=== PATIENT | female | born 1955 | race Caucasian/White ===

== ENCOUNTER 2020-12-21 06:35 | Outpatient (REF) | payer MEDICARE, SELFPAY ==
[2020-12-21 12:02] LABS: Alanine Aminotransferase 35 U/L (0-31); Anion Gap 17 (12-20); Aspartate Amino Transferase 31 U/L (5-31); Blood Urea Nitrogen 14 mg/dL (9-16); Calcium 8.7 mg/dL (8.4-10.2); Carbon Dioxide 25 mmol/L (22-29); Chloride 107 mmol/L (96-108); Cholesterol 137 mg/dL; Estimated Glomerular Filt Rate > 60; Glucose Fasting 111 mg/dL (60-99); HDL Cholesterol 62 mg/dL; LDL Cholesterol Calculated 60 mg/dl; Potassium 4.6 mmol/L (3.3-5.1); Sodium 144 mmol/L (135-145); Triglycerides 79 mg/dL
[2020-12-21 12:03] LABS: Vitamin D 25-OH Total 31.8 ng/mL (>30)
== END 2020-12-21 06:36 | disposition home or self-care (01) ==
LOC: HO.HMGCLDS 06:35
PROVIDERS: PCP Internal Medicine; Visit Provider Internal Medicine
DX: E78.5 Hyperlipidemia, unspecified (principal); I10 Essential (primary) hypertension; Z78.0 Asymptomatic menopausal state
CPT/HCPCS: 36415; 80048; 80061; 82306; 84450; 84460

== ENCOUNTER 2021-04-27 07:38 | Outpatient (REF) | payer MEDICARE, SELFPAY ==
[2021-04-27 11:44] LABS: Alanine Aminotransferase 34 U/L (0-31); Anion Gap 12 (12-20); Aspartate Amino Transferase 29 U/L (5-31); Blood Urea Nitrogen 13 mg/dL (9-16); Calcium 9.1 mg/dL (8.4-10.2); Carbon Dioxide 25 mmol/L (22-29); Chloride 108 mmol/L (96-108); Cholesterol 143 mg/dL; Estimated Glomerular Filt Rate > 60; Glucose Fasting 113 mg/dL (60-99); HDL Cholesterol 57 mg/dL; LDL Cholesterol Calculated 68 mg/dl; Potassium 4.4 mmol/L (3.3-5.1); Sodium 141 mmol/L (135-145); Triglycerides 93 mg/dL
[2021-04-27 11:54] LABS: Vitamin D 25-OH Total 35.4 ng/mL (>30)
== END 2021-04-27 07:39 | disposition home or self-care (01) ==
LOC: HO.HMGCLDS 07:38
PROVIDERS: PCP Internal Medicine; Visit Provider Internal Medicine
DX: E78.5 Hyperlipidemia, unspecified (principal); I10 Essential (primary) hypertension; Z78.0 Asymptomatic menopausal state
CPT/HCPCS: 36415; 80048; 80061; 82306; 84450; 84460

== ENCOUNTER 2021-04-30 08:48 | Outpatient (REF) | payer MEDICARE, SELFPAY ==
[2021-05-01 08:33] LABS: BV Int Neg Control Negative (Negative); BV Int Pos Control Positive (Positive)
== END 2021-04-30 08:49 | disposition home or self-care (01) ==
LOC: HO.LAB 08:48
PROVIDERS: PCP Internal Medicine; Visit Provider Advanced Practice Midwife
DX: Z01.411 Encounter for gynecological examination (general) (routine) with abnormal findings (principal); N95.1 Menopausal and female climacteric states; N89.8 Other specified noninflammatory disorders of vagina
CPT/HCPCS: 87480; 87510; 87660

== ENCOUNTER 2021-06-25 07:56 | Outpatient (REF) | payer MEDICARE, SELFPAY ==
--- NOTE | ~2021-06-25 | MM_ITS ---
EXAMINATION: MM SCREENING DIGITAL BREAST TOMOSYNTHESIS, BILATERAL CLINICAL INFORMATION: Screening. Asymptomatic. The lifetime risk of breast cancer based on the Tyrer-Cuzick Model is 9%. COMPARISON: Mammography: 06/19/2020, 02/19/2019, 02/16/2018 TECHNIQUE: Digital breast tomosynthesis is performed in both the craniocaudal and mediolateral oblique views along with computer-aided detection (CAD). Synthesized 2D images are generated from the tomosynthesis. Additional right CC and additional left MLO views are provided. FINDINGS: There are scattered areas of fibroglandular density (ACR BI-RADS breast composition Category b). There are no significant masses, abnormal calcifications, or other abnormalities. Parenchymal pattern is similar to prior exams. No developing density. The axilla are unremarkable. MM/MM tomosynthesis screening BI IMPRESSION: No mammographic evidence of malignancy. ASSESSMENT: BI-RADS 1: Negative RECOMMENDATION: Routine annual mammography screening. This patient's information was entered into a reminder system with a target due date for their next mammogram.
== END 2021-06-25 07:57 | disposition home or self-care (01) ==
LOC: HO.MAMMO 07:56
PROVIDERS: Visit Provider Internal Medicine
DX: Z12.31 Encounter for screening mammogram for malignant neoplasm of breast (principal)
CPT/HCPCS: 77063; 77067

== ENCOUNTER 2021-10-06 12:00 | Outpatient (REF) | payer MEDICARE, SELFPAY ==
[2021-10-06 12:22] LABS: Binax Internal Control QC Valid; Binax Now Covid-19 Ag Negative (Negative)
== END 2021-10-06 12:01 | disposition home or self-care (01) ==
LOC: HO.HMGCLDS 12:00
PROVIDERS: PCP Internal Medicine; Visit Provider Internal Medicine
DX: J06.9 Acute upper respiratory infection, unspecified (principal)
CPT/HCPCS: 36415

== ENCOUNTER 2021-11-10 07:41 | Outpatient (REF) | payer MEDICARE, SELFPAY ==
[2021-11-10 08:51] LABS: Estimated Average Glucose 117 mg/dL; Hemoglobin A1c % 5.7 %
[2021-11-10 09:05] LABS: Alanine Aminotransferase 21 U/L (0-31); Anion Gap 15 (12-20); Aspartate Amino Transferase 19 U/L (5-31); Blood Urea Nitrogen 15 mg/dL (9-16); Calcium 9.8 mg/dL (8.4-10.2); Carbon Dioxide 25 mmol/L (22-29); Chloride 105 mmol/L (96-108); Cholesterol 155 mg/dL; Estimated Glomerular Filt Rate > 60; Glucose Fasting 112 mg/dL (60-99); HDL Cholesterol 64 mg/dL; LDL Cholesterol Calculated 76 mg/dl; Potassium 4.6 mmol/L (3.3-5.1); Sodium 140 mmol/L (135-145); Triglycerides 78 mg/dL
[2021-11-10 09:05] LABS: Creatinine Urine 85.29 mg/dL; Microalbum/Creatinine Ratio Ur 28.1 ug/mg cr
[2021-11-10 09:26] LABS: Vitamin D 25-OH Total 29.1 ng/mL (>30)
== END 2021-11-10 07:42 | disposition home or self-care (01) ==
LOC: HO.LAB 07:41
PROVIDERS: Absent Provider Internal Medicine Endocrinology, Diabetes & Metabolism; PCP Internal Medicine; Visit Provider Internal Medicine
DX: E11.9 Type 2 diabetes mellitus without complications (principal); E78.5 Hyperlipidemia, unspecified; I10 Essential (primary) hypertension; M85.852 Other specified disorders of bone density and structure, left thigh; Z78.0 Asymptomatic menopausal state
CPT/HCPCS: 36415; 80048; 80061; 82043; 82306; 83036; 84450; 84460

== ENCOUNTER 2021-11-21 11:26 | Outpatient (REF) | payer MEDICARE, SELFPAY ==
--- NOTE | ~2021-11-21 | XR_ITS ---
EXAMINATION: XR RIBS, RIGHT CLINICAL INFORMATION: Chest wall pain COMPARISON: Previous chest x-ray and chest CTA June 2014 TECHNIQUE: 3 views of the right ribs and one view of the chest were obtained. FINDINGS: The cardiac and mediastinal contours are stable. The lungs are clear. There is no pleural effusion. There is a curvilinear lucency seen at the right medial lung apex. This is appreciated in the PA view of the chest. This is not appreciated on the rib views. It is uncertain whether this could represent a small pneumothorax. This is not appreciated on previous exams. There are degenerative changes of the spine. There are postsurgical changes to the cervical spine and surgical clips in the right lower neck. No rib fracture is seen. XR/XR ribs RT min 3V w CXR1V IMPRESSION: No rib fracture seen. Small medial lucency at the right lung apex seen on the PA view of the chest only and not redemonstrated on rib views. It is difficult to exclude a small right apical pneumothorax. Follow-up end expiration chest x-ray should be considered if clinically indicated. Findings will be communicated by the [place] work flow waste machine operator.
== END 2021-11-21 11:27 | disposition home or self-care (01) ==
LOC: HO.HMGCLDS 11:26
PROVIDERS: Visit Provider Internal Medicine
DX: R07.81 Pleurodynia (principal)
CPT/HCPCS: 71101

== ENCOUNTER 2021-11-21 14:40 | Outpatient (REF) | payer MEDICARE, SELFPAY ==
--- NOTE | ~2021-11-21 | XR_ITS ---
EXAMINATION: XR CHEST CLINICAL INFORMATION: Pleura dynamic. Question right apical pneumothorax on the right rib x-ray. COMPARISON: Right RIBS 11/21/2021. TECHNIQUE: 2 views of the chest were obtained. FINDINGS: The lungs are well-expanded and clear of acute pneumonic process. Heart size and pulmonary vascularity is normal. No gross bony abnormality seen. There is mild spondylosis dorsal spine. No lytic process. There are surgical staple in the midline anterior neck from previous intervention. XR/XR chest 2V IMPRESSION: No acute cardiopulmonary process. No visible pneumothorax.
== END 2021-11-21 14:41 | disposition home or self-care (01) ==
LOC: HO.HMGCX 14:40
PROVIDERS: Visit Provider Internal Medicine
DX: R07.81 Pleurodynia (principal)
CPT/HCPCS: 71046

== ENCOUNTER 2021-12-14 08:04 | Outpatient (REF) | payer MEDICARE, SELFPAY ==
--- NOTE | ~2021-12-14 | US_ITS ---
EXAMINATION: US ABDOMEN COMPLETE CLINICAL INFORMATION: Right upper quadrant pain. COMPARISON: Previous abdominal ultrasound January [address] of the abdomen and pelvis January 2017 TECHNIQUE: Real-time imaging of the abdominal viscera. FINDINGS: PANCREAS: Normal. ABDOMINAL AORTA: The proximal, mid, and distal segments are normal in caliber. INFERIOR VENA CAVA: Visualized portions are normal. LIVER: The liver is normal in size. The liver contour is normal. Liver echotexture is increased. No focal hepatic lesion. There is no intrahepatic biliary duct dilatation seen. GALLBLADDER: Normal. The gallbladder is physiologically distended without evidence of stones, sludge, polyps, wall thickening or pericholecystic fluid. COMMON BILE DUCT: Normal in caliber measuring 0.3 cm in diameter. RIGHT KIDNEY: There is a 1 cm cyst in the midpole. There is a 3 mm echogenic density in the upper pole questionable for a stone. No hydronephrosis. No renal calculi or focal parenchymal lesions. The kidney measures 13 cm in maximum dimension. LEFT KIDNEY: Normal. No hydronephrosis. No renal calculi or focal parenchymal lesions. The kidney measures 12 cm in maximum dimension. SPLEEN: The spleen is enlarged. The spleen measures 14.7 cm in maximum dimension. This is similar to previous exams. FREE FLUID: None. US/US abdomen complete IMPRESSION: Echogenic liver probably representing fatty infiltration. Slightly enlarged spleen. Small right renal cyst and question small right renal stone.
== END 2021-12-14 08:05 | disposition home or self-care (01) ==
LOC: HO.HMGCX 08:04
PROVIDERS: Visit Provider Internal Medicine
DX: R10.11 Right upper quadrant pain (principal)
CPT/HCPCS: 76700

== ENCOUNTER 2021-12-25 13:58 | Outpatient (REF) | payer MEDICARE, SELFPAY ==
--- NOTE | ~2021-12-25 | MM_ITS ---
EXAMINATION: BONE DENSITOMETRY CLINICAL INDICATION: Other specified disorders of bone density and structure. COMPARISON: Baseline BD dated 09/04/2018. TECHNIQUE: Using a [employer] DXA System (software version: 13.1) manufactured by [employer], dual-energy x-ray absorptiometry was performed of the lumbar spine and left hip. The images are of good technical quality. Summary results are attached. FINDINGS: AP SPINE L1-L4: Current: BMD 1.244 g/cm2, Z-score 1.0, T-score 0.5, normal, 3.3% increase from baseline (<5% change is not significant). Baseline: BMD 1.204 g/cm2. LEFT FEMUR, NECK: Current: BMD 0.774 g/cm2, Z-score -1.2, T-score -1.9, osteopenia. Baseline: BMD 0.822 g/cm2. LEFT FEMUR, TOTAL: Current: BMD 0.892 g/cm2, Z-score -0.5, T-score -0.9, normal, 4.2% decrease from baseline (<5% change is not significant). Baseline: BMD 0.931 g/cm2. IDENTIFIED RISK FACTORS: Menopause, hysterectomy, glucocorticoids (chronic), history of fracture (adult). HISTORY OF FRACTURE: Other. MEDICATIONS: Vitamin D. MM/XR DEXA axial skeleton IMPRESSION: 1. DIAGNOSIS: Osteopenia based on the lowest T-score value of -1.9 in the femoral neck applying World Health Organization criteria. 2. 10-YEAR FRACTURE RISK PREDICTION, FRAX: Major osteoporotic fracture (clinical spine, forearm, hip or shoulder) 14.5%. Hip fracture 2.3%. 3. Treatment Recommendations: NOF guidelines recommend consideration for treatment in postmenopausal women and men age 50 and older presenting with the following: -A hip or vertebral (clinical or morphometric) fracture. -T-score less than or equal to -2.5 at the femoral neck or spine after appropriate evaluation to exclude secondary causes. -Low bone mass at the hip or spine and a 10-year fracture probability by FRAX of greater than or equal to 3% for hip fracture or greater than or equal to 20% for major osteoporotic fracture based on the [place] adapted WHO algorithm. 4. Other Recommendations: All treatment decisions require clinical judgment and consideration of individual patient factors, including patient preferences, comorbidities, previous drug use, risk factors not captured in the FRAX model (e.g. frailty, falls, vitamin D deficiency, increased bone turnover, interval significant decline in bone density) and possible under or overestimation of fracture risk by FRAX. Additional medical evaluation for secondary cause of low bone mineral density may be appropriate. FUTURE SCAN RECOMMENDATION: People with diagnosed cases of osteoporosis or at high risk for fracture should have regular bone mineral density tests. For patients eligible for Medicare, routine testing is allowed once every 2 years. The testing frequency can be increased to one year for patients who have rapidly progressing disease, those who are receiving or discontinuing medical therapy to restore bone mass, or have additional risk factors.
== END 2021-12-25 13:59 | disposition home or self-care (01) ==
LOC: HO.MAMMO 13:58
PROVIDERS: PCP Internal Medicine; Visit Provider Internal Medicine
DX: Z13.820 Encounter for screening for osteoporosis (principal); M85.852 Other specified disorders of bone density and structure, left thigh; Z78.0 Asymptomatic menopausal state
CPT/HCPCS: 77080

== ENCOUNTER 2022-02-05 11:53 | Outpatient (REF) | payer MEDICARE, SELFPAY ==
[2022-02-05 13:52] LABS: Folate 12.4 ng/mL (> or = 4.0); Vitamin B12 469 pg/mL (200-900)
[2022-02-07 16:21] LABS: Homocysteine 10.7 umol/L (<10.4)
== END 2022-02-05 11:54 | disposition home or self-care (01) ==
LOC: HO.LAB 11:53
PROVIDERS: PCP Internal Medicine; Visit Provider Internal Medicine Endocrinology, Diabetes & Metabolism
DX: D75.89 Other specified diseases of blood and blood-forming organs (principal)
CPT/HCPCS: 36415; 82607; 82746; 83090

== ENCOUNTER 2022-03-04 07:23 | Outpatient (REF) | payer MEDICARE, SELFPAY ==
[2022-03-04 11:28] LABS: Estimated Average Glucose 117 mg/dL; Hemoglobin A1c % 5.7 %
[2022-03-04 11:52] LABS: Alanine Aminotransferase 26 U/L (0-31); Anion Gap 16 (12-20); Aspartate Amino Transferase 23 U/L (5-31); Blood Urea Nitrogen 13 mg/dL (9-16); Calcium 9.1 mg/dL (8.4-10.2); Carbon Dioxide 25 mmol/L (22-29); Chloride 106 mmol/L (96-108); Cholesterol 144 mg/dL; Estimated Glomerular Filt Rate > 60; Glucose Fasting 113 mg/dL (60-99); HDL Cholesterol 60 mg/dL; LDL Cholesterol Calculated 69 mg/dl; Potassium 4.5 mmol/L (3.3-5.1); Sodium 142 mmol/L (135-145); Triglycerides 75 mg/dL
[2022-03-04 12:01] LABS: Vitamin D 25-OH Total 33.1 ng/mL (>30)
== END 2022-03-04 07:24 | disposition home or self-care (01) ==
LOC: HO.HMGCLDS 07:23
PROVIDERS: PCP Internal Medicine; Visit Provider Internal Medicine
DX: E11.9 Type 2 diabetes mellitus without complications (principal); I10 Essential (primary) hypertension; E78.5 Hyperlipidemia, unspecified; E04.2 Nontoxic multinodular goiter; K75.81 Nonalcoholic steatohepatitis (NASH); M85.852 Other specified disorders of bone density and structure, left thigh
CPT/HCPCS: 36415; 80048; 80061; 82306; 83036; 84450; 84460

== ENCOUNTER → 2022-04-30 13:47 | Outpatient (REF) | payer MEDICARE, SELFPAY ==
--- NOTE | 2022-04-30 13:47 | CA_ITS ---
Transthoracic Echocardiogram Patient (Last, First, Middle): Alecia Eldridge S Gender: Female Date of : 1955 Age: 66 Procedure Date: 04/30/2022 Procedure Type: Transthoracic Echocardiogram Location: OP Height: 162.56 cm Weight: 117.94 kg BSA: 2.19 m2 Heart Rate: 72 bpm BP: 137 / 68 mmHg Beer Merchant: SB Referring MD: Osorio Aguirre MD Stem Cleaning Machine Feeder: Thanh Rahman MD Symptoms: I10 - Essential (primary) hypertension Study Quality: Adequate ECG Rhythm: Sinus Conclusions: - 1. Normal LV systolic function with grade 1 diastolic dysfunction 2. Mildly increased gradient across aortic valve which may suggest early aortic stenosis 3. Moderate mitral calcification 4. Normal RV systolic pressure 5. No pericardial effusion Findings Left Ventricle Normal left ventricular size, thickness, and systolic function. The visually estimated ejection fraction is between 60-65%. Spectral Doppler is indicative of an impaired relaxation filling pattern. E/E prime ratio is <8, consistent with normal filling pressures. Evidence suggests grade I (mild) diastolic dysfunction. Peak GLS is -18.8%, within normal limits Right Ventricle Normal right ventricular cavity size and systolic function. Atria Both atria are normal in size. There is no evidence of interatrial shunt. Aortic Valve There is mild calcification of the aortic valve. The peak aortic gradient is 14 mmHg.The mean gradient is 9 mmHg. Mitral Valve There is mild anterior mitral leaflet thickening. There is moderate mitral annular calcification. There is trace mitral valve regurgitation. There is no mitral valve stenosis. Pulmonic Valve The pulmonic valve was not well visualized. Tricuspid Valve Normal tricuspid valve structure. There is trace tricuspid valve regurgitation. The right ventricular systolic pressure is normal. Normal right atrial pressure. There is no evidence of pulmonary hypertension. Great Vessels All visible segments of the aorta are normal in size. The pulmonary artery was not well visualized. Venous The inferior vena cava is normal in size and collapses greater than 50% with inspiration. Pericardium/Pleural There is no evidence of pericardial effusion. Prior Study Comparison slightly increased gradient across aortic valve Measurements 2D Linear Measurements IVSd: 1.16 0.6-0.9/0.6-1.0 cm LVIDd: 4.95 3.9-5.3/4.2-5.9 cm LVIDd Index: 2.26 2.4-3.2/2.2-3.1 cm/m2 LVIDs: 3.41 2.0-3.6 cm LVPWd: 0.99 0.7-1.1 cm LA Diam: 4.20 2.7-3.8/3.0-4.0 cm LAIDs Index: 1.92 1.5-2.3 cm/m2 LV Mass: 245.30 67-162/88-224 g LV Mass Index: 112.01 43-95/49-115 g/m2 LVOT Diam: 1.80 3.0+(-)1.3 cm 2D Systolic Function EF 4C: 65.20 >55% Mitral Valve MV Pk E: 0.89 MV PK A: 0.86 MV Decel Time: 167.00 E/A: 1.00 E'Lateral: 7.94 E'Medial: 7.51 E/E' Med: 11.90 E/E' Lat: 11.30 PHT: 49.00 MVA PHT: 4.49 Decel [place]: 5.37 Aortic Valve AoV Pk Ranjit: 1.89 AoV Mn Ranjit: 1.40 AoV VTI: 0.40 AoV Pk Grad: 14.00 Aov Mn Grad: 9.00 YONY Cont.VTI: 2.08 LVOT LVOT Pk Ranjit: 1.43 LVOT Mn Ranjit: 1.02 LVOT VTI: 0.32 LVOT Pk Grad: 8.00 LVOT Mn Grad: 5.00 LVOT Diam: 1.80 LVOT Area: 2.54 Diastolic Function MV Pk E: 0.89 MV Pk A: 0.86 E/A: 1.00 E'Medial: 7.51 E/E' Med: 11.90 E' Laterial: 7.94 E/E' Lat: 11.30 Right Ventricle TAPSE (mm): 24.80 TVS' Ranjit: 15.30 Tricuspid Valve TR Pk Ranjit: 2.37 TR Pk Grad: 22.00 RA Press: 3.00 RVSP: 25.00 Great Vessels Aorta Sinus of Valsalva: 3.00 2.0-3.5 cm Ao Asc: 3.50 2.1-3.4 cm Ao Arch: 3.10 Pulmonary Veins Pulm Vein S/D 1.50 Pulmonary Valve PV Pk Ranjit: 1.02 Peak PV Grad: 4.00 Updated in Other Vendor System with Status of Final Thanh Rahman MD electronically signed on 05/01/2022 12:06:56 PM with status of Final
== END ==
LOC: HO.CARD 13:47
PROVIDERS: PCP Internal Medicine; Visit Provider Internal Medicine
DX: R01.1 Cardiac murmur, unspecified (principal); I10 Essential (primary) hypertension
CPT/HCPCS: 93306; 93356

== ENCOUNTER → 2022-05-29 07:41 | Outpatient (BNVA) | payer MEDICARE, SELFPAY | PROVIDERS: PCP Internal Medicine; Visit Provider Nurse Practitioner Family | DX: G47.9 Sleep disorder, unspecified (principal); R06.83 Snoring; R53.82 Chronic fatigue, unspecified; R06.01 Orthopnea; E66.9 Obesity, unspecified; Z68.41 Body mass index [BMI] 40.0-44.9, adult | CPT/HCPCS: 99202 ==

== ENCOUNTER 2022-06-28 07:44 | Outpatient (REF) | payer MEDICARE, SELFPAY ==
--- NOTE | ~2022-06-28 | MM_ITS ---
EXAMINATION: MM SCREENING DIGITAL BREAST TOMOSYNTHESIS, BILATERAL CLINICAL INFORMATION: Screening. Asymptomatic. The lifetime risk of breast cancer based on the Tyrer-Cuzick Model is 7%. COMPARISON: Mammography: 06/25/2021, 06/19/2020, 02/19/2019 TECHNIQUE: Digital breast tomosynthesis is performed in both the craniocaudal and mediolateral oblique views along with computer-aided detection (CAD). Synthesized 2D images are generated from the tomosynthesis. FINDINGS: There are scattered areas of fibroglandular density (ACR BI-RADS breast composition Category b). There are no significant masses, abnormal calcifications, or other abnormalities. Breast tissue composition borders on predominantly fatty. Background stromal markings are normal. No significant changes. MM/MM tomosynthesis screening BI IMPRESSION: No mammographic evidence of malignancy. ASSESSMENT: BI-RADS 1: Negative RECOMMENDATION: Routine annual mammography screening. This patient's information was entered into a reminder system with a target due date for their next mammogram.
== END 2022-06-28 07:45 | disposition home or self-care (01) ==
LOC: HO.MAMMO 07:44
PROVIDERS: PCP Internal Medicine; Visit Provider Internal Medicine
DX: Z12.31 Encounter for screening mammogram for malignant neoplasm of breast (principal)
CPT/HCPCS: 77063; 77067

== ENCOUNTER → 2022-07-04 21:56 | Outpatient (REF) | payer MEDICARE, SELFPAY | LOC: HO.SL 21:56 | PROVIDERS: Visit Provider Nurse Practitioner Family | DX: G47.33 Obstructive sleep apnea (adult) (pediatric) (principal); R06.02 Shortness of breath | CPT/HCPCS: 95810 ==

== ENCOUNTER → 2022-08-01 13:33 | Outpatient (BNVA) | payer MEDICARE, SELFPAY | PROVIDERS: PCP Internal Medicine; Referring Provider Internal Medicine; Visit Provider Internal Medicine Cardiovascular Disease | DX: R07.89 Other chest pain (principal); I35.0 Nonrheumatic aortic (valve) stenosis; I44.7 Left bundle-branch block, unspecified | CPT/HCPCS: 93005; 99202 ==

== ENCOUNTER → 2022-09-02 08:19 | Outpatient (REF) | payer MEDICARE, SELFPAY ==
--- NOTE | ~2022-09-02 | NM_ITS ---
Myocardial perfusion study Indication: Chest pain with left bundle branch block Technique: The patient was brought in for a Lexiscan perfusion study on 09/02/2022. Patient performed low-level exercise and was injected 0.4 mg of Lexiscan intravenously. Within a minute of injection, 45 mCi of sestamibi was given intravenously. Images were obtained using the SPECT gamma camera interlaced with the gating device. Images were obtained in supine position. Resting perfusion study was performed on 09/03/2022. Patient was administered 45 mCi of sestamibi intravenously at rest. Images were then obtained in supine position. Images obtained with and without CT attenuation. Total DLP 158 mGy-cm. Images were processed with the software and compared side to side in short axis, horizontal long axis and vertical long axis views. Findings: Both stress and rest perfusion study was suboptimal due to intense uptake interfering with myocardial uptake in the inferior wall The stress perfusion study showed non attenuated images show overall normal uptake of radiotracer in all segments of LV myocardium with some of the apical wall. Attenuation corrected images show mildly reduced uptake in the apex as well as mildly reduced uptake in the basal lateral wall of the LV myocardium.. The gated study shows normal LV systolic function with calculated LVEF of 55%. LV cavity is normal in size. The gated study shows normal systolic wall thickening and contraction of segments. Resting study shows non attenuated images show mildly reduced uptake in the distal lateral and apex of the LV myocardium. Attenuation corrected images show mildly reduced uptake in the distal septal wall of the LV myocardium.. Gating at rest reveals normal systolic wall motion with ejection fraction at 49%. The findings are consistent with likely normal myocardial perfusion. NM/NM agnes perf SPECT rest & str Impression: 1. Myocardial perfusion imaging study shows likely normal myocardial perfusion 2. Gated LVEF is 55% 3. Transient ischemic dilatation not present EKG is Nondiagnostic for ischemia
--- NOTE | 2022-09-02 08:21 | CA_ITS ---
Acquisition Time: 2022-09-02 08:39:34 Total Exercise Time: 00:02:00 Test Indications: Chest Pain unspecified, LBBB uns Medications: See H Protocol: LEXISCAN Max HR: 100 BPM 64% of Pred: 154 BPM Max BP: 130/070 mmHG Max Work Load: 1.0 METS Pharmacological stress test with Lexiscan injection, while sitting, without anginal symptoms, without arrythmia, with normotensive response to injection, with nondiagnostic EKG for ischemia. Nuclear images pending. Test reviewed with Dr Rahman. Referred By: Thanh Rahman Overread By: RUSSEL SMITH
== END ==
LOC: HO.CARD 08:19
PROVIDERS: Visit Provider Internal Medicine Cardiovascular Disease
DX: R07.89 Other chest pain (principal); I44.7 Left bundle-branch block, unspecified
CPT/HCPCS: 78452; 93017; A9500; J0280; J2785

== ENCOUNTER 2022-12-02 15:09 | Outpatient (REF) | payer MEDICARE, SELFPAY ==
[2022-12-02 17:22] LABS: TSH reflex Free T4 2.37 uIU/mL (0.32-4.0)
== END 2022-12-02 15:10 | disposition home or self-care (01) ==
LOC: HO.HMGCLDS 15:09
PROVIDERS: PCP Internal Medicine; Visit Provider Internal Medicine Endocrinology, Diabetes & Metabolism
DX: E03.9 Hypothyroidism, unspecified (principal)
CPT/HCPCS: 36415; 84443

== ENCOUNTER 2022-12-03 07:28 | Outpatient (REF) | payer MEDICARE, SELFPAY ==
[2022-12-03 11:39] LABS: MANUAL DIFF FLAG NO
[2022-12-03 11:48] LABS: Basophils Absolute Auto 0.1 X10*3/uL (0.0-0.2); Basophils Percent Auto 0.7 % (0-2); Eosinophils Absolute Auto 0.3 X10*3/uL (0.0-0.4); Eosinophils Percent Auto 3.7 % (0-4); Hematocrit 40.3 % (37.0-47.0); Hemoglobin 13.3 g/dl (12.0-16.0); Imm Gran Abs Auto 0.03 X10*3/uL (0.00-0.03); Imm Gran Pct Auto 0.4 % (0.0-0.4); Lymphocytes Absolute Auto 1.3 X10*3/uL (1.2-4.9); Lymphocytes Percent Auto 19.3 % (20-40); Mean Corpuscular Hemoglobin 32.5 pg (27.0-33.0); Mean Corpuscular Volume 98.5 fL (80.0-98.0); Mean Platelet Volume 12.1 fL (9.4-12.3); Monocytes Absolute Auto 0.4 X10*3/uL (0.1-1.2); Monocytes Percent Auto 6.3 % (2-11); Neutrophils Absolute Auto 4.8 x10*3/uL (2.0-8.3); Neutrophils Percent Auto 69.6 % (45-73); Platelet Count 181 X10*3/uL (160-400); Red Blood Count 4.09 X10*6/uL (4.20-5.50); Red Cell Distribution Width 13.4 % (11.0-16.0); White Blood Count 6.8 X10*3/uL (4.8-10.8)
[2022-12-03 12:33] LABS: Alanine Aminotransferase 34 U/L (0-31); Anion Gap 13 (12-20); Aspartate Amino Transferase 30 U/L (5-31); Blood Urea Nitrogen 15 mg/dL (9-16); Calcium 8.5 mg/dL (8.4-10.2); Carbon Dioxide 26 mmol/L (22-29); Chloride 108 mmol/L (96-108); Cholesterol 152 mg/dL; Estimated Glomerular Filt Rate > 60; Glucose Fasting 123 mg/dL (60-99); HDL Cholesterol 57 mg/dL; LDL Cholesterol Calculated 78 mg/dl; Potassium 4.4 mmol/L (3.3-5.1); Sodium 143 mmol/L (135-145); Triglycerides 89 mg/dL
[2022-12-03 13:01] LABS: Folate 11.9 ng/mL (> or = 4.0); Free T4 (Free Thyroxine) 0.87 ng/dL (0.71-1.85); Thyroid Stimulating Hormone 3.51 uIU/mL (0.32-4.0); Vitamin B12 564 pg/mL (200-900); Vitamin D 25-OH Total 28.3 ng/mL (>30)
== END 2022-12-03 07:29 | disposition home or self-care (01) ==
LOC: HO.HMGCLDS 07:28
PROVIDERS: PCP Internal Medicine; Visit Provider Internal Medicine
DX: E03.9 Hypothyroidism, unspecified (principal); M85.852 Other specified disorders of bone density and structure, left thigh; I10 Essential (primary) hypertension; E78.5 Hyperlipidemia, unspecified; E11.9 Type 2 diabetes mellitus without complications
CPT/HCPCS: 36415; 80048; 80061; 82306; 82607; 82746; 84439; 84443; 84450; 84460; 85025

== ENCOUNTER 2022-12-09 09:19 | Outpatient (AMB) | payer MEDICARE, SELFPAY ==
--- NOTE | 2022-12-09 09:45 | MHC.PC.OV ---
Vital Signs 12/09/22 09:53 Height 5 ft 4 in Weight 275 lb BMI 47.2 BP 135/80 Blood Pressure Location Rt radial Position Sitting Pulse 65 Pulse Source Pulse Oximeter Pulse Oximetry (%) 97 Oxygen Delivery Method Room Air Intake Visit Reasons: Annual Physical Intake Note: Pt is here today for her PE Allergies metformin Adverse Reaction (Verified 10/23/23 16:27) Diarrhea seasonal Allergy (Unknown, Uncoded 10/23/23 16:27) sneezing, watery itchy eyes Medication List - Last Reconciled 12/09/22 by Akanksha Escamilla MD aspirin (Adult Low Dose Aspirin) 81 mg PO DAILY atorvastatin 10 mg PO DAILY blood sugar diagnostic (Nonlinear Dynamics Ultra Blue Test Strip) Check blood sugar twice a day before meals as directed cholecalciferol (vitamin D3) 50 mcg PO DAILY cinnamon bark (Cinnamon) 1,000 mg PO DAILY fexofenadine (Kellen Allergy) 180 mg PO DAILY gabapentin 800 mg PO TID levothyroxine 88 mcg PO QAM lisinopril 10 mg PO DAILY 90 days mecobalamin (vitamin B12) (B12 Active) 1,000 mcg PO DAILY salsalate 750 mg PO BID PRN turmeric 1,000 mg PO DAILY Tobacco use date assessed: 12/09/22 Fall risk assessment: No Falls in past year Last assessed Fall Risk: 12/09/22 [facility] Annual Physical HPI Details [age]-year-old lady here today for her physical exam. She has had a bone density done 2021 which showed only presence of osteopenia in left femoral neck. Has an appointment for her screening mammogram later this year. She sees [place] at [facility] for her routine Pap and pelvic exam, scheduled later this year for follow-up and repeat Pap smear. She had a negative colonoscopy screening done by Dr. Ross in 2016, repeat due in 2026. She is up-to-date with all her vaccinations, gets yearly flu shot. She sees Dr. Carolyn Stiles for follow-up on her hypothyroidism, and benign adrenal adenoma. Has diabetes mellitus, controlled with diet, and has hyperlipidemia, stable controlled on atorvastatin. She also has hypertension currently taking lisinopril 10 mg daily. Takes gabapentin for cervical radiculopathy due to degenerative disc disease in cervical area. [facility] Medical History (Updated 10/23/23 @ 17:19 by Akanksha Escamilla MD) Diabetes mellitus with microalbuminuria, without long-term current use of insulin Chronic fatigue Obesity Sleeps in sitting position due to orthopnea Excessive daytime sleepiness Primary hypothyroidism Osteoarthritis Insomnia Osteopenia of left femoral neck Adrenal mass, right Mixed stress and urge urinary incontinence Multinodular goiter (nontoxic) Chronic venous insufficiency of lower extremity Migraine Osteoarthritis, multiple sites Morbid obesity due to excess calories Melanoma Left malleolar fracture RLS (restless legs syndrome) Thyroid nodule Cervical radiculopathy due to degenerative joint disease of spine LEWIS (nonalcoholic steatohepatitis) Type 2 diabetes mellitus without complication, with no history of insulin use Essential hypertension Dyslipidemia Surgical History (Updated 10/23/23 @ 17:19 by Akanksha Escamilla MD) History of prolapse of bladder Hx of fusion of cervical spine H/O cervical discectomy H/O melanoma excision History of bilateral tubal ligation History of tonsillectomy and adenoidectomy History of bilateral knee replacement Family History Father Colon cancer Skin cancer Prostate cancer Rectal cancer Mother Diabetes mellitus CAD (coronary artery disease) Social History Household Members: Spouse Housing: House Are you a primary customer care coordinator to a significant other at home: No Do you presently have visiting nurse or other home services: No Alcohol intake: never Patient Tobacco Use Status: Never used Tobacco e-Cigarette/Vaping Use: Never Used Second Hand Smoke Exposure: No Substance Use Type: Marijuana service: No Current occupational status: retired Sexual orientation: Straight/Heterosexual Gender identity: Female Cognitive needs: No Hearing needs: No Vision needs: Yes Questionnaire PHQ-9 Over the last 2 weeks, how often have you been bothered by any of the following problems? 1. Little interest or pleasure in doing things: several days 2. Feeling down, depressed, or hopeless: not at all 3. Trouble falling or staying asleep, or sleeping too much: nearly every day 4. Feeling tired or having little energy: several days 5. Poor appetite or overeating: several days 6. Feeling bad about yourself - or that you are a failure or have let yourself or your family down: not at all 7. Trouble concentrating on things, such as reading the newspaper or watching television: not at all 8. Moving or speaking so slowly that other people could have noticed. Or the opposite - being so fidgety or restless that you have been moving around a lot more than usual: not at all 9. Thoughts that you would be better off or of hurting yourself in some way: not at all Total score: 6 Depression Screening Interpretation: Negative 01855 - PHQ-9 Billing: Yes Source: Developed by Drs. Antwon Jones, Edie Zhang, Dandre Sharif and colleagues, with an educational bret from [employer]. Thrive Questionnaire Date Thrive assessed: 12/09/22 I am a: Patient What is your living situation today?: I have a steady place to live Within the past 12 months, did the food you bought not last and you didn't have the money to get more?: Never true Within the past 12 months, did you worry whether your food would run out before you got money to buy more?: Never true Do you have trouble paying for medicines?: No Do you have trouble getting transportation to medical appointments?: No Do you have trouble paying your heating and electricity bill?: No Do you have trouble taking care of your child, family member or friend?: No Do you have trouble with day-to-day activities such as bathing, preparing meals, shopping, managing finances, etc.?: No Are you currently unemployed and looking for a job?: No Are you interested in more education?: No AUDIT C Alcohol Use Questionnaire (AUDIT-C) 1. How often do you have a drink containing alcohol?: Never Total Score: 0 TOM-7 AMB Questionnaire TOM-7 Date TOM - 7 assessed: 12/09/22 Feeling nervous, anxious, or on edge: 0 = Not at all Not being able to stop or control worryin = Several days Worrying too much about different things: 1 = Several days Trouble relaxin = Several days Being so restless that it is hard to sit still: 0 = Not at all Becoming easily annoyed or irritable: 0 = Not at all Feeling afraid as if something awful might happen: 0 = Not at all Total TOM-7 score (0-4 normal; 5-9 mild; 10-14 moderate; 15-21 severe): 3 Source: Developed by Drs. Antwon Jones, Edie Zhang, Dandre Sharif and colleagues, with an educational bret from [employer]. TOM-7 Assessment Billing TOM-7 Assessment Tool: TOM-7 Assessment 64426 Review of Systems Const Denies fever(s), Denies headache(s) and Denies weakness Eyes Details: Used to see Dr. Rodriguez, last eye exam was in 2020 Denies change in vision ENT Denies dizziness and Denies headache(s) Card Denies chest pain, Denies chest pain with activity, Denies syncope, Denies rapid heart rate, Denies pedal edema, Denies lightheadedness, Denies palpitations, Denies dyspnea and Denies dyspnea on exertion Resp Denies cough, Denies dyspnea and Denies dyspnea on exertion GI Denies hematochezia and Denies change in stool character Reports no additional complaints Musc Denies abnormal gait, Denies muscle cramps, Denies muscle weakness, Denies numbness, Denies radiating pain into limb and Denies tingling Skin/Breast Denies breast pain, Denies breast mass, Denies lesions and Denies rash Neuro Denies Abnormal speech present, Denies abnormal gait, Denies dizziness, Denies syncope, Denies headache(s), Denies numbness, Denies tingling and Denies weakness Psych Reports no additional complaints Endo Denies palpitations Hardy/Lymph Reports no additional complaints Aller/Immun Reports no additional complaints Physical exam (Primary Care) Vital Signs: Last Vital Signs Pulse 65 12/09/22 09:53 BP 135/80 12/09/22 09:53 Pulse Ox 97 12/09/22 09:53 Oxygen Delivery Method Room Air 12/09/22 09:53 BMI result Body Mass Index 47.2 BMI Assessment/Plan discussion: High BMI High, discussed plan: lifestyle, weight reduction, dietary and physical activity Tobacco/Smoking Status: Tobacco use Status Tobacco use date assessed 12/09/22 12/09/22 09:48 Patient Tobacco Use Status Never used Tobacco 12/09/22 09:48 e-Cigarette/Vaping Use Never Used 12/09/22 09:48 PHQ-9: PHQ-9 Score PHQ-9: Total score 8 12/10/22 01:16 Depression Screening Interpretation: Negative Thrive Assessment: Date of Thrive Assessment Date Thrive assessed 12/09/22 12/09/22 09:53 Const General: cooperative, comfortable and no acute distress Nutritional Appearance: obese morbidly obese Orientation/consciousness: patient oriented x3 Limitations: ambulation with cane HENMT Mouth: Normal oral and palatal mucosa present and moist mucous membranes Eyes General: appearance normal, both eyes and all related structures Neck Neck: Yes full ROM, Yes no lymphadenopathy and Yes supple Chest Breast/axilla palpation: normal palpation of the breasts Resp Effort & Inspection: normal respiratory effort, able to speak in complete sentences and symmetric chest movement Auscultation: clear to auscultation bilaterally Cardio Other: S1-S2 present regular and rhythm GI Palpation (GI): Soft to palpation, nontender, no guarding and no masses Auscultation: normal bowel sounds Other: Sees [facility] for her routine Pap and pelvic exam, has an appointment later this year General: Yes no CVA tenderness Back/Spine/Pelvis Back: no CVA tenderness and No back tenderness Skin General skin exam: no rashes or lesions noted Neuro General: patient oriented x3, moves all extremities, Normal light touch and pain sensation, no focal motor deficits, CN's II-XI intact bilaterally and normal sensation to monofilament Speech: No Abnormal speech present Extrem General: Yes full ROM and Yes no joint enlargement Psych Appearance: grossly normal and well kempt Mental Status: mental status grossly normal Speech and movement: Normal speech and movement present Affect: normal affect Attitude: cooperative Thought process: Normal thought process present Thought content: Normal thought content present Assessment and Plan Assessment & Plan (1) Annual visit for general adult medical examination with abnormal findings: Code(s): Z00.01 - Encounter for general adult medical examination with abnormal findings Plan: Recent fasting labs reviewed with patient. Continue dental visit every 6 months and yearly eye exams, for diabetes retinopathy screening. Take adequate calcium in diet and vitamin-D 3 at 2000 IU per cap once a day, in addition to weight-bearing exercises to help maintain good muscle tone and weight control. Instructed to do self-breast exam, and with yearly mammogram,, and up-to-date with her bone density scan. She is also up-to-date with her screening colonoscopy, has had all her vaccinations already (2) Osteopenia of left femoral neck: Code(s): M85.852 - Other specified disorders of bone density and structure, left thigh Plan: Continue with taking vitamin-D 3 supplements and adequate calcium from dietary sources, try to do regular weight-bearing exercise can do resistance bands when sitting. Up-to-date with bone density scan (3) Type 2 diabetes mellitus without complication, with no history of insulin use: Comment: Followed by Dr. Carolyn Stiles Code(s): E11.9 - Type 2 diabetes mellitus without complications Plan: Currently diet controlled (4) Essential hypertension: Code(s): I10 - Essential (primary) hypertension Plan: Continue with lisinopril 10 mg daily (5) Dyslipidemia: Code(s): E78.5 - Hyperlipidemia, unspecified Plan: Continue atorvastatin 10 mg daily (6) ISABELLA (obstructive sleep apnea): Comment: A moderate degree of sleep apnea with increased severity in REM sleep. The total AHI was 14/hr, REM AHI was 33/hr and oxygen prasanna was 72% Code(s): G47.33 - Obstructive sleep apnea (adult) (pediatric) (7) Primary hypothyroidism: Comment: ff'd by Dr Carolyn Stiles Code(s): E03.9 - Hypothyroidism, unspecified Plan: On levothyroxine followed by Dr. Carolyn Stiles (8) Adrenal mass, right: Comment: Diagnosed 12/11/2018, negative hormonal screening for hyper aldosteronism [place]'s or pheochromocytoma, evaluated at [facility] endocrine clinic Code(s): E27.8 - Other specified disorders of adrenal gland Plan: Asymptomatic, followed by endocrine clinic at [facility] (9) Thyroid nodule: Comment: Followed at [facility] by Dr. Carolyn Stiles Code(s): E04.1 - Nontoxic single thyroid nodule Plan: Followed by endocrine clinic (10) Cervical radiculopathy due to degenerative joint disease of spine: Code(s): M47.22 - Other spondylosis with radiculopathy, cervical region Plan: Currently on gabapentin Orders: Orders Hemoglobin A1c 04/29/23 E66.9 - Obesity, unspecified, M85.852 - Other specified disorders of bone density and structure, left thigh, E11.9 - Type 2 diabetes mellitus without complications, I10 - Essential (primary) hypertension, E78.5 - Hyperlipidemia, unspecified Lipid Panel 04/29/23 E66.9 - Obesity, unspecified, M85.852 - Other specified disorders of bone density and structure, left thigh, E11.9 - Type 2 diabetes mellitus without complications, I10 - Essential (primary) hypertension, E78.5 - Hyperlipidemia, unspecified Vitamin D 25-OH Total 04/29/23 E66.9 - Obesity, unspecified, M85.852 - Other specified disorders of bone density and structure, left thigh, E11.9 - Type 2 diabetes mellitus without complications, I10 - Essential (primary) hypertension, E78.5 - Hyperlipidemia, unspecified Alanine Aminotransferase 04/29/23 E66.9 - Obesity, unspecified, M85.852 - Other specified disorders of bone density and structure, left thigh, E11.9 - Type 2 diabetes mellitus without complications, I10 - Essential (primary) hypertension, E78.5 - Hyperlipidemia, unspecified Aspartate Amino Transferase 04/29/23 E66.9 - Obesity, unspecified, M85.852 - Other specified disorders of bone density and structure, left thigh, E11.9 - Type 2 diabetes mellitus without complications, I10 - Essential (primary) hypertension, E78.5 - Hyperlipidemia, unspecified Basic Metabolic Panel Fasting 04/29/23 E66.9 - Obesity, unspecified, M85.852 - Other specified disorders of bone density and structure, left thigh, E11.9 - Type 2 diabetes mellitus without complications, I10 - Essential (primary) hypertension, E78.5 - Hyperlipidemia, unspecified Vitamin B12 and Folate 04/29/23 E66.9 - Obesity, unspecified, M85.852 - Other specified disorders of bone density and structure, left thigh, E11.9 - Type 2 diabetes mellitus without complications, I10 - Essential (primary) hypertension, E78.5 - Hyperlipidemia, unspecified Microalbumin, Random (w Creat) 04/29/23 E11.9 - Type 2 diabetes mellitus without complications Medications: Refilled atorvastatin 10 mg PO DAILY 90 caps 3RF gabapentin 800 mg PO TID 270 caps 3RF levothyroxine 88 mcg PO QAM 90 caps 3RF lisinopril 10 mg PO DAILY 90 caps 3RF 90 days salsalate 750 mg PO BID PRN 180 caps 3RF for pain Coding Level of Care Code Est Pt Prev Care >65y(05802) Diagnoses Annual visit for general adult medical examination with abnormal findings Z00.01 Osteopenia of left femoral neck M85.852 Type 2 diabetes mellitus without complication, with no history of insulin use E11.9 Essential hypertension I10 Dyslipidemia E78.5 ISABELLA (obstructive sleep apnea) G47.33 Primary hypothyroidism E03.9 Adrenal mass, right E27.8 Thyroid nodule E04.1 Cervical radiculopathy due to degenerative joint disease of spine M47.22 Additional Codes TOM-7 Assessment Billing - TOM-7 Assessment Tool: TOM-7 Assessment [id number] ([id number])
[2022-12-09 09:53] VITALS: BP 135/80; PULSE 65; O2SAT 97; BMI 47.2
== END 2022-12-09 10:51 | disposition home or self-care (01) ==
LOC: HO.HMGC 09:19
PROVIDERS: PCP Internal Medicine; Visit Provider Internal Medicine
DX: Z00.00 Encounter for general adult medical examination without abnormal findings (principal); E11.69 Type 2 diabetes mellitus with other specified complication; E27.8 Other specified disorders of adrenal gland; M85.852 Other specified disorders of bone density and structure, left thigh; I10 Essential (primary) hypertension; E78.5 Hyperlipidemia, unspecified; G47.33 Obstructive sleep apnea (adult) (pediatric); E03.9 Hypothyroidism, unspecified; E04.1 Nontoxic single thyroid nodule; M47.22 Other spondylosis with radiculopathy, cervical region
CPT/HCPCS: 99397

== ENCOUNTER 2023-05-08 06:02 | Outpatient (REF) | payer MEDICARE, SELFPAY ==
[2023-05-08 12:36] LABS: Thyroid Stimulating Hormone 4.24 uIU/mL (0.32-4.0)
[2023-05-08 12:53] LABS: Creatinine Urine 102.75 mg/dL
== END 2023-05-08 06:03 | disposition home or self-care (01) ==
LOC: HO.HMGCLDS 06:02
PROVIDERS: Absent Provider Internal Medicine Endocrinology, Diabetes & Metabolism; PCP Internal Medicine; Visit Provider Internal Medicine
DX: E11.9 Type 2 diabetes mellitus without complications (principal); E03.9 Hypothyroidism, unspecified
CPT/HCPCS: 36415; 82043; 84443

== ENCOUNTER 2023-05-13 06:07 | Outpatient (REF) | payer MEDICARE, SELFPAY ==
[2023-05-13 11:31] LABS: Estimated Average Glucose 123 mg/dL; Hemoglobin A1c % 5.9 %
[2023-05-13 12:08] LABS: Alanine Aminotransferase 28 U/L (0-31); Anion Gap 12 (12-20); Aspartate Amino Transferase 26 U/L (5-31); Blood Urea Nitrogen 14 mg/dL (9-16); Calcium 9.2 mg/dL (8.4-10.2); Carbon Dioxide 26 mmol/L (22-29); Chloride 108 mmol/L (96-108); Cholesterol 144 mg/dL; Estimated Glomerular Filt Rate > 60; Glucose Fasting 123 mg/dL (60-99); HDL Cholesterol 62 mg/dL; LDL Cholesterol Calculated 62 mg/dl; Potassium 4.4 mmol/L (3.3-5.1); Sodium 142 mmol/L (135-145); Triglycerides 104 mg/dL
[2023-05-13 12:10] LABS: Vitamin D 25-OH Total 40.3 ng/mL (>30)
[2023-05-13 12:27] LABS: Folate 9.6 ng/mL (> or = 4.0); Vitamin B12 592 pg/mL (200-900)
== END 2023-05-13 06:08 | disposition home or self-care (01) ==
LOC: HO.HMGCLDS 06:07
PROVIDERS: PCP Internal Medicine; Visit Provider Internal Medicine
DX: E11.9 Type 2 diabetes mellitus without complications (principal); E66.9 Obesity, unspecified; E78.5 Hyperlipidemia, unspecified; M85.852 Other specified disorders of bone density and structure, left thigh; D75.89 Other specified diseases of blood and blood-forming organs; E66.01 Morbid (severe) obesity due to excess calories; N95.9 Unspecified menopausal and perimenopausal disorder; I10 Essential (primary) hypertension
CPT/HCPCS: 36415; 80048; 80061; 82306; 82607; 82746; 83036; 84450; 84460

== ENCOUNTER 2023-05-15 10:04 | Outpatient (AMB) | payer MEDICARE, SELFPAY ==
--- NOTE | 2023-05-15 10:11 | A.OFFPC_ITS ---
Vital Signs 05/15/23 10:12 Weight 278 lb BP 112/78 Blood Pressure Location Rt brachial Position Sitting Pulse 70 Pulse Source Pulse Oximeter Pulse Oximetry (%) 97 Oxygen Delivery Method Room Air Intake Visit Reasons: 5 month follow up HTN, DM Intake Note: Patient here for follow up on hypertension and DM. Allergies metformin Adverse Reaction (Verified 10/23/23 16:27) Diarrhea seasonal Allergy (Unknown, Uncoded 10/23/23 16:27) sneezing, watery itchy eyes Medication List - Last Reconciled 05/15/23 by Akanksha Escamilla MD aspirin (Adult Low Dose Aspirin) 81 mg PO DAILY atorvastatin 10 mg PO DAILY blood sugar diagnostic ([email or web address] Ultra Blue Test Strip) Check blood sugar twice a day before meals as directed cholecalciferol (vitamin D3) 50 mcg PO DAILY cinnamon bark (Cinnamon) 1,000 mg PO DAILY fexofenadine (Kellen Allergy) 180 mg PO DAILY gabapentin 800 mg PO TID levothyroxine 88 mcg PO QAM lisinopril 10 mg PO DAILY 90 days mecobalamin (vitamin B12) (B12 Active) 1,000 mcg PO DAILY salsalate 750 mg PO BID turmeric 1,000 mg PO DAILY Tobacco use date assessed: 12/09/22 HPI 5 month follow up HTN, DM HPI Details 57-year-old lady here today for follow-u p on her diabetes mellitus, hypertension , and dyslipidemia. She has been taking her medications as directed, compliant with diet and tries to exercise as much as possible However she is currently taking care of her who has ALS. . Recent fasting labs done showed lipids, diabetes control and renal function electrolytes within normal limits. Her TSH however is mildly elevated, and patient has been feeling more fatigued lately, unsure whether it is from her thyroid or from the stress of taking care of her .. Patient states that she will just discuss this with her deputy chief executive at [facility] Dr. Stiles when she sees her for her next follow-up visit [facility] Medical History (Updated 10/23/23 @ 17:19 by Akanksha Escamilla MD) Diabetes mellitus with microalbuminuria, without long-term current use of insulin Chronic fatigue Obesity Sleeps in sitting position due to orthopnea Excessive daytime sleepiness Primary hypothyroidism Osteoarthritis Insomnia Osteopenia of left femoral neck Adrenal mass, right Mixed stress and urge urinary incontinence Multinodular goiter (nontoxic) Chronic venous insufficiency of lower extremity Migraine Osteoarthritis, multiple sites Morbid obesity due to excess calories Melanoma Left malleolar fracture RLS (restless legs syndrome) Thyroid nodule Cervical radiculopathy due to degenerative joint disease of spine LEWIS (nonalcoholic steatohepatitis) Type 2 diabetes mellitus without complication, with no history of insulin use Essential hypertension Dyslipidemia Surgical History (Updated 10/23/23 @ 17:19 by Akanksha Escamilla MD) History of prolapse of bladder Hx of fusion of cervical spine H/O cervical discectomy H/O melanoma excision History of bilateral tubal ligation History of tonsillectomy and adenoidectomy History of bilateral knee replacement Family History Father Colon cancer Skin cancer Prostate cancer Rectal cancer Mother Diabetes mellitus CAD (coronary artery disease) Social History Household Members: Spouse Housing: House Are you a primary career professional to a significant other at home: No Do you presently have visiting nurse or other home services: No Alcohol intake: never Patient Tobacco Use Status: Never used Tobacco e-Cigarette/Vaping Use: Never Used Second Hand Smoke Exposure: No Substance Use Type: Marijuana service: No Current occupational status: retired Sexual orientation: Straight/Heterosexual Gender identity: Female Cognitive needs: No Hearing needs: No Vision needs: Yes Questionnaire Thrive Questionnaire Date Thrive assessed: 12/09/22 AUDIT C Alcohol Use Questionnaire (AUDIT-C) 1. How often do you have a drink containing alcohol?: Never 3. How often do you have six or more drinks on one occasion?: Never Total Score: 0 TOM-7 AMB Questionnaire TOM-7 Date TOM - 7 assessed: 12/09/22 Feeling nervous, anxious, or on edge: 0 = Not at all Not being able to stop or control worryin = Several days Worrying too much about different things: 0 = Not at all Trouble relaxin = Not at all Being so restless that it is hard to sit still: 0 = Not at all Becoming easily annoyed or irritable: 1 = Several days Feeling afraid as if something awful might happen: 2 = More than half the days Total TOM-7 score (0-4 normal; 5-9 mild; 10-14 moderate; 15-21 severe): 4 Source: Developed by Drs. Antwon Jones, Edie Zhang, Dandre Sharif and colleagues, with an educational bret from [employer]. TOM-7 Assessment Billing TOM-7 Assessment Tool: TOM-7 Assessment 07444 Review of Systems Const Denies body aches, Denies fever(s), Denies headache(s) and Denies weakness Eyes Details: She sees Dr. Gallego and is up-to-date with her diabetes retinopathy screening Denies change in vision ENT Denies dizziness, Denies headache(s), Denies nasal congestion, Denies nasal discharge and Denies sore throat Card Denies chest pain, Denies lightheadedness, Denies palpitations and Denies dyspnea Resp Denies chest congestion, Denies cough, Denies dyspnea and Denies wheezing GI Denies abdominal pain, Denies change in bowel habits and Denies heartburn Denies hematuria, Denies urinary frequency, Denies dysuria and Denies urinary urgency Musc Denies arthralgias, Denies joint swelling and Reports stiffness Skin/Breast Denies breast pain, Denies breast mass and Denies rash Neuro Denies dizziness, Denies headache(s) and Denies weakness Psych Reports no additional complaints Endo Denies polydipsia, Denies polyuria and Denies palpitations Hardy/Lymph Denies easy bruising Aller/Immun Denies seasonal rhinorrhea and Denies wheezing Physical exam (Primary Care) Vital Signs: Last Vital Signs Pulse 70 05/15/23 10:12 BP 112/78 05/15/23 10:12 Pulse Ox 97 05/15/23 10:12 Oxygen Delivery Method Room Air 05/15/23 10:12 BMI Assessment/Plan discussion: High BMI High, discussed plan: lifestyle, weight reduction, dietary and physical activity Tobacco/Smoking Status: Tobacco use Status Tobacco use date assessed 12/09/22 05/15/23 10:12 Patient Tobacco Use Status Never used Tobacco 05/15/23 10:12 e-Cigarette/Vaping Use Never Used 05/15/23 10:12 Thrive Assessment: Date of Thrive Assessment Date Thrive assessed 12/09/22 05/15/23 10:12 Const General: cooperative, comfortable and no acute distress Nutritional Appearance: obese morbidly obese Orientation/consciousness: patient oriented x3 Limitations: ambulation with cane HENMT Mouth: Normal oral and palatal mucosa present and moist mucous membranes Eyes General: appearance normal, both eyes and all related structures Neck Neck: Yes full ROM, Yes no lymphadenopathy and Yes supple Resp Effort & Inspection: normal respiratory effort, able to speak in complete sentences and symmetric chest movement Auscultation: clear to auscultation bilaterally Cardio Other: S1-S2 present regular and rhythm GI Palpation (GI): Soft to palpation, nontender, no guarding and no masses Auscultation: normal bowel sounds Skin General skin exam: no rashes or lesions noted Neuro General: patient oriented x3, moves all extremities, Normal light touch and pain sensation, no focal motor deficits, CN's II-XI intact bilaterally and normal sensation to monofilament Extrem General: Yes full ROM and Yes no joint enlargement Immunizations pneumoc 20-dolores conj-dip cr(PF) 0.5 mL IM syringe Performing Provider: Akanksha Escamilla MD Performing Location: [facility] Administered by: Eufemia Bettencourt CMA on 05/15/23 11:01 Dose Route Admin Location Dispensed Lot Number Expiration Date NDC Public Affairs Manager 0.5 mL IM Right Deltoid 0.5 mL [id number] 07/29/27 8956-0500-18 [email or web address] VIS Given Date VIS Provided VIS Publication Date 05/15/23 Single Vaccine 21 Eligibility Eligibility Date Funding Source Not VFC Eligible 05/15/23 Private Results Reviewed Results Reviewed: SPEC : [id number] SWAPNIL: 05/13/23 STATUS: COMP REQ : [id number] RECD: 05/13/23-[address]: Akanksha Escamilla MD COMP: 05/13/23-0 ENTERED: 05/13/[address]: ORDERED: Met Prof Fast, AST, ALT, Lipid Panel, Vitamin D 25-OH Test Result Flag Reference Site Sodium 142 135-145 mmol/L Potassium 4.4 3.3-5.1 mmol/L CL 108 96-108 mmol/L CO2 26 22-29 mmol/L Gap 12 12-20 BUN 14 9-16 mg/dL Creat 0.75 0.5-1.4 mg/dL EGFR > 60 NOTE: For -[place] individuals, multiply the result by 1.210. Chronic Kidney Disease: Estimated GFR < 60 mL/min/1.73m2 Severe Kidney Disease: Estimated GFR < 15 mL/min/1.73m2 FBS 123 H 60-99 mg/dL A fasting glucose from 100-125 mg/dl is considered impaired (pre-diabetes). CA 9.2 # 8.4-10.2 mg/dL AST (GOT) 26 5-31 U/L ALT (GPT) 28 0-31 U/L Triglyceride 104 mg/dL Desirable Triglyceride: less than 150 mg/dL Borderline High Triglyceride 150-199 mg/dL High Triglyceride: 200-499 mg/dL Very High Triglyceride: greater than or equal to 5OO mg/dL Chol 144 mg/dL Desirable Cholesterol: less than 200 mg/dL Borderline High Cholesterol: 200-239 mg/dL High Cholesterol: greater than 239 mg/dL LDL Calculated 62 mg/dl Desirable LDL: less than 100 mg/dL Near Optimal/Above Optimal LDL: 110-129 mg/dL Borderline High LDL: 130-159 mg/dL High LDL: 160-189 mg/dL Very High LDL: greater than or equal to 190 mg/dL HDL 62 mg/dL Desirable HDL: greater than 40 mg/dL Note: This HDL assay may give artificially low results in patients with liver disease. Vit D 25-OH Tot 40.3 >30 ng/mL Health Based Reference Values* < 20 ng/mL Deficient 20-30 ng/mL Insufficient > 30 ng/mL Sufficient Laboratory Tests 05/08/23 05/13/23 06:11 06:16 Estimat Average Glucose 123 Hemoglobin A1c % 5.9 Urine Creatinine 102.75 Urine Microalbumin 37.0 Microalb/Creat Ratio 36.0 Assessment and Plan Assessment & Plan (1) Diabetes mellitus with microalbuminuria, without long-term current use of insulin: Code(s): E11.29 - Type 2 diabetes mellitus with other diabetic kidney complication; R80.9 - Proteinuria, unspecified Plan: Latest hemoglobin A1c is at 5.6%. Reinforced importance of following healthy diet and staying as active as much as she can. Goes to Dr. Gallego for her routine eye exam (2) Primary hypothyroidism: Comment: ff'd by Dr Carolyn Stiles Code(s): E03.9 - Hypothyroidism, unspecified Plan: Currently on levothyroxine 88 mcg daily, with latest TSH mildly elevated. Patient is currently being followed by Dr. Carolyn Stiles, and states that she will discuss this result with her when she sees her for follow-up (3) Essential hypertension: Code(s): I10 - Essential (primary) hypertension Plan: Blood pressure at goal of less than 130/80. Continue with current medication. Reinforced importance of following a low sodium diet, getting regular exercise, and lowering stress levels. (4) Dyslipidemia: Code(s): E78.5 - Hyperlipidemia, unspecified Plan: Reviewed recent fasting lipid profile with patient with levels within normal limits . Continue with atorvastatin 10 mg daily , in addition to adherence to low-cholesterol diet and regular exercise, at least 30 minutes 3 to 4 times a week. Advised patient to make healthy food choices, eat more fruits, vegetables, whole grains, wild caught fish and low-fat dairy. Limit amount of meat and fried or fatty food products, as well as processed foods and fast foods. Follow-up scheduled with repeat fasting lipid panel in 4 months. (5) Need for pneumococcal 20-valent conjugate vaccination: Code(s): Z23 - Encounter for immunization Plan: Prevnar 20 given today Orders: Orders Lipid Panel 08/29/23 E11. - Type 2 diabetes mellitus with other diabetic kidney complication, R80.9 - Proteinuria, unspecified, I10 - Essential (primary) hypertension, E78.5 - Hyperlipidemia, unspecified Aspartate Amino Transferase 08/29/23. - Type 2 diabetes mellitus with other diabetic kidney complication, R80.9 - Proteinuria, unspecified, I10 - Essential (primary) hypertension, E78.5 - Hyperlipidemia, unspecified Alanine Aminotransferase 08/29/23. - Type 2 diabetes mellitus with other diabetic kidney complication, R80.9 - Proteinuria, unspecified, I10 - Essential (primary) hypertension, E78.5 - Hyperlipidemia, unspecified Basic Metabolic Panel Fasting 08/29/23. - Type 2 diabetes mellitus with other diabetic kidney complication, R80.9 - Proteinuria, unspecified, I10 - Essential (primary) hypertension, E78.5 - Hyperlipidemia, unspecified Hemoglobin A1c 08/29/23 E11. - Type 2 diabetes mellitus with other diabetic kidney complication, R80.9 - Proteinuria, unspecified, I10 - Essential (primary) hypertension, E78.5 - Hyperlipidemia, unspecified Pneumococcal 20 Immunization 05/15/23 Z23 - Encounter for immunization Coding Level of Care Code Est Pt Level 4 (36021) Diagnoses Diabetes mellitus with microalbuminuria, without long-term current use of insulin E11.29; R80.9 Primary hypothyroidism E03.9 Essential hypertension I10 Dyslipidemia E78.5 Need for pneumococcal 20-valent conjugate vaccination Z23 Additional Codes TOM-7 Assessment Billing - TOM-7 Assessment Tool: TOM-7 Assessment 24342 ([id number])
[2023-05-15 10:12] VITALS: BP 112/78; PULSE 70; O2SAT 97
== END 2023-05-15 11:28 | disposition home or self-care (01) ==
PROVIDERS: PCP Internal Medicine; Visit Provider Internal Medicine
DX: E11.29 Type 2 diabetes mellitus with other diabetic kidney complication (principal); R80.9 Proteinuria, unspecified; E03.9 Hypothyroidism, unspecified; I10 Essential (primary) hypertension; E78.5 Hyperlipidemia, unspecified; Z23 Encounter for immunization
CPT/HCPCS: 90471; 90677; 99499

== ENCOUNTER 2023-07-04 07:42 | Outpatient (REF) | payer MEDICARE, SELFPAY | END 2023-07-04 07:43 | disposition home or self-care (01) | LOC: HO.MAMMO 07:42 | PROVIDERS: PCP Internal Medicine; Visit Provider Internal Medicine | DX: Z12.31 Encounter for screening mammogram for malignant neoplasm of breast (principal) | CPT/HCPCS: 77063; 77067 ==

== ENCOUNTER → 2023-07-04 08:00 | Outpatient (BNV) | payer MEDICARE, SELFPAY | PROVIDERS: PCP Internal Medicine; Visit Provider Radiology Diagnostic Radiology | DX: Z12.31 Encounter for screening mammogram for malignant neoplasm of breast (principal) | CPT/HCPCS: 77063; 77067 ==

== ENCOUNTER 2023-07-10 12:44 | Outpatient (REF) | payer MEDICARE, SELFPAY ==
[2023-07-15 09:27] LABS: HPV mRNA E6/E7 rflx Not Detected (Not Detected)
== END 2023-07-10 12:45 | disposition home or self-care (01) ==
LOC: HO.LNP 12:44
PROVIDERS: PCP Internal Medicine; Visit Provider Advanced Practice Midwife
DX: Z01.419 Encounter for gynecological examination (general) (routine) without abnormal findings (principal)
CPT/HCPCS: 87624; 88142

== ENCOUNTER 2023-07-10 12:44 | Outpatient (AMB) | payer MEDICARE, SELFPAY ==
--- NOTE | 2023-07-10 12:49 | MHC.OFFVIS ---
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 Scribed for ROXANA Willis by Lilia Rollins medical billing assistant, on 07/10/2023 at 12:55 pm, EST. Direct Care Specialist: Direct Care Specialist Present (Natty) Allergies metformin Adverse Reaction (Verified 07/10/23 12:50) Diarrhea seasonal Allergy (Unknown, Uncoded 05/15/23 10:38) sneezing, watery itchy eyes HPI HPI Comments History of Present Illness Details She is a postmenopausal woman presenting for annual exam. Tries to eat healthy. Reports getting plenty of Vitamin D and Calcium in her diet. She states she has not been going for walks since her stopped walking. She reports a little itching. She felt this was due to the pads. Prescribed by Dr. Lynn for skin cancer treatment cortisone 2.5 and an anti-fugal medication for the rash. She states she has had lentigo melanoma scattered on the body. (Breast, back, and face.) Denies family hx of breast and ovarian cancer. Father with colon cancer. Last pap smear 01/14/2018 (negative pap and hpv). Last mammogram 07/04/2023. UTD on colonoscopy. She is the primary caregiver for her , who is no longer ambulating. [facility] Medical History Diabetes mellitus with microalbuminuria, without long-term current use of insulin Exertional shortness of breath Chronic fatigue Obesity Sleeps in sitting position due to orthopnea Sleep disturbance Excessive daytime sleepiness Right-sided chest wall pain Right upper quadrant abdominal pain Primary hypothyroidism Osteoarthritis Insomnia Rib pain on right side Osteopenia of left femoral neck Adrenal mass, right Mixed stress and urge urinary incontinence Multinodular goiter (nontoxic) Chronic venous insufficiency of lower extremity Migraine Osteoarthritis, multiple sites Morbid obesity due to excess calories Melanoma Left malleolar fracture RLS (restless legs syndrome) Thyroid nodule Cervical radiculopathy due to degenerative joint disease of spine LEWIS (nonalcoholic steatohepatitis) Type 2 diabetes mellitus without complication, with no history of insulin use Essential hypertension Dyslipidemia Surgical History History of prolapse of bladder Hx of fusion of cervical spine H/O cervical discectomy H/O melanoma excision History of bilateral tubal ligation History of tonsillectomy and adenoidectomy History of bilateral knee replacement Family History Father Colon cancer Skin cancer Prostate cancer Rectal cancer Mother Diabetes mellitus CAD (coronary artery disease) Social History Household Members: Spouse Housing: House Are you a primary career services coordinator to a significant other at home: No Do you presently have visiting nurse or other home services: No Alcohol intake: never Patient Tobacco Use Status: Never used Tobacco e-Cigarette/Vaping Use: Never Used Second Hand Smoke Exposure: No Substance Use Type: Marijuana service: No Current occupational status: retired Sexual orientation: Straight/Heterosexual Gender identity: Female Cognitive needs: No Hearing needs: No Vision needs: Yes Female Reproductive History Menstrual control method: permanent sterilization Permanent Sterilization: BTL Total pregnancies: 4 Full term: 1 Premature: 1 Number of Living Children: 2 Ab spontaneous: 2 Date of last pap smear: 01/14/18 (neg pap and hpv) Date of Mammogram: 07/04/23 Review of Systems Const All systems reviewed & are unremarkable except as noted in HPI and below Reports vaginal pruritus Physical Exam Vital Signs: Last Vital Signs BP 138/76 07/10/23 12:50 BMI result Body Mass Index 48.2 Const General: cooperative, healthy appearing, no acute distress, well developed and alert Orientation/consciousness: patient oriented x3 HEENT Head: Yes normal to inspection Eyes General: appearance normal, both eyes and all related structures Neck Neck: Yes normal visual inspection Thyroid: Thyroid normal Chest Chest palpation & inspection: normal inspection of the chest Breast/axilla inspection: normal inspection of the breasts (no puckering, dimpling, peau de orange, retraction, discharge, masses) Breast/axilla palpation: normal palpation of the breasts Resp Effort & Inspection: normal respiratory effort GI Inspection: Yes obesity Palpation (GI): Soft to palpation Rectal Exam - Female: deferred General: Yes bladder normal to inspection and Yes bladder normal to palpation External Female Exam: normal external appearance and normal appearance of the urethra Speculum Exam - Vagina: normal palpation and vagina atrophic Speculum Exam - Cervix: normal palpation and Other cervical findings present (Bleed slight with pap smear today) Bimanual exam- vagina & uterus: normal bimanual exam, normal palpation, uterine size normal, bladder normal to palpation and normal palpation Bimanual Exam- Adnexa, other: normal adnexae and no masses Skin General skin exam: no rashes or lesions noted Neuro General: patient oriented x3 Cognition (Neuro): normal cognition Extrem General: Yes normal to inspection Psych Attitude: cooperative Thought process: Normal thought process present Assessment & Plan Assessment & Plan (1) Encounter for annual routine gynecological examination: Code(s): Z01.419 - Encounter for gynecological examination (general) (routine) without abnormal findings Plan: Discussed: Current recommendations for pap smears per ASCCP guidelines. Breast awareness and periodic self breast exams. Maintaining a healthy lifestyle including a well balanced diet and routine exercise. All of her questions and concerns were addressed to the best of my ability. She will return in one to two years for AG. Orders: Orders Pap Smear Today Z01.419 - Encounter for gynecological examination (general) (routine) without abnormal findings Coding Level of Care Code Est Pt Prev Care >65y(96416) Diagnoses Encounter for annual routine gynecological examination Z01.419
[2023-07-10 12:50] VITALS: BP 138/76; BMI 48.2
== END 2023-07-10 13:32 | disposition home or self-care (01) ==
PROVIDERS: PCP Internal Medicine; Visit Provider Advanced Practice Midwife
DX: Z01.419 Encounter for gynecological examination (general) (routine) without abnormal findings (principal)
CPT/HCPCS: 99397

== ENCOUNTER → 2023-08-05 07:49 | Outpatient (REF) | payer MEDICARE, SELFPAY ==
--- NOTE | 2023-08-05 07:51 | CA_ITS ---
Transthoracic Echocardiogram Patient (Last, First, Middle): Alecia Eldridge S Gender: Female Date of : 1955 Age: 67 Procedure Date: 08/05/2023 Procedure Type: Transthoracic Echocardiogram Location: OP Height: 162.56 cm Weight: 119.3 kg BSA: 2.20 m2 Heart Rate: 71 bpm BP: 128 / 72 mmHg Problem Manager: MANUELITO/NancyV Referring MD: Thanh Rahman MD Learning And Development Director: Thanh Rahman MD Symptoms: I35.0 - Nonrheumatic aortic (valve) stenosis Study Quality: Fair ECG Rhythm: Sinus Conclusions: - 1. Normal LV ejection fraction of 60-65% with moderate LVH with impaired relaxation filling pattern 2. Increased gradient across aortic valve most likely due to elevated stroke volume of or subaortic obstruction, there is no clear evidence of aortic stenosis. 3. Normal RV systolic pressure 4. No gross pericardial effusion Findings Left Ventricle Normal left ventricular size and systolic function. There is moderately increased left ventricular wall thickness. The visually estimated ejection fraction is between 60-65%. Spectral Doppler is indicative of an impaired relaxation filling pattern. E/E prime ratio is between 8 and 15 consistent with indeterminate filling pressures. Right Ventricle Normal right ventricular cavity size and systolic function. Atria The left atrium is normal in size. There is no evidence of interatrial shunt. The right atrium is normal in size. Aortic Valve The aortic valve structure and function is likely normal. There is mild calcification of the aortic valve. There is no aortic valve stenosis. There is no aortic valve regurgitation. Mitral Valve There is mild anterior and moderate posterior mitral leaflet thickening. There is moderate mitral annular calcification. There is trace mitral valve regurgitation. There is no mitral valve stenosis. Pulmonic Valve The pulmonic valve was not well visualized. Tricuspid Valve Likely normal tricuspid valve structure and function. There is trace tricuspid valve regurgitation. The right ventricular systolic pressure is normal. Normal right atrial pressure. There is no evidence of pulmonary hypertension. Great Vessels All visible segments of the aorta are normal in size. The pulmonary artery was not well visualized. Venous The inferior vena cava is normal in size and collapses greater than 50% with inspiration. Pericardium/Pleural There is no evidence of pericardial effusion. Prior Study Comparison No significant change compared to prior study dated: 04/30/2022. Measurements 2D Linear Measurements IVSd: 1.51 0.6-0.9/0.6-1.0 cm LVIDd: 4.27 3.9-5.3/4.2-5.9 cm LVIDd Index: 1.94 2.4-3.2/2.2-3.1 cm/m2 LVIDs: 2.75 2.0-3.6 cm LVPWd: 1.49 0.7-1.1 cm Ao Root: 3.10 2.1-3.5 cm LA Diam: 4.20 2.7-3.8/3.0-4.0 cm LAIDs Index: 1.91 1.5-2.3 cm/m2 LV Mass: 318.64 67-162/88-224 g LV Mass Index: 144.84 43-95/49-115 g/m2 LVOT Diam: 1.90 3.0+(-)1.3 cm Mitral Valve MV VTI: 0.36 MV Pk Ranjit: 0.99 MV Mn Ranjit: 0.62 MV Pk Grad: 4.00 MV Mn Grad: 2.00 MV Pk E: 0.71 MV PK A: 0.99 MV Decel Time: 248.00 E/A: 0.70 E'Lateral: 6.42 E'Medial: 5.33 E/E' Med: 13.30 E/E' Lat: 11.00 PHT: 73.00 MVA PHT: 3.01 MVA Continuity: 2.04 Decel Coosa: 2.85 Aortic Valve AoV Pk Ranjit: 1.83 AoV Mn Ranjit: 1.23 AoV VTI: 0.43 AoV Pk Grad: 13.00 Aov Mn Grad: 7.00 YONY Cont.VTI: 1.69 LVOT LVOT Pk Ranjit: 1.12 LVOT Mn Ranjit: 0.78 LVOT VTI: 0.26 LVOT Pk Grad: 5.00 LVOT Mn Grad: 3.00 LVOT Diam: 1.90 LVOT Area: 2.84 Diastolic Function MV Pk E: 0.71 MV Pk A: 0.99 E/A: 0.70 E'Medial: 5.33 E/E' Med: 13.30 E' Laterial: 6.42 E/E' Lat: 11.00 Right Ventricle TAPSE (mm): 22.00 TVS' Ranjit: 13.00 Tricuspid Valve TR Pk Ranjit: 2.52 TR Pk Grad: 25.00 RA Press: 3.00 RVSP: 28.00 Great Vessels Aorta Ao Root-2D: 3.10 2.0-3.7 cm Ao Asc: 3.20 2.1-3.4 cm Pulmonary Valve PV Pk Ranjit: 1.15 Peak PV Grad: 5.00 Updated in Other Vendor System with Status of Final Thanh Rahman MD electronically signed on 08/05/2023 12:15:43 PM with status of Final
== END ==
LOC: HO.CARD 07:49
PROVIDERS: PCP Internal Medicine; Visit Provider Internal Medicine Cardiovascular Disease
DX: I35.0 Nonrheumatic aortic (valve) stenosis (principal)
CPT/HCPCS: 93306

== ENCOUNTER → 2023-08-05 07:51 | Outpatient (BNV) | payer MEDICARE, SELFPAY | PROVIDERS: PCP Internal Medicine; Visit Provider Internal Medicine Cardiovascular Disease | DX: I34.81 Nonrheumatic mitral (valve) annulus calcification (principal); I35.8 Other nonrheumatic aortic valve disorders | CPT/HCPCS: 93306 ==

== ENCOUNTER 2023-08-12 08:10 | Outpatient (AMB) | payer MEDICARE, SELFPAY ==
[2023-08-12 08:33] VITALS: BP 134/76; PULSE 71; BMI 49.6
--- NOTE | 2023-08-12 08:33 | MHC.OFFVIS ---
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: No Accompanied by: Family/Other Allergies metformin Adverse Reaction (Verified 08/12/23 08:36) Diarrhea seasonal Allergy (Unknown, Uncoded 08/12/23 08:36) sneezing, watery itchy eyes Medication List - Last Reconciled 08/12/23 by Thanh Rahman MD aspirin (Adult Low Dose Aspirin) 81 mg PO DAILY atorvastatin 10 mg PO DAILY blood sugar diagnostic ([employer] Ultra Blue Test Strip) Check blood sugar twice a day before meals as directed cholecalciferol (vitamin D3) 50 mcg PO DAILY cinnamon bark (Cinnamon) 1,000 mg PO DAILY fexofenadine (Kellen Allergy) 180 mg PO DAILY gabapentin 800 mg PO TID levothyroxine 88 mcg PO QAM lisinopril 10 mg PO DAILY 90 days mecobalamin (vitamin B12) (B12 Active) 1,000 mcg PO DAILY salsalate 750 mg PO BID turmeric 1,000 mg PO DAILY HPI HPI Comments History of Present Illness Details Alecia comes for follow-up. She has been doing very well from cardiac perspective. Denies any significant new symptoms. Complains of transient chest tightness in the right parasternal area. This is not with exertion. Recent echocardiogram shows increased velocities and mild obstruction across the aortic valve. This could represent a subaortic obstruction. Patient denies any exertional chest pain, shortness of breath, orthopnea, PND. Risk factors are well controlled. [facility] Medical History Diabetes mellitus with microalbuminuria, without long-term current use of insulin Exertional shortness of breath Chronic fatigue Obesity Sleeps in sitting position due to orthopnea Sleep disturbance Excessive daytime sleepiness Right-sided chest wall pain Right upper quadrant abdominal pain Primary hypothyroidism Osteoarthritis Insomnia Rib pain on right side Osteopenia of left femoral neck Adrenal mass, right Mixed stress and urge urinary incontinence Multinodular goiter (nontoxic) Chronic venous insufficiency of lower extremity Migraine Osteoarthritis, multiple sites Morbid obesity due to excess calories Melanoma Left malleolar fracture RLS (restless legs syndrome) Thyroid nodule Cervical radiculopathy due to degenerative joint disease of spine LEWIS (nonalcoholic steatohepatitis) Type 2 diabetes mellitus without complication, with no history of insulin use Essential hypertension Dyslipidemia Surgical History History of prolapse of bladder Hx of fusion of cervical spine H/O cervical discectomy H/O melanoma excision History of bilateral tubal ligation History of tonsillectomy and adenoidectomy History of bilateral knee replacement Family History Father Colon cancer Skin cancer Prostate cancer Rectal cancer Mother Diabetes mellitus CAD (coronary artery disease) Social History Household Members: Spouse Housing: House Are you a primary home health care respiratory therapist to a significant other at home: No Do you presently have visiting nurse or other home services: No Alcohol intake: never Patient Tobacco Use Status: Never used Tobacco e-Cigarette/Vaping Use: Never Used Second Hand Smoke Exposure: No Substance Use Type: Marijuana service: No Current occupational status: retired Sexual orientation: Straight/Heterosexual Gender identity: Female Cognitive needs: No Hearing needs: No Vision needs: Yes Review of Systems Const Denies weakness ENT Denies dizziness Card Denies chest pain, Denies chest pain with activity, Denies syncope, Denies rapid heart rate, Denies pedal edema, Denies edema, Denies leg edema, Denies lightheadedness, Denies palpitations, Denies dyspnea, Denies dyspnea on exertion and Denies orthopnea Resp Denies cough, Denies dyspnea and Denies dyspnea on exertion GI Denies hematochezia and Denies change in stool character Musc Denies abnormal gait, Denies muscle cramps, Denies muscle weakness, Denies numbness, Denies radiating pain into limb and Denies tingling Neuro Denies Abnormal speech present, Denies abnormal gait, Denies dizziness, Denies syncope, Denies numbness, Denies tingling and Denies weakness Endo Denies palpitations Physical Exam Vital Signs: Last Vital Signs Pulse 71 08/12/23 08:33 BP 134/76 08/12/23 08:33 BMI result Body Mass Index 49.6 Const General: cooperative, comfortable, no acute distress, alert and awake Nutritional Appearance: obese morbidly obese Orientation/consciousness: patient oriented x3 Limitations: ambulation with cane HEENT Head: Yes normocephalic and Yes atraumatic Neck Neck: Yes trachea midline, Yes supple and Yes no JVD Resp Effort & Inspection: normal respiratory effort Auscultation: clear to auscultation bilaterally Cardio Jugular venous distension: no JVD Palpation: normal PMI Rate: regular rate Rhythm: regular rhythm Heart sounds: S1 normal heart sound present, S2 normal heart sound present, no click, no gallops and Murmur heart sound present systolic early, decrescendo and crescendo GI Auscultation: normal bowel sounds Skin General skin exam: no rashes or lesions noted Neuro General: patient oriented x3 and no focal motor deficits Speech: No Abnormal speech present Extrem General: Yes no clubbing, cyanosis or edema Assessment & Plan Assessment & Plan (1) Left bundle branch block: Code(s): I44.7 - Left bundle-branch block, unspecified Plan: Patient with chronic left bundle-branch block, unchanged with no new symptoms. No interventions required per se for it. Echo every 2 years to assess LV systolic function development of cardiomyopathy. Continue risk factor modification. (2) Aortic stenosis: Code(s): I35.0 - Nonrheumatic aortic (valve) stenosis Plan: Mild obstruction at either aortic course of aortic level. She also has moderate mitral calcification. Multiple risk factors for atherosclerosis. Continue aggressive risk factor modification. Low-dose aspirin therapy for life. Continue statin therapy with target goal LDL less than 70 mg/dL. Blood pressure is currently well optimized. Diabetes under your care. Continue CPAP therapy. Encouraged to continue to participate in physical activity as tolerated and weight loss program. Follow up in the clinic in 2 years time, sooner p.r.n.. Thank you for allowing me to partake in her care Coding Level of Care Code Est Pt Level 4 (39285) Diagnoses Left bundle branch block I44.7 Aortic stenosis I35.0
== END 2023-08-12 08:48 | disposition home or self-care (01) ==
PROVIDERS: Visit Provider Internal Medicine Cardiovascular Disease
DX: I44.7 Left bundle-branch block, unspecified (principal); I35.0 Nonrheumatic aortic (valve) stenosis
CPT/HCPCS: 99214

== ENCOUNTER → 2023-08-12 08:10 | Outpatient (BNVA) | payer MEDICARE, SELFPAY | PROVIDERS: Visit Provider Internal Medicine Cardiovascular Disease | DX: I44.7 Left bundle-branch block, unspecified (principal); I35.0 Nonrheumatic aortic (valve) stenosis | CPT/HCPCS: 99212 ==

== ENCOUNTER 2023-09-13 07:00 | Outpatient (REF) | payer MEDICARE, SELFPAY ==
[2023-09-13 11:13] LABS: Estimated Average Glucose 137 mg/dL; Hemoglobin A1c % 6.4 % (<6.0)
[2023-09-13 11:21] LABS: Alanine Aminotransferase 31 U/L (0-31); Anion Gap 17 (12-20); Aspartate Amino Transferase 28 U/L (5-31); Blood Urea Nitrogen 20 mg/dL (9-16); Calcium 9.3 mg/dL (8.4-10.2); Carbon Dioxide 25 mmol/L (22-29); Chloride 107 mmol/L (96-108); Cholesterol 130 mg/dL (<200); Estimated Glomerular Filt Rate > 60; Glucose Fasting 136 mg/dL (60-99); HDL Cholesterol 58 mg/dL (>40); LDL Cholesterol Calculated 55 mg/dL (<100); Potassium 4.6 mmol/L (3.3-5.1); Sodium 144 mmol/L (135-145); Triglycerides 86 mg/dL (<150)
== END 2023-09-13 07:01 | disposition home or self-care (01) ==
LOC: HO.HMGCLDS 07:00
PROVIDERS: PCP Internal Medicine; Visit Provider Internal Medicine
DX: E11.29 Type 2 diabetes mellitus with other diabetic kidney complication (principal); R80.9 Proteinuria, unspecified; I10 Essential (primary) hypertension; E78.5 Hyperlipidemia, unspecified
CPT/HCPCS: 36415; 80048; 80061; 83036; 84450; 84460

== ENCOUNTER 2023-09-16 11:06 | Outpatient (AMB) | payer MEDICARE, SELFPAY ==
[2023-09-16 12:09] VITALS: BP 140/70; PULSE 69; O2SAT 96; BMI 49.1
--- NOTE | 2023-09-16 12:09 | MHC.PC.OV ---
Vital Signs 09/16/23 12:09 Height 5 ft 4 in Weight 286 lb BMI 49.1 BP 140/70 H Blood Pressure Location Lt brachial Position Sitting Pulse 69 Pulse Source Pulse Oximeter Pulse Oximetry (%) 96 Oxygen Delivery Method Room Air Intake Visit Reasons: 4 month fu Intake Note: Pt is here today for her 4 mo. f/u Allergies metformin Adverse Reaction (Verified 10/23/23 16:27) Diarrhea seasonal Allergy (Unknown, Uncoded 10/23/23 16:27) sneezing, watery itchy eyes Medication List - Last Reconciled 10/23/23 by Akanksha Escamilla MD aspirin (Adult Low Dose Aspirin) 81 mg PO DAILY atorvastatin 10 mg PO DAILY blood sugar diagnostic ([employer] Ultra Blue Test Strip) Check blood sugar twice a day before meals as directed cholecalciferol (vitamin D3) 50 mcg PO DAILY cinnamon bark (Cinnamon) 1,000 mg PO DAILY fexofenadine (Kellen Allergy) 180 mg PO DAILY gabapentin 800 mg PO TID Januvia (sitagliptin phosphate) 100 mg PO DAILY NS levothyroxine 88 mcg PO QAM lisinopril 10 mg PO DAILY 90 days mecobalamin (vitamin B12) (B12 Active) 1,000 mcg PO DAILY salsalate 750 mg PO BID turmeric 1,000 mg PO DAILY Tobacco use date assessed: 09/16/23 Fall risk assessment: 1 Fall in past year Last assessed Fall Risk: 09/16/23 Dental Screening Dental Screen Date: 09/16/23 Did you have a dental visit in the last 12 months?: Yes Did you have a dental problem in the last 6 months where you did not have access to dental care?: No Was dental information given to patient?: Patient has dentist HPI 4 month fu HPI Details 67-year-old lady with hypertension, diabetes mellitus,and hyperlipidemia, here today for her follow-up. She has been doing well, compliant with medications, and diet. Recent fasting labs showed slightly higher hemoglobin A1c as compared to last check, recent fasting lipids are within normal limits. [facility] Medical History (Updated 10/23/23 @ 16:41 by Akanksha Escamilla MD) Diabetes mellitus with microalbuminuria, without long-term current use of insulin Chronic fatigue Obesity Sleeps in sitting position due to orthopnea Excessive daytime sleepiness Primary hypothyroidism Osteoarthritis Insomnia Osteopenia of left femoral neck Adrenal mass, right Mixed stress and urge urinary incontinence Multinodular goiter (nontoxic) Chronic venous insufficiency of lower extremity Migraine Osteoarthritis, multiple sites Morbid obesity due to excess calories Melanoma Left malleolar fracture RLS (restless legs syndrome) Thyroid nodule Cervical radiculopathy due to degenerative joint disease of spine LEWIS (nonalcoholic steatohepatitis) Type 2 diabetes mellitus without complication, with no history of insulin use Essential hypertension Dyslipidemia Surgical History History of prolapse of bladder Hx of fusion of cervical spine H/O cervical discectomy H/O melanoma excision History of bilateral tubal ligation History of tonsillectomy and adenoidectomy History of bilateral knee replacement Family History Father Colon cancer Skin cancer Prostate cancer Rectal cancer Mother Diabetes mellitus CAD (coronary artery disease) Social History Household Members: Spouse Housing: House Are you a primary primary care pediatrician to a significant other at home: No Do you presently have visiting nurse or other home services: No Alcohol intake: never Patient Tobacco Use Status: Never used Tobacco e-Cigarette/Vaping Use: Never Used Second Hand Smoke Exposure: No Substance Use Type: Marijuana service: No Current occupational status: retired Sexual orientation: Straight/Heterosexual Gender identity: Female Cognitive needs: No Hearing needs: No Vision needs: Yes Questionnaire Thrive Questionnaire Date Thrive assessed: 12/09/22 TOM-7 AMB Questionnaire TOM-7 Date TOM - 7 assessed: 12/09/22 Source: Developed by Drs. Antwon Jones, Edie Zhang, Dandre Sharif and colleagues, with an educational bret from [employer]. Review of Systems Const Denies fever(s), Denies headache(s) and Denies weakness ENT Denies dizziness and Denies headache(s) Card Denies chest pain, Denies chest pain with activity, Denies syncope, Denies rapid heart rate, Denies pedal edema, Denies lightheadedness, Denies palpitations, Denies dyspnea and Denies dyspnea on exertion Resp Denies cough, Denies dyspnea and Denies dyspnea on exertion GI Denies hematochezia and Denies change in stool character Reports no additional complaints Musc Denies abnormal gait, Denies muscle cramps, Denies muscle weakness, Denies numbness, Denies radiating pain into limb and Denies tingling Neuro Denies Abnormal speech present, Denies abnormal gait, Denies dizziness, Denies syncope, Denies headache(s), Denies numbness, Denies tingling and Denies weakness Endo Denies palpitations Hardy/Lymph Reports no additional complaints Physical exam (Primary Care) Vital Signs: Last Vital Signs Pulse 69 09/16/23 12:09 BP 140/70 H 09/16/23 12:09 Pulse Ox 96 09/16/23 12:09 Oxygen Delivery Method Room Air 09/16/23 12:09 BMI result Body Mass Index 49.1 BMI Assessment/Plan discussion: High BMI High, discussed plan: lifestyle, weight reduction, dietary and physical activity Tobacco/Smoking Status: Tobacco use Status Tobacco use date assessed 09/16/23 09/16/23 12:14 Patient Tobacco Use Status Never used Tobacco 09/16/23 12:14 e-Cigarette/Vaping Use Never Used 09/16/23 12:14 Thrive Assessment: Date of Thrive Assessment Date Thrive assessed 12/09/22 09/16/23 12:14 Const General: cooperative, comfortable and no acute distress Nutritional Appearance: obese morbidly obese Orientation/consciousness: patient oriented x3 Limitations: ambulation with cane HENMT Mouth: Normal oral and palatal mucosa present and moist mucous membranes Neck Neck: Yes full ROM, Yes no lymphadenopathy and Yes supple Resp Effort & Inspection: normal respiratory effort, able to speak in complete sentences and symmetric chest movement Auscultation: clear to auscultation bilaterally Cardio Other: S1-S2 present regular and rhythm GI Palpation (GI): Soft to palpation, nontender, no guarding and no masses Auscultation: normal bowel sounds Neuro General: patient oriented x3, moves all extremities, Normal light touch and pain sensation, no focal motor deficits, CN's II-XI intact bilaterally and normal sensation to monofilament Speech: No Abnormal speech present Extrem General: Yes full ROM and Yes no joint enlargement Results Reviewed Results Reviewed: Laboratory Tests 05/13/23 09/13/23 06:16 07:07 Estimat Average Glucose 123 137 Hemoglobin A1c % 5.9 6.4 H Name: Alecia Eldridge Age/Sex: 67/F : 1955 Unit#: [id number] Attend Dr: Akanksha Escamilla MD Re09/13/23 Status: DEP [facility] Disch: SPEC : [id number] SWAPNIL: 09/13/23 STATUS: COMP REQ : [id number] RECD: 09/13/[address]: Akanksha Escamilla MD COMP: 09/13/23 ENTERED: 09/13/[address] [facility] [address]: ORDERED: Met Prof Fast, AST, ALT, Lipid Panel Test Result Flag Reference Site Sodium 144 135-145 mmol/L Potassium 4.6 3.3-5.1 mmol/L CL 107 96-108 mmol/L CO2 25 22-29 mmol/L Gap 17 12-20 BUN 20 H 9-16 mg/dL Creat 0.70 0.5-1.4 mg/dL EGFR > 60 NOTE: For -Malian individuals, multiply the result by 1.210. Chronic Kidney Disease: Estimated GFR < 60 mL/min/1.73m2 Severe Kidney Disease: Estimated GFR < 15 mL/min/1.73m2 FBS 136 H 60-99 mg/dL A fasting glucose of 126 mg/dl or greater on more than one occasion is considered diagnostic of diabetes. CA 9.3 8.4-10.2 mg/dL AST (GOT) 28 5-31 U/L ALT (GPT) 31 0-31 U/L Triglyceride 86 <150 mg/dL Desirable Triglyceride: less than 150 mg/dL Borderline High Triglyceride 150-199 mg/dL High Triglyceride: 200-499 mg/dL Very High Triglyceride: greater than or equal to 5OO mg/dL Cholesterol 130 <200 mg/dL Desirable Cholesterol: less than 200 mg/dL Borderline High Cholesterol: 200-239 mg/dL High Cholesterol: greater than 239 mg/dL LDL Calculated 55 <100 mg/dL Desirable LDL: less than 100 mg/dL Near Optimal/Above Optimal LDL: 110-129 mg/dL Borderline High LDL: 130-159 mg/dL High LDL: 160-189 mg/dL Very High LDL: greater than or equal to 190 mg/dL HDL 58 >40 mg/dL Desirable HDL: greater than 40 mg/dL Note: This HDL assay may give artificially low results in patients with liver disease. Assessment and Plan Assessment & Plan (1) Diabetes mellitus with microalbuminuria, without long-term current use of insulin: Code(s): E11.29 - Type 2 diabetes mellitus with other diabetic kidney complication; R80.9 - Proteinuria, unspecified Plan: Has been a slight increase in her A1c, will start on Januvia 100 mg once a day, discussed mechanism of action of medication and possible side effects. It is weight neutral. continue with diet and exercise, recheck another hemoglobin A1c in 3 months (2) Essential hypertension: Code(s): I10 - Essential (primary) hypertension Plan: Blood pressure goal is less than 130/80. Continue lisinopril 10 mg daily. Reinforced importance of following a low sodium diet, getting regular exercise, and lowering stress levels. (3) Dyslipidemia: Code(s): E78.5 - Hyperlipidemia, unspecified Plan: Recent fasting lipids are showed results within normal limits, continued on atorvastatin 10 mg once a day (4) Primary hypothyroidism: Comment: ff'd by Dr Carolyn Stiles Code(s): E03.9 - Hypothyroidism, unspecified Plan: Followed by endocrine, currently on levothyroxine 88 mcg daily in a.m. Orders: Orders Hemoglobin A1c 3 Months . - Type 2 diabetes mellitus with other diabetic kidney complication, R80.9 - Proteinuria, unspecified, I10 - Essential (primary) hypertension, E78.5 - Hyperlipidemia, unspecified Aspartate Amino Transferase 3 Months . - Type 2 diabetes mellitus with other diabetic kidney complication, R80.9 - Proteinuria, unspecified, I10 - Essential (primary) hypertension, E78.5 - Hyperlipidemia, unspecified Microalbumin, Random (w Creat) 3 Months E11. - Type 2 diabetes mellitus with other diabetic kidney complication, R80.9 - Proteinuria, unspecified, I10 - Essential (primary) hypertension, E78.5 - Hyperlipidemia, unspecified Basic Metabolic Panel Fasting 3 Months E11. - Type 2 diabetes mellitus with other diabetic kidney complication, R80.9 - Proteinuria, unspecified, I10 - Essential (primary) hypertension, E78.5 - Hyperlipidemia, unspecified Alanine Aminotransferase 3 Months . - Type 2 diabetes mellitus with other diabetic kidney complication, R80.9 - Proteinuria, unspecified, I10 - Essential (primary) hypertension, E78.5 - Hyperlipidemia, unspecified Lipid Panel 3 Months E11.29 - Type 2 diabetes mellitus with other diabetic kidney complication, R80.9 - Proteinuria, unspecified, I10 - Essential (primary) hypertension, E78.5 - Hyperlipidemia, unspecified Vitamin D 25-OH Total 3 Months E11.29 - Type 2 diabetes mellitus with other diabetic kidney complication, R80.9 - Proteinuria, unspecified, I10 - Essential (primary) hypertension, E78.5 - Hyperlipidemia, unspecified Medications: New Januvia (sitagliptin phosphate) 100 mg PO DAILY 90 tabs 1RF NS Coding Level of Care Code Est Pt Level 4 (05686) Diagnoses Diabetes mellitus with microalbuminuria, without long-term current use of insulin E11.29; R80.9 Essential hypertension I10 Dyslipidemia E78.5 Primary hypothyroidism E03.9
== END 2023-09-16 13:00 | disposition home or self-care (01) ==
PROVIDERS: PCP Internal Medicine; Visit Provider Internal Medicine
DX: E11.29 Type 2 diabetes mellitus with other diabetic kidney complication (principal); R80.9 Proteinuria, unspecified; I10 Essential (primary) hypertension; E78.5 Hyperlipidemia, unspecified; E03.9 Hypothyroidism, unspecified
CPT/HCPCS: 99214

== ENCOUNTER 2023-12-15 07:49 | Outpatient (REF) | payer MEDICARE, SELFPAY ==
[2023-12-15 11:47] LABS: Alanine Aminotransferase 28 U/L (0-31); Anion Gap 12 (12-20); Aspartate Amino Transferase 31 U/L (5-31); Blood Urea Nitrogen 13 mg/dL (9-16); Calcium 9.4 mg/dL (8.4-10.2); Carbon Dioxide 28 mmol/L (22-29); Chloride 106 mmol/L (96-108); Cholesterol 130 mg/dL (<200); Creatinine Urine 98.85 mg/dL; Estimated Glomerular Filt Rate > 60; Glucose Fasting 126 mg/dL (60-99); HDL Cholesterol 57 mg/dL (>40); LDL Cholesterol Calculated 58 mg/dL (<100); Microalbum/Creatinine Ratio Ur 23.2 ug/mg cr (<30); Potassium 4.4 mmol/L (3.3-5.1); Sodium 142 mmol/L (135-145); Triglycerides 76 mg/dL (<150)
[2023-12-15 11:54] LABS: Estimated Average Glucose 137 mg/dL; Hemoglobin A1C 151.5377 umol/L; Hemoglobin A1c % 6.4 % (<6.0)
[2023-12-15 12:04] LABS: Vitamin D 25-OH Total 40.2 ng/mL (>30)
[2023-12-15 12:33] LABS: Folate 7.2 ng/mL (> or = 4.0); Vitamin B12 633 pg/mL (200-900)
== END 2023-12-15 07:50 | disposition home or self-care (01) ==
LOC: HO.HMGCLDS 07:49
PROVIDERS: PCP Internal Medicine; Visit Provider Internal Medicine
DX: E66.01 Morbid (severe) obesity due to excess calories (principal); M85.852 Other specified disorders of bone density and structure, left thigh; E11.29 Type 2 diabetes mellitus with other diabetic kidney complication; I10 Essential (primary) hypertension; E78.5 Hyperlipidemia, unspecified; R80.9 Proteinuria, unspecified; D75.89 Other specified diseases of blood and blood-forming organs
CPT/HCPCS: 36415; 80048; 80061; 82043; 82306; 82570; 82607; 82746; 83036; 84450; 84460

== ENCOUNTER 2023-12-23 07:46 | Outpatient (AMB) | payer MEDICARE, SELFPAY ==
--- NOTE | 2023-12-23 07:52 | MHC.PC.OV ---
Vital Signs 12/23/23 07:56 Height 5 ft 4 in Weight 286 lb BMI 49.1 BP 138/76 Blood Pressure Location Rt brachial Position Sitting Pulse 67 Pulse Source Pulse Oximeter Pulse Oximetry (%) 96 Oxygen Delivery Method Room Air Intake Visit Reasons: Annual Physical Intake Note: Pt is here today for her PE: mammogram 07/04/23, bone density scan 12/25/21,, colonoscopy 07/21/17 Allergies metformin Adverse Reaction (Verified 12/23/23 08:11) Diarrhea seasonal Allergy (Unknown, Uncoded 12/23/23 08:11) sneezing, watery itchy eyes Medication List - Last Reconciled 12/23/23 by Akanksha Escamilla MD aspirin (Adult Low Dose Aspirin) 81 mg PO DAILY atorvastatin 10 mg PO DAILY blood sugar diagnostic ([facility] Ultra Blue Test Strip) Check blood sugar twice a day before meals as directed cholecalciferol (vitamin D3) 50 mcg PO DAILY cinnamon bark (Cinnamon) 1,000 mg PO DAILY fexofenadine (Kellen Allergy) 180 mg PO DAILY gabapentin 800 mg PO TID Januvia (sitagliptin phosphate) 100 mg PO DAILY NS levothyroxine 88 mcg PO QAM lisinopril 10 mg PO DAILY 90 days mecobalamin (vitamin B12) (B12 Active) 1,000 mcg PO DAILY salsalate 750 mg PO BID turmeric 1,000 mg PO DAILY Tobacco use date assessed: 12/23/23 Fall risk assessment: No Falls in past year Last assessed Fall Risk: 12/23/23 Dental Screening Dental Screen Date: 12/23/23 Did you have a dental visit in the last 12 months?: Yes Did you have a dental problem in the last 6 months where you did not have access to dental care?: No Was dental information given to patient?: Patient has dentist HPI Annual Physical HPI Details Lady with hyperlipidemia, hypothyroidism, diabetes mellitus with microalbuminuria, aortic stenosis, obstructive sleep apnea, obesity , osteoarthritis, and chronic venous insufficiency of lower extremities was migraine, here today for her physical exam. She is up-to-date with her screening mammogram done 07/04/23, had a bone density scan 12/25/21 which showed normal bone density in her lumbar spine and left femur but slight bone thinning in left femoral neck., she is up-to-date with her screening colonoscopy last done 07/21/[address] Ross, to be repeated again in 2026. She has been under lot of stress lately taking care of her who is extremely ill, currently in a rehab facility. Has been having difficulty sleeping these past few weeks . Had recent fasting labs done which showed a hemoglobin A1c at 6.4%, fasting lipids, electrolytes, renal function and vitamin-D level are all within normal limits. [facility] Medical History (Updated 12/29/23 @ 02:35 by Akanksha Escamilla MD) Anxiety and depression Type 2 diabetes mellitus without complication, without long-term current use of insulin Chronic fatigue Obesity Sleeps in sitting position due to orthopnea Excessive daytime sleepiness Primary hypothyroidism Insomnia Osteopenia of left femoral neck Adrenal mass, right Mixed stress and urge urinary incontinence Multinodular goiter (nontoxic) Chronic venous insufficiency of lower extremity Migraine Osteoarthritis, multiple sites Morbid obesity due to excess calories Melanoma Left malleolar fracture RLS (restless legs syndrome) Thyroid nodule Cervical radiculopathy due to degenerative joint disease of spine LEWIS (nonalcoholic steatohepatitis) Type 2 diabetes mellitus without complication, with no history of insulin use Essential hypertension Dyslipidemia Surgical History History of prolapse of bladder Hx of fusion of cervical spine H/O cervical discectomy H/O melanoma excision History of bilateral tubal ligation History of tonsillectomy and adenoidectomy History of bilateral knee replacement Family History Father Colon cancer Skin cancer Prostate cancer Rectal cancer Mother Diabetes mellitus CAD (coronary artery disease) Social History Household Members: Spouse Housing: House Are you a primary nurse wound care to a significant other at home: No Do you presently have visiting nurse or other home services: No Alcohol intake: never Patient Tobacco Use Status: Never used Tobacco e-Cigarette/Vaping Use: Never Used Second Hand Smoke Exposure: No Substance Use Type: Marijuana service: No Current occupational status: retired Sexual orientation: Straight/Heterosexual Gender identity: Female Cognitive needs: No Hearing needs: No Vision needs: Yes Questionnaire PHQ-9 Over the last 2 weeks, how often have you been bothered by any of the following problems? 1. Little interest or pleasure in doing things: more than half the days 2. Feeling down, depressed, or hopeless: several days 3. Trouble falling or staying asleep, or sleeping too much: nearly every day 4. Feeling tired or having little energy: more than half the days 5. Poor appetite or overeating: nearly every day 6. Feeling bad about yourself - or that you are a failure or have let yourself or your family down: several days 7. Trouble concentrating on things, such as reading the newspaper or watching television: nearly every day 8. Moving or speaking so slowly that other people could have noticed. Or the opposite - being so fidgety or restless that you have been moving around a lot more than usual: several days 9. Thoughts that you would be better off or of hurting yourself in some way: not at all Total score: 16 Depression Screening Interpretation: Positive (Prescribed trazodone today, but does not want to start any other medications for depression,) Depression Screening Follow-up: Existing condition, New Medication prescribed and Declines treatment (Does not want to seek therapy) Depression Screening Done: Yes Source: Developed by Drs. Antwon Jones, Edie Zhang, Dandre Sharif and colleagues, with an educational bret from [employer]. Thrive Questionnaire Date Thrive assessed: 12/23/23 I am a: Patient What is your living situation today?: I have a steady place to live Within the past 12 months, did the food you bought not last and you didn't have the money to get more?: Never true Within the past 12 months, did you worry whether your food would run out before you got money to buy more?: Never true Do you have trouble paying for medicines?: No Do you have trouble getting transportation to medical appointments?: No Do you have trouble paying your heating and electricity bill?: No Do you have trouble taking care of your child, family member or friend?: No Do you have trouble with day-to-day activities such as bathing, preparing meals, shopping, managing finances, etc.?: No Are you currently unemployed and looking for a job?: No Are you interested in more education?: No THRIVE Score: 0 TOM-7 AMB Questionnaire TOM-7 Date TOM - 7 assessed: 12/23/23 Feeling nervous, anxious, or on edge: 1 = Several days Not being able to stop or control worryin = More than half the days Worrying too much about different things: 1 = Several days Trouble relaxin = More than half the days Being so restless that it is hard to sit still: 2 = More than half the days Becoming easily annoyed or irritable: 1 = Several days Feeling afraid as if something awful might happen: 1 = Several days Total TOM-7 score (0-4 normal; 5-9 mild; 10-14 moderate; 15-21 severe): 10 Source: Developed by Drs. Antwon Jones, Edie Zhang, Dandre Sharif and colleagues, with an educational bret from [employer]. TOM-7 Assessment Billing TOM-7 Assessment Tool: TOM-7 Assessment 48204 Review of Systems Const Reports as per HPI, Denies fever(s), Denies headache(s) and Denies weakness Eyes Denies change in vision ENT Denies dizziness and Denies headache(s) Card Denies chest pain, Denies chest pain with activity, Denies syncope, Denies rapid heart rate, Denies pedal edema, Denies lightheadedness, Denies palpitations, Denies dyspnea and Denies dyspnea on exertion Resp Denies cough, Denies dyspnea and Denies dyspnea on exertion GI Denies hematochezia and Denies change in stool character Reports no additional complaints Musc Denies muscle cramps, Denies muscle weakness, Denies numbness, Denies radiating pain into limb and Denies tingling Skin/Breast Denies breast pain, Denies breast mass and Denies rash Neuro Denies Abnormal speech present, Denies dizziness, Denies syncope, Denies headache(s), Denies numbness, Denies tingling and Denies weakness Psych Reports as per HPI Endo Denies palpitations Hardy/Lymph Reports no additional complaints Aller/Immun Reports no additional complaints Physical exam (Primary Care) Vital Signs: Last Vital Signs Pulse 67 12/23/23 07:56 BP 138/76 12/23/23 07:56 Pulse Ox 96 12/23/23 07:56 Oxygen Delivery Method Room Air 12/23/23 07:56 BMI result Body Mass Index 49.1 BMI Assessment/Plan discussion: High BMI High, discussed plan: lifestyle, weight reduction, dietary and physical activity Tobacco/Smoking Status: Tobacco use Status Tobacco use date assessed 12/23/23 12/23/23 07:57 Patient Tobacco Use Status Never used Tobacco 12/23/23 07:57 e-Cigarette/Vaping Use Never Used 12/23/23 07:57 PHQ-9: PHQ-9 Score PHQ-9: Total score 16 12/24/23 23:54 Depression Screening Interpretation: Positive (Prescribed trazodone today, but does not want to start any other medications for depression,) Depression Screening Follow-up: Existing condition, New Medication prescribed and Declines treatment (Does not want to seek therapy) Thrive Assessment: Date of Thrive Assessment Date Thrive assessed 12/23/23 12/23/23 07:57 Advance Care Planning discussion: On file, no changes Date of discussion: 12/23/23 Forms completed: MOLST Time spent: 1-15 minutes, on File Actual minutes spent: 15 Const General: cooperative, comfortable and no acute distress Nutritional Appearance: obese morbidly obese Orientation/consciousness: patient oriented x3 Limitations: ambulation with cane HENMT Mouth: Normal oral and palatal mucosa present and moist mucous membranes Eyes General: appearance normal, both eyes and all related structures Neck Neck: Yes full ROM, Yes no lymphadenopathy and Yes supple Chest Breast/axilla palpation: normal palpation of the breasts Resp Effort & Inspection: normal respiratory effort, able to speak in complete sentences and symmetric chest movement Auscultation: clear to auscultation bilaterally Cardio Other: S1-S2 present regular and rhythm GI Palpation (GI): Soft to palpation, nontender, no guarding and no masses Auscultation: normal bowel sounds General: Yes no CVA tenderness and Yes deferred (declined exam) Back/Spine/Pelvis Back: no CVA tenderness and No back tenderness Skin General skin exam: no rashes or lesions noted Neuro General: patient oriented x3, moves all extremities, Normal light touch and pain sensation, no focal motor deficits, CN's II-XI intact bilaterally and normal sensation to monofilament Speech: No Abnormal speech present Extrem General: Yes full ROM and Yes no joint enlargement Psych Appearance: grossly normal and well kempt Mental Status: mental status grossly normal Speech and movement: Normal speech and movement present Affect: Anxious affect present Results Reviewed Results Reviewed: Laboratory Tests 12/15/23 07:54 Estimat Average Glucose 137 Hemoglobin A1c % 6.4 H Urine Creatinine 98.85 Urine Microalbumin 23.0 Microalb/Creat Ratio 23.2 Name: Alecia Eldridge Age/Sex: 67/F : 1955 Unit#: [id number] Attend Dr: Akanksha Escamilla MD Re12/15/23 Status: DEP REF Location: [facility] Disch: SPEC : [id number] SWAPNIL: 12/15/23 STATUS: COMP REQ : [id number] RECD: 12/15/23-[address]: Akanksha Escamilla MD COMP: 12/15/23 ENTERED: 12/15/[address]: ORDERED: Met Prof Fast, AST, ALT, Lipid Panel, Vitamin D 25-OH Test Result Flag Reference Sodium 142 135-145 mmol/L Potassium 4.4 3.3-5.1 mmol/L CL 106 96-108 mmol/L CO2 28 22-29 mmol/L Gap 12 12-20 BUN 13 9-16 mg/dL Creat 0.76 0.5-1.4 mg/dL EGFR > 60 NOTE: For -Danish individuals, multiply the result by 1.210. Chronic Kidney Disease: Estimated GFR < 60 mL/min/1.73m2 Severe Kidney Disease: Estimated GFR < 15 mL/min/1.73m2 FBS 126 H 60-99 mg/dL A fasting glucose of 126 mg/dl or greater on more than one occasion is considered diagnostic of diabetes. CA 9.4 8.4-10.2 mg/dL AST (GOT) 31 5-31 U/L ALT (GPT) 28 0-31 U/L Triglyceride 76 <150 mg/dL Desirable Triglyceride: less than 150 mg/dL Borderline High Triglyceride 150-199 mg/dL High Triglyceride: 200-499 mg/dL Very High Triglyceride: greater than or equal to 5OO mg/dL Cholesterol 130 <200 mg/dL Desirable Cholesterol: less than 200 mg/dL Borderline High Cholesterol: 200-239 mg/dL High Cholesterol: greater than 239 mg/dL LDL Calculated 58 <100 mg/dL Desirable LDL: less than 100 mg/dL Near Optimal/Above Optimal LDL: 110-129 mg/dL Borderline High LDL: 130-159 mg/dL High LDL: 160-189 mg/dL Very High LDL: greater than or equal to 190 mg/dL HDL 57 >40 mg/dL Desirable HDL: greater than 40 mg/dL Note: This HDL assay may give artificially low results in patients with liver disease. Vit D 25-OH Tot 40.2 >30 ng/mL Health Based Reference Values* < 20 ng/mL Deficient 20-30 ng/mL Insufficient > 30 ng/mL Sufficient Assessment and Plan Assessment & Plan (1) Annual visit for general adult medical examination with abnormal findings: Code(s): Z00.01 - Encounter for general adult medical examination with abnormal findings Plan: Recent fasting labs reviewed with patient. Recommended dental visit every 6 months and regular eye exams, at least every 2 years. Take adequate calcium in diet and vitamin-D 3 at 2000 IU per cap once a day, in addition to weight-bearing exercises to help maintain good muscle tone and weight control. Instructed to do self-breast exam, and continue with yearly mammogram, ordered a bone density scan to be done together with screening mammogram later this year. Up-to-date with her screening colonoscopy. Up-to-date with all vaccines (2) Osteopenia of left femoral neck: Code(s): M85.852 - Other specified disorders of bone density and structure, left thigh Plan: Encouraged to do regular weight-bearing exercise, continue taking adequate calcium from dietary sources and continue with vitamin-D 3 replacement. Will check another bone density scan later this year together with her screening mammogram (3) Aortic stenosis: Code(s): I35.0 - Nonrheumatic aortic (valve) stenosis Plan: Followed by cardiology. Continue aggressive risk factor modification. Low-dose aspirin therapy for life. Continue atorvastatin with target goal LDL less than 70 mg/dL. Blood pressure is currently well optimized. Continue CPAP therapy. Encouraged to continue to participate in physical activity as tolerated and weight loss program. Continue with maintaining diabetes well controlled (4) ISABELLA (obstructive sleep apnea): Comment: A moderate degree of sleep apnea with increased severity in REM sleep. The total AHI was 14/hr, REM AHI was 33/hr and oxygen prasanna was 72% Code(s): G47.33 - Obstructive sleep apnea (adult) (pediatric) (5) Primary hypothyroidism: Comment: ff'd by Dr Carolyn Stiles Code(s): E03.9 - Hypothyroidism, unspecified Plan: Thyroid are within normal limits, currently followed by endocrine clinic at [facility]. On levothyroxine 88 mcg daily (6) Osteoarthritis: Code(s): M19.90 - Unspecified osteoarthritis, unspecified site Qualifiers: Osteoarthritis location: multiple joints Osteoarthritis type: primary Qualified Code(s): M15.9 - Polyosteoarthritis, unspecified Plan: Takes turmeric supplement and currently on salsalate 750 mg 1 tablet twice a day as needed (7) Insomnia: Code(s): G47.00 - Insomnia, unspecified Qualifiers: Insomnia type: due to other mental disorder Qualified Code(s): F51.05 - Insomnia due to other mental disorder; F99 - Mental disorder, not otherwise specified Plan: Prescription sent for trazodone 50 mg per tablet to take 1 tablet initially at bedtime as needed for insomnia, may increase dose to 75 mg or 1 and half tablets if the lower dose does not help. (8) Mixed stress and urge urinary incontinence: Code(s): N39.46 - Mixed incontinence (9) Morbid obesity due to excess calories: Code(s): E66.01 - Morbid (severe) obesity due to excess calories Plan: Discussed need to increase activity to help with weight loss. Recommended focusing on improving your health instead of dieting. : Eat Mediterranean diet, limit foods high in fat, sugar, and calories, eat slowly, pay attention to portion sizes, plan your meals ahead of time, start regular physical activity 150 minutes of moderate intensity exercise or 90 minutes/week of vigorous exercise and increase water intake. (10) RLS (restless legs syndrome): Code(s): G25.81 - Restless legs syndrome (11) Thyroid nodule: Comment: Followed at [facility] by Dr. Carolyn Stiles Code(s): E04.1 - Nontoxic single thyroid nodule Plan: Followed at [facility] endocrine clinic (12) Type 2 diabetes mellitus without complication, with no history of insulin use: Comment: Followed by Dr. Carolyn Stiles Code(s): E11.9 - Type 2 diabetes mellitus without complications Plan: Followed at [facility] endocrine clinic, diabetes controlled with a hemoglobin A1c at 6.4%, currently on Januvia 100 mg once a day (13) Essential hypertension: Code(s): I10 - Essential (primary) hypertension Plan: Blood pressure goal is less than 130/80. Blood pressure slightly elevated on today's visit likely due to undo stress with constant worry about 's health. Will continue lisinopril 10 mg once a day. Reinforced importance of following a low sodium diet, getting regular exercise, and lowering stress levels. (14) Dyslipidemia: Code(s): E78.5 - Hyperlipidemia, unspecified Plan: Reviewed recent fasting lipid profile with patient with levels within normal limits . Continue with atorvastatin 10 mg daily , in addition to adherence to low-cholesterol diet and regular exercise, at least 30 minutes 3 to 4 times a week. Advised patient to make healthy food choices, eat more fruits, vegetables, whole grains, wild caught fish and low-fat dairy. Limit amount of meat and fried or fatty food products, as well as processed foods and fast foods. Follow-up scheduled with repeat fasting lipid panel in 6 months. (15) Anxiety and depression: Code(s): F41.9 - Anxiety disorder, unspecified; F32.A - Depression, unspecified Plan: Patient does not want to start any maintenance medication, prescription was started today for trazodone 50 mg per tablet to help with sleep, declines referral for therapy. Advised to call us if no improvement of symptoms Orders: Orders Aspartate Amino Transferase 05/30/24 E03.9 - Hypothyroidism, unspecified, E11.9 - Type 2 diabetes mellitus without complications, E66.01 - Morbid (severe) obesity due to excess calories, E78.5 - Hyperlipidemia, unspecified, G25.81 - Restless legs syndrome, G47.33 - Obstructive sleep apnea (adult) (pediatric), I10 - Essential (primary) hypertension, I35.0 - Nonrheumatic aortic (valve) stenosis, M15.9 - Polyosteoarthritis, unspecified, M19.90 - Unspecified osteoarthritis, unspecified site, M85.852 - Other specified disorders of bone density and structure, left thigh, Z00.01 - Encounter for general adult medical examination with abnormal findings Lipid Panel 05/30/24 E03.9 - Hypothyroidism, unspecified, E11.9 - Type 2 diabetes mellitus without complications, E66.01 - Morbid (severe) obesity due to excess calories, E78.5 - Hyperlipidemia, unspecified, G25.81 - Restless legs syndrome, G47.33 - Obstructive sleep apnea (adult) (pediatric), I10 - Essential (primary) hypertension, I35.0 - Nonrheumatic aortic (valve) stenosis, M15.9 - Polyosteoarthritis, unspecified, M19.90 - Unspecified osteoarthritis, unspecified site, M85.852 - Other specified disorders of bone density and structure, left thigh, Z00.01 - Encounter for general adult medical examination with abnormal findings XR DEXA axial skeleton 07/12/24 M85.852 - Other specified disorders of bone density and structure, left thigh, Z78.0 - Asymptomatic menopausal state Hemoglobin A1c 05/30/24 E03.9 - Hypothyroidism, unspecified, E11.9 - Type 2 diabetes mellitus without complications, E66.01 - Morbid (severe) obesity due to excess calories, E78.5 - Hyperlipidemia, unspecified, G25.81 - Restless legs syndrome, G47.33 - Obstructive sleep apnea (adult) (pediatric), I10 - Essential (primary) hypertension, I35.0 - Nonrheumatic aortic (valve) stenosis, M15.9 - Polyosteoarthritis, unspecified, M19.90 - Unspecified osteoarthritis, unspecified site, M85.852 - Other specified disorders of bone density and structure, left thigh, Z00.01 - Encounter for general adult medical examination with abnormal findings Alanine Aminotransferase 05/30/24 E03.9 - Hypothyroidism, unspecified, E11.9 - Type 2 diabetes mellitus without complications, E66.01 - Morbid (severe) obesity due to excess calories, E78.5 - Hyperlipidemia, unspecified, G25.81 - Restless legs syndrome, G47.33 - Obstructive sleep apnea (adult) (pediatric), I10 - Essential (primary) hypertension, I35.0 - Nonrheumatic aortic (valve) stenosis, M15.9 - Polyosteoarthritis, unspecified, M19.90 - Unspecified osteoarthritis, unspecified site, M85.852 - Other specified disorders of bone density and structure, left thigh, Z00.01 - Encounter for general adult medical examination with abnormal findings Basic Metabolic Panel Fasting 05/30/24 E03.9 - Hypothyroidism, unspecified, E11.9 - Type 2 diabetes mellitus without complications, E66.01 - Morbid (severe) obesity due to excess calories, E78.5 - Hyperlipidemia, unspecified, G25.81 - Restless legs syndrome, G47.33 - Obstructive sleep apnea (adult) (pediatric), I10 - Essential (primary) hypertension, I35.0 - Nonrheumatic aortic (valve) stenosis, M15.9 - Polyosteoarthritis, unspecified, M19.90 - Unspecified osteoarthritis, unspecified site, M85.852 - Other specified disorders of bone density and structure, left thigh, Z00.01 - Encounter for general adult medical examination with abnormal findings Vitamin D 25-OH Total 05/30/24 E03.9 - Hypothyroidism, unspecified, E11.9 - Type 2 diabetes mellitus without complications, E66.01 - Morbid (severe) obesity due to excess calories, E78.5 - Hyperlipidemia, unspecified, G25.81 - Restless legs syndrome, G47.33 - Obstructive sleep apnea (adult) (pediatric), I10 - Essential (primary) hypertension, I35.0 - Nonrheumatic aortic (valve) stenosis, M15.9 - Polyosteoarthritis, unspecified, M19.90 - Unspecified osteoarthritis, unspecified site, M85.852 - Other specified disorders of bone density and structure, left thigh, Z00.01 - Encounter for general adult medical examination with abnormal findings Medications: New trazodone 50 mg PO BEDTIME PRN 30 tabs 0RF sleep Coding Level of Care Code Est Pt Prev Care >65y(02369) Diagnoses Annual visit for general adult medical examination with abnormal findings Z00.01 Osteopenia of left femoral neck M85.852 Aortic stenosis I35.0 ISABELLA (obstructive sleep apnea) G47.33 Primary hypothyroidism E03.9 Primary osteoarthritis involving multiple joints M15.9 Osteoarthritis location: multiple joints Osteoarthritis type: primary Insomnia due to other mental disorder F51.05; F99 Insomnia type: due to other mental disorder Mixed stress and urge urinary incontinence N39.46 Morbid obesity due to excess calories E66.01 RLS (restless legs syndrome) G25.81 Thyroid nodule E04.1 Type 2 diabetes mellitus without complication, with no history of insulin use E11.9 Essential hypertension I10 Dyslipidemia E78.5 Anxiety and depression F41.9; F32.A Additional Codes TOM-7 Assessment Billing - TOM-7 Assessment Tool: TOM-7 Assessment 86130 ([id number]) Vital Signs *Quality* - Advance Care Planning discussion: On file, no changes ([id number]) Vital Signs *Quality* - Time spent: 1-15 minutes, on File ([id number])
[2023-12-23 07:56] VITALS: BP 138/76; PULSE 67; O2SAT 96; BMI 49.1
== END 2023-12-23 08:45 | disposition home or self-care (01) ==
PROVIDERS: Visit Provider Internal Medicine
DX: Z00.00 Encounter for general adult medical examination without abnormal findings (principal)
CPT/HCPCS: 1123F; 99397

== ENCOUNTER 2024-06-17 06:56 | Outpatient (REF) | payer MEDICARE, SELFPAY ==
[2024-06-17 10:35] LABS: Estimated Average Glucose 120 mg/dL; Hemoglobin A1C 136.4489 umol/L; Hemoglobin A1c % 5.8 % (<6.0)
[2024-06-17 10:58] LABS: Alanine Aminotransferase 35 U/L (0-31); Anion Gap 10 (12-20); Aspartate Amino Transferase 31 U/L (5-31); Blood Urea Nitrogen 14 mg/dL (9-16); Carbon Dioxide 29 mmol/L (22-29); Chloride 108 mmol/L (96-108); Cholesterol 135 mg/dL (<200); Estimated Glomerular Filt Rate > 60; Glucose Fasting 121 mg/dL (60-99); HDL Cholesterol 52 mg/dL (>40); LDL Cholesterol Calculated 65 mg/dL (<100); Potassium 4.2 mmol/L (3.3-5.1); Sodium 143 mmol/L (135-145); Triglycerides 92 mg/dL (<150); Vitamin D 25-OH Total 35.4 ng/mL (>30)
== END 2024-06-17 06:57 | disposition home or self-care (01) ==
LOC: HO.HMGCLDS 06:56
PROVIDERS: PCP Internal Medicine; Visit Provider Internal Medicine
DX: Z00.01 Encounter for general adult medical examination with abnormal findings (principal); E66.9 Obesity, unspecified; G25.81 Restless legs syndrome; E66.01 Morbid (severe) obesity due to excess calories; M15.9 Polyosteoarthritis, unspecified; E03.9 Hypothyroidism, unspecified; G47.33 Obstructive sleep apnea (adult) (pediatric); I35.0 Nonrheumatic aortic (valve) stenosis; R80.9 Proteinuria, unspecified; E11.29 Type 2 diabetes mellitus with other diabetic kidney complication; E78.5 Hyperlipidemia, unspecified; I10 Essential (primary) hypertension; E11.9 Type 2 diabetes mellitus without complications; M85.852 Other specified disorders of bone density and structure, left thigh
CPT/HCPCS: 36415; 80048; 80061; 82306; 83036; 84450; 84460

== ENCOUNTER 2024-06-22 10:25 | Outpatient (AMB) | payer MEDICARE, SELFPAY ==
[2024-06-22 11:24] VITALS: BP 116/62; PULSE 62; O2SAT 95; BMI 46.7
--- NOTE | 2024-06-22 11:24 | A.OFFPC_ITS ---
Vital Signs 06/22/24 11:24 Height 5 ft 4 in Weight 272 lb BMI 46.7 BP 116/62 Blood Pressure Location Lt brachial Position Sitting Pulse 62 Pulse Source Pulse Oximeter Pulse Oximetry (%) 95 Oxygen Delivery Method Room Air Intake Visit Reasons: 6 month follow up Intake Note: Pt is here today for her 6mo f/u Allergies metformin Adverse Reaction (Verified 06/22/24 11:46) Diarrhea seasonal Allergy (Unknown, Uncoded 06/22/24 11:46) sneezing, watery itchy eyes Medication List - Last Reconciled 06/22/24 by Akanksha Escamilla MD aspirin (Adult Low Dose Aspirin) 81 mg PO DAILY atorvastatin 10 mg PO DAILY blood sugar diagnostic ([employer] Ultra Blue Test Strip) Check blood sugar twice a day before meals as directed cholecalciferol (vitamin D3) 50 mcg PO DAILY cinnamon bark (Cinnamon) 1,000 mg PO DAILY fexofenadine (Kellen Allergy) 180 mg PO DAILY gabapentin 800 mg PO TID levothyroxine 88 mcg PO QAM lisinopril 10 mg PO DAILY 90 days mecobalamin (vitamin B12) (B12 Active) 1,000 mcg PO DAILY Ozempic (semaglutide) 0.25 mg (0.368 mL) subcut QWEEK 3 months NS salsalate 750 mg PO BID turmeric 1,000 mg PO DAILY Tobacco use date assessed: 06/22/24 Fall risk assessment: No Falls in past year Last assessed Fall Risk: 06/22/24 Dental Screening Dental Screen Date: 06/22/24 Did you have a dental visit in the last 12 months?: Yes Did you have a dental problem in the last 6 months where you did not have access to dental care?: No Was dental information given to patient?: Patient has dentist HPI 6 month follow up HPI Details 68 year old lady with history of hyperli pidemia, hypothyroidism, diabetes mellitus with microalbuminuria, aortic stenosis, obstructive sleep apnea, obesity , osteoarthritis, and chronic venous insufficiency of lower extremities was migraine, here today for her follow-up visit. She has been compliant with her medications, has been feeling better, has lost some weight since last visit. [facility] Medical History Anxiety and depression Type 2 diabetes mellitus without complication, without long-term current use of insulin Chronic fatigue Obesity Sleeps in sitting position due to orthopnea Excessive daytime sleepiness Primary hypothyroidism Insomnia Osteopenia of left femoral neck Adrenal mass, right Mixed stress and urge urinary incontinence Multinodular goiter (nontoxic) Chronic venous insufficiency of lower extremity Migraine Osteoarthritis, multiple sites Morbid obesity due to excess calories Melanoma Left malleolar fracture RLS (restless legs syndrome) Thyroid nodule Cervical radiculopathy due to degenerative joint disease of spine LEWIS (nonalcoholic steatohepatitis) Type 2 diabetes mellitus without complication, with no history of insulin use Essential hypertension Dyslipidemia Surgical History History of prolapse of bladder Hx of fusion of cervical spine H/O cervical discectomy H/O melanoma excision History of bilateral tubal ligation History of tonsillectomy and adenoidectomy History of bilateral knee replacement Family History Father Colon cancer Skin cancer Prostate cancer Rectal cancer Mother Diabetes mellitus CAD (coronary artery disease) Social History Household Members: Spouse Housing: House Are you a primary career development consultant to a significant other at home: No Do you presently have visiting nurse or other home services: No Alcohol intake: never Patient Tobacco Use Status: Never used Tobacco e-Cigarette/Vaping Use: Never Used Second Hand Smoke Exposure: No Substance Use Type: Marijuana service: No Current occupational status: retired Sexual orientation: Straight/Heterosexual Gender identity: Female Cognitive needs: No Hearing needs: No Vision needs: Yes Questionnaire PHQ-9 Over the last 2 weeks, how often have you been bothered by any of the following problems? 1. Little interest or pleasure in doing things: several days Source: Developed by Drs. Antwon Jones, Edie Zhang, Dandre Sharif and colleagues, with an educational bret from [employer]. Thrive Questionnaire Date Thrive assessed: 12/23/23 I am a: Patient What is your living situation today?: I have a steady place to live Within the past 12 months, did the food you bought not last and you didn't have the money to get more?: Never true Within the past 12 months, did you worry whether your food would run out before you got money to buy more?: Never true Do you have trouble paying for medicines?: No Do you have trouble getting transportation to medical appointments?: No Do you have trouble paying your heating and electricity bill?: No Do you have trouble with day-to-day activities such as bathing, preparing meals, shopping, managing finances, etc.?: No Are you interested in more education?: No Please select the resources that you would like help with: None Currently or been in a relationship where the following occur: Controlled Emotionally THRIVE Score: 1 AUDIT C Alcohol Use Questionnaire (AUDIT-C) 1. How often do you have a drink containing alcohol?: Never Total Score: 0 TOM-7 AMB Questionnaire TOM-7 Date TOM - 7 assessed: 12/23/23 Feeling nervous, anxious, or on edge: 1 = Several days Not being able to stop or control worryin = Several days Worrying too much about different things: 1 = Several days Trouble relaxin = Several days Being so restless that it is hard to sit still: 1 = Several days Becoming easily annoyed or irritable: 1 = Several days Feeling afraid as if something awful might happen: 1 = Several days Total TOM-7 score (0-4 normal; 5-9 mild; 10-14 moderate; 15-21 severe): 7 Source: Developed by Drs. Antwon Jones, Edie Zhang, Dandre Sharif and colleagues, with an educational bret from [employer]. Review of Systems Const Denies fever(s), Denies headache(s) and Denies weakness Eyes Denies change in vision ENT Denies dizziness and Denies headache(s) Card Denies chest pain, Denies chest pain with activity, Denies syncope, Denies rapid heart rate, Denies pedal edema, Denies lightheadedness, Denies palpitations, Denies dyspnea and Denies dyspnea on exertion Resp Denies cough, Denies dyspnea and Denies dyspnea on exertion GI Denies hematochezia and Denies change in stool character Reports no additional complaints Musc Denies muscle cramps, Denies muscle weakness, Denies numbness, Denies radiating pain into limb and Denies tingling Skin/Breast Denies breast pain, Denies breast mass and Denies rash Neuro Denies Abnormal speech present, Denies dizziness, Denies syncope, Denies headache(s), Denies numbness, Denies tingling and Denies weakness Endo Denies palpitations Hardy/Lymph Reports no additional complaints Aller/Immun Reports no additional complaints Physical exam (Primary Care) Vital Signs: Last Vital Signs Pulse 62 06/22/24 11:24 BP 116/62 06/22/24 11:24 Pulse Ox 95 06/22/24 11:24 Oxygen Delivery Method Room Air 06/22/24 11:24 BMI result Body Mass Index 46.7 BMI Assessment/Plan discussion: High BMI High, discussed plan: lifestyle, weight reduction, dietary and physical activity Tobacco/Smoking Status: Tobacco use Status Tobacco use date assessed 06/22/24 06/22/24 11:32 Patient Tobacco Use Status Never used Tobacco 06/22/24 11:25 e-Cigarette/Vaping Use Never Used 06/22/24 11:25 Thrive Assessment: Date of Thrive Assessment Date Thrive assessed 12/23/23 06/22/24 11:25 Currently or been in a relationship where the following occur: Controlled Emotionally Const General: cooperative, comfortable and no acute distress Nutritional Appearance: obese morbidly obese Orientation/consciousness: patient oriented x3 Limitations: ambulation with cane HENMT Mouth: Normal oral and palatal mucosa present and moist mucous membranes Eyes General: appearance normal, both eyes and all related structures Neck Neck: Yes full ROM, Yes no lymphadenopathy and Yes supple Resp Effort & Inspection: normal respiratory effort, able to speak in complete sentences and symmetric chest movement Auscultation: clear to auscultation bilaterally Cardio Other: S1-S2 present regular and rhythm GI Palpation (GI): Soft to palpation, nontender, no guarding and no masses Auscultation: normal bowel sounds General: Yes no CVA tenderness and Yes deferred (declined exam) Back/Spine/Pelvis Back: no CVA tenderness and No back tenderness Skin General skin exam: no rashes or lesions noted Neuro General: patient oriented x3, moves all extremities, Normal light touch and pain sensation, no focal motor deficits, CN's II-XI intact bilaterally and normal sensation to monofilament Speech: No Abnormal speech present Extrem General: Yes full ROM and Yes no joint enlargement Psych Appearance: grossly normal and well kempt Mental Status: mental status grossly normal Speech and movement: Normal speech and movement present Affect: normal affect Thought process: Normal thought process present Thought content: Normal thought content present Results Reviewed Results Reviewed: Laboratory Tests 12/15/23 06/17/24 07:54 06:59 Estimat Average Glucose 120 Hemoglobin A1c % 5.8 Microalb/Creat Ratio 23.2 Name: Alecia Eldridge Age/Sex: 68/F : 1955 Unit#: [id number] Attend Dr: Akanksha Escamilla MD Re06/17/24 Status: DEP REF Location: [facility] Disch: SPEC : [id number] SWAPNIL: 06/17/24 STATUS: COMP REQ : [id number] RECD: 06/17/24-[address]: Akanksha Escamilla MD COMP: 06/17/24 ENTERED: 06/17/24-[address]: ORDERED: Met Prof Fast, AST, ALT, Lipid Panel, Vitamin D 25-OH Test Result Flag Reference Sodium 143 135-145 mmol/L Potassium 4.2 3.3-5.1 mmol/L CL 108 96-108 mmol/L CO2 29 22-29 mmol/L Gap 10 L 12-20 BUN 14 9-16 mg/dL Creat 0.69 0.5-1.4 mg/dL EGFR > 60 NOTE: For -Micronesian individuals, multiply the result by 1.210. Chronic Kidney Disease: Estimated GFR < 60 mL/min/1.73m2 Severe Kidney Disease: Estimated GFR < 15 mL/min/1.73m2 FBS 121 H 60-99 mg/dL A fasting glucose from 100-125 mg/dl is considered impaired (pre-diabetes). CA 9.0 8.4-10.2 mg/dL AST (GOT) 31 5-31 U/L ALT (GPT) 35 H 0-31 U/L Triglyceride 92 <150 mg/dL Desirable Triglyceride: less than 150 mg/dL Borderline High Triglyceride 150-199 mg/dL High Triglyceride: 200-499 mg/dL Very High Triglyceride: greater than or equal to 5OO mg/dL Cholesterol 135 <200 mg/dL Desirable Cholesterol: less than 200 mg/dL Borderline High Cholesterol: 200-239 mg/dL High Cholesterol: greater than 239 mg/dL LDL Calculated 65 <100 mg/dL Desirable LDL: less than 100 mg/dL Near Optimal/Above Optimal LDL: 110-129 mg/dL Borderline High LDL: 130-159 mg/dL High LDL: 160-189 mg/dL Very High LDL: greater than or equal to 190 mg/dL HDL 52 >40 mg/dL Desirable HDL: greater than 40 mg/dL Note: This HDL assay may give artificially low results in patients with liver disease. Vit D 25-OH Tot 35.4 >30 ng/mL Health Based Reference Values* < 20 ng/mL Deficient 20-30 ng/mL Insufficient > 30 ng/mL Sufficient Assessment and Plan Assessment & Plan (1) Type 2 diabetes mellitus without complication, with no history of insulin use: Comment: Followed by Dr. Carolyn Stiles Code(s): E11.9 - Type 2 diabetes mellitus without complications Plan: Diabetes mellitus well controlled, with hemoglobin A1c at 5.8%. Currently on Ozempic 0.25 mg injected weekly, has been compliant with her diet and tries to stay active. (2) Essential hypertension: Code(s): I10 - Essential (primary) hypertension Plan: Blood pressure at goal of less than 130/80. Continue lisinopril 10 mg daily Reinforced importance of following a low sodium diet, getting regular exercise, and lowering stress levels. (3) Dyslipidemia: Code(s): E78.5 - Hyperlipidemia, unspecified Plan: Reviewed recent fasting lipid profile with patient with levels within normal limits . Continue atorvastatin 10 mg daily , in addition to adherence to low-cholesterol diet and regular exercise, at least 30 minutes 3 to 4 times a week. Advised patient to make healthy food choices, eat more fruits, vegetables, whole grains, wild caught fish and low-fat dairy. Limit amount of meat and fried or fatty food products, as well as processed foods and fast foods. Follow-up scheduled with repeat fasting lipid panel in 7 months. Orders: Orders Alanine Aminotransferase 01/01/25 E11.9 - Type 2 diabetes mellitus without complications, E78.5 - Hyperlipidemia, unspecified, I10 - Essential (primary) hypertension, M85.852 - Other specified disorders of bone density and structure, left thigh Microalbumin, Random (w Creat) 01/01/25 E11.9 - Type 2 diabetes mellitus without complications, E78.5 - Hyperlipidemia, unspecified, I10 - Essential (celio sapna) hypertension, M85.852 - Other specified disorders of bone density and structure, left thigh Hemoglobin A1c 01/01/25 E11.9 - Type 2 diabetes mellitus without complications, E78.5 - Hyperlipidemia, unspecified, I10 - Essential (primary) hypertension, M85.852 - Other specified disorders of bone density and structure, left thigh Lipid Panel 01/01/25 E11.9 - Type 2 diabetes mellitus without complications, E78.5 - Hyperlipidemia, unspecified, I10 - Essential (primary) hypertension, M85.852 - Other specified disorders of bone density and structure, left thigh Basic Metabolic Panel Fasting 01/01/25 E11.9 - Type 2 diabetes mellitus without complications, E78.5 - Hyperlipidemia, unspecified, I10 - Essential (primary) hypertension, M85.852 - Other specified disorders of bone density and structure, left thigh Aspartate Amino Transferase 01/01/25 E11.9 - Type 2 diabetes mellitus without complications, E78.5 - Hyperlipidemia, unspecified, I10 - Essential (primary) hypertension, M85.852 - Other specified disorders of bone density and structure, left thigh Vitamin D 25-OH Total 01/01/25 E11.9 - Type 2 diabetes mellitus without complications, E78.5 - Hyperlipidemia, unspecified, I10 - Essential (primary) hypertension, M85.852 - Other specified disorders of bone density and structure, left thigh Coding Level of Care Code Est Pt Level 4 (14258) Complex EM visit Add On G2211 Diagnoses Type 2 diabetes mellitus without complication, with no history of insulin use E11.9 Essential hypertension I10 Dyslipidemia E78.5
== END 2024-06-22 12:08 | disposition home or self-care (01) ==
PROVIDERS: PCP Internal Medicine; Visit Provider Internal Medicine
DX: E11.9 Type 2 diabetes mellitus without complications (principal); I10 Essential (primary) hypertension; E78.5 Hyperlipidemia, unspecified

== ENCOUNTER → 2024-06-22 10:25 | Outpatient (BNVA) | payer MEDICARE, SELFPAY | PROVIDERS: PCP Internal Medicine; Visit Provider Internal Medicine | DX: E11.9 Type 2 diabetes mellitus without complications (principal); E78.5 Hyperlipidemia, unspecified; I10 Essential (primary) hypertension | CPT/HCPCS: 99212 ==

== ENCOUNTER 2024-07-08 08:39 | Outpatient (REF) | payer MEDICARE, SELFPAY ==
--- NOTE | ~2024-07-08 | MM_ITS ---
EXAMINATION: MM SCREENING DIGITAL BREAST TOMOSYNTHESIS, BILATERAL CLINICAL INFORMATION: Screening. Asymptomatic. COMPARISON: Mammography: Comparison is made with available priors TECHNIQUE: Digital breast mammography with tomosynthesis is performed in both the craniocaudal and mediolateral oblique views along with computer-aided detection (CAD). FINDINGS: There are scattered areas of fibroglandular density (ACR BI-RADS breast composition Category b). There are no significant masses, abnormal calcifications, or other abnormalities. MM/MM tomosynthesis screening BI IMPRESSION: No mammographic evidence of malignancy. ASSESSMENT: BI-RADS BI-RADS 1 - Negative RECOMMENDATION: Routine annual mammography screening. 1 year F/U This examination should not preclude the clinical evaluation of a suspicious palpable abnormality. This patient's information was entered into a reminder system with a target due date for their next mammogram. Electronically signed by: Amita Daley DO 07/20/2024 12:14 PM EDT
--- NOTE | ~2024-07-08 | MM_ITS ---
EXAMINATION: BONE DENSITOMETRY CLINICAL INDICATION: Asymptomatic menopausal state. COMPARISON: Previous BD dated 12/25/2021 and baseline BD dated 09/04/2018. TECHNIQUE: Using a [employer] DXA System (software version: 13.1) manufactured by [employer], dual-energy x-ray absorptiometry was performed of the lumbar spine and left hip. The images are of good technical quality. Summary results are attached. FINDINGS: LEFT FEMUR, NECK: Current: BMD 0.760 g/cm2, Z-score -1.1, T-score -2.0, osteopenia. Prior: BMD 0.774 g/cm2. Baseline: BMD 0.822 g/cm2. LEFT FEMUR, TOTAL: Current: BMD 0.906 g/cm2, Z-score -0.3, T-score -0.8, normal, 1.6% increase from previous, 2.7% decrease from baseline (<5% change is not significant). Prior: BMD 0.892 g/cm2. Baseline: BMD 0.931 g/cm2. AP SPINE L1-L4: Current: BMD 1.310 g/cm2, Z-score 1.6, T-score 1.1, normal, 5.3% increase from previous, 8.8% increase from baseline (<5% change is not significant). Prior: BMD 1.244 g/cm2. Baseline: BMD 1.204 g/cm2. IDENTIFIED RISK FACTORS: Menopause, hysterectomy. HISTORY OF FRACTURE: None listed. MEDICATIONS: Vitamin D. MM/XR DEXA axial skeleton IMPRESSION: 1. DIAGNOSIS: Osteopenia based on the lowest T-score value of -2.0 in the femoral neck applying World Health Organization criteria. 2. 10-YEAR FRACTURE RISK PREDICTION, FRAX: Major osteoporotic fracture (clinical spine, forearm, hip or shoulder) 9.7%. Hip fracture 1.5%. 3. Treatment Recommendations: NOF guidelines recommend consideration for treatment in postmenopausal women and men age 50 and older presenting with the following: -A hip or vertebral (clinical or morphometric) fracture. -T-score less than or equal to -2.5 at the femoral neck or spine after appropriate evaluation to exclude secondary causes. -Low bone mass at the hip or spine and a 10-year fracture probability by FRAX of greater than or equal to 3% for hip fracture or greater than or equal to 20% for major osteoporotic fracture based on the [place] adapted WHO algorithm. 4. Other Recommendations: All treatment decisions require clinical judgment and consideration of individual patient factors, including patient preferences, comorbidities, previous drug use, risk factors not captured in the FRAX model (e.g. frailty, falls, vitamin D deficiency, increased bone turnover, interval significant decline in bone density) and possible under or overestimation of fracture risk by FRAX. Additional medical evaluation for secondary cause of low bone mineral density may be appropriate. FUTURE SCAN RECOMMENDATION: People with diagnosed cases of osteoporosis or at high risk for fracture should have regular bone mineral density tests. For patients eligible for Medicare, routine testing is allowed once every 2 years. The testing frequency can be increased to one year for patients who have rapidly progressing disease, those who are receiving or discontinuing medical therapy to restore bone mass, or have additional risk factors. Electronically signed by: Jackie Marcus MD 07/28/2024 01:10 PM EDT RP
== END 2024-07-08 08:40 | disposition home or self-care (01) ==
LOC: HO.MAMMO 08:39
PROVIDERS: PCP Internal Medicine; Visit Provider Internal Medicine
DX: Z12.31 Encounter for screening mammogram for malignant neoplasm of breast (principal); Z13.820 Encounter for screening for osteoporosis; Z78.0 Asymptomatic menopausal state; M85.852 Other specified disorders of bone density and structure, left thigh
CPT/HCPCS: 77063; 77067; 77080

== ENCOUNTER → 2024-07-08 09:00 | Outpatient (BNV) | payer MEDICARE, SELFPAY | PROVIDERS: PCP Internal Medicine; Visit Provider Internal Medicine | DX: Z12.31 Encounter for screening mammogram for malignant neoplasm of breast (principal) | CPT/HCPCS: 77063; 77067 ==

== ENCOUNTER 2024-11-12 09:36 | Day surgery (SDC) | payer MEDICARE, SELFPAY ==
--- OUTSIDE RECORDS SUMMARY | 2024-09-28 13:22 | XMS_ITS | Continuity of Care Document ---
Author Organization [facility] Address [address] [place] [address] Phone [phone] Care Team Providers Care Media Professional Name Role Phone Akanksha Escamilla Care Team Information Leader Assembler [phone] Problems Active Problems Provider Date Hypothyroidism Carolyn Forte M.D. Ons et: 04/24/2022 Osteoarthritis Carolyn Forte M.D. Ons et: 04/24/2022 Type 2 diabetes mellitus Carolyn Forte M.D. Onset: 04/24/2022 Essential hypertension Ledy Arteaga Onset: 04/24/2022 Vitamin D deficiency Brady Arteaga Onset: 04/24/2022 Malignant melanoma Carolyn Forte M.D. Onset: 04/24/2022 Non-toxic multinodular goiter Carolyn andrea M.D. Onset: 04/24/2022 Adrenal cortical adenoma Carolyn Forte M.D. Onset: 04/24/2022 Migraine Carolyn Forte M.D. Ons et: 04/24/2022 Left bundle branch block Carolyn Forte M.D. Onset: 04/24/2022 Varicose veins of lower extremity Carolyn Garcia M.D. Onset: 04/24/2022 Ankylosing spondylitis Ledy Arteaga Onset: 04/24/2022 Obesity Carolyn Forte M.D. Ons et: 04/24/2022 Cervical radiculopathy Ledy Arteaga Onset: 04/24/2022 Social History Type Date Description Comments Sex Unknown Lives With Spouse Work Status Retired ETOH Use Denies alcohol use Tobacco Use Start: Unknown End: Unknown Patient is a former smoker Allergies and adverse reactions Active Allergies Criticality Reaction Severity Comments Date Metformin Unable to assess criticality Diarrhea 09/30/2023 Inactive Allergies NKDA Unable to assess criticality 04/24/2022 Medications Active Medications SIG Qnty Indications Order ing Provider Date [id number] Tablets Take One Tablet By Mouth Three Times A Day Unknown [id number] Tablets Take One Tablet By Mouth Twice A Day as Needed For Pain Unknown Atorvastatin Vhayoad54en Tablets Take One Tablet By Mouth Every Day Unknown Levothyroxine Itwlkt77fwe Tablets Take One Tablet By Mouth Every Morning Except Take 2 On Sundays Unknown Kbluubthedg9de Tablets Take One Tablet By Mouth AT Bedtime For Insomnia Unknown Albuterol Sulfate PDA240(90Base) mcg/Act Aerosol Jake Shook MD Vitamin B826ruo (2000 Ut) Tablets 1 by mouth every day Carolyn Forte M.D. Tinqrdbsba55kd Tablets 1 by mouth every day 90tabs Carolyn Forte M.D. Aspirin Adult Low Mjvh65wo Tablets DR 1 by mouth every day 100tabs Carolyn Forte M.D. Ttqflgg353zf Tablets 1 by mouth every day 90tabs Akanksha Escamilla Vital Signs Date Vital Result Comment 03/31/2024 9:51am BP Systolic 118 mmHg BP Diastolic 72 mmHg Heart Rate 76 /min Results Test Acquired Date Facility Test Result H/L Range Note Laboratory test finding 03/31/2024 [facility] TSH Rfx on Abnormal to Free T4 2.140 uIU/mL 0.450-4.5 00 Laboratory test finding 03/31/2024 Inhouse Glucose Fingerstick 152 Hemoglobin A1c 6.2% Laboratory test finding 09/30/2023 [facility] TSH With Reflex To FT4 5.85 uIU/mL High (0.4-4.2) Urinary Microalbumin 09/30/2023 [facility] Micro-Albumin 26.0 mg/L High (<20) 1 Malb/Creat Ratio 46.2 MG/GM High (0-20) Urine Creat For Micro Albumin 56.5 mg/dL Laboratory test finding 09/30/2023 [facility] Free T4 1.01 ng/dL (0.70-1.8 0) Laboratory test finding 09/30/2023 Inhouse Glucose Fingerstick 133 Laboratory test finding 04/25/2023 Inhouse Hemoglobin A1c 6.2% Glucose Fingerstick 187 Laboratory test finding 10/25/2022 Inhouse Hemoglobin A1c 5.9% Glucose Fingerstick 201 Laboratory test finding 04/24/2022 Inhouse Glucose Fingerstick 155 1 The urine microalbum in test is designed to monitor renal function. When screening for Bence Cash proteinuria, urine electrophoresis is recommended. Procedures Date Code Description Status 03/31/2024 52282 Collection Of Venous Blood B y Venipuncture Completed 09/30/2023 78044 Collection Of Venous Blood B y Venipuncture Completed Medical Devices Description No Information Available Encounters Type Date Location Provider Dx Diagnosis Office Visit 03/31/2024 8:45a Main Office Carolyn Forte M.D. 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 03/31/2024 E03.9 Hypothyroidism, unspecified Carolyn Forte M.D. 03/31/2024 D35.01 Benign neoplasm of right adr enal gland Carolyn Forte M.D. Plan of Treatment Future Appointment(s):* 10/08/2024 9:00 am - Carolyn Forte M.D. at Main Office 09/30/2023 - Carolyn Forte M.D.* E11.9 Type 2 diabetes mellitus without complications * E03.9 Hypothyroidism, unspecified * D35.01 Benign neoplasm of right adrenal gland * E66.01 Morbid (severe) obesity due to excess calories * Z68.42 Body mass index [BMI] 45.0-49.9, adult Functional Status Description No Information Available Mental Status Description No Information Available Referrals Description No Information Available
[2024-11-10 15:28] VITALS: BMI 42.4
[2024-11-10 16:04] VITALS: BMI 45.5
--- NOTE | 2024-11-11 09:07 | P.CONAN_ITS ---
Documented by User: Eleonora Damon NP 11/11/24 09:10 HPI - Anesthesia Eval Consult details Narrative: 68yo F for Colonoscopy Follows [facility] [place] for LBBB, aortic valve disease Mild obstruction at either aortic course of aortic level. She also has moderate mitral calcification. Stable at 07/2023 office visit for 2 year f/u Anesthesia Pre-Procedure Meds Is the patient on any of the following meds?: GLP1/DPP4 PMFSH Active Problems Active Problems: All Active Problems Positive colorectal cancer screening using Cologuard test (Acute) Left bundle branch block (Acute) Aortic stenosis (Acute) ISABELLA (obstructive sleep apnea) (Acute) Macrocytosis without anemia (Acute) Anxiety and depression (Acute) Primary hypothyroidism (Acute) Insomnia (Acute) Osteopenia of left femoral neck (Acute) Adrenal mass, right (Acute) Mixed stress and urge urinary incontinence (Acute) Chronic venous insufficiency of lower extremity (Acute) Migraine (Acute) Osteoarthritis, multiple sites (Acute) Morbid obesity due to excess calories (Acute) RLS (restless legs syndrome) (Acute) Thyroid nodule (Acute) Cervical radiculopathy due to degenerative joint disease of spine (Acute) Type 2 diabetes mellitus without complication, with no history of insulin use (Acute) Essential hypertension (Acute) Dyslipidemia (Acute) Past Medical History Medical History Ambulates with cane Seasonal allergies Vaginal atrophy Urinary incontinence LBBB (left bundle branch block) Aortic stenosis Hypothyroidism Hx of edema History of skin cancer Anxiety and depression Type 2 diabetes mellitus without complication, without long-term current use of insulin Chronic fatigue Obesity Sleeps in sitting position due to orthopnea Excessive daytime sleepiness Primary hypothyroidism Insomnia Osteopenia of left femoral neck Adrenal mass, right Mixed stress and urge urinary incontinence Multinodular goiter (nontoxic) Chronic venous insufficiency of lower extremity Migraine Osteoarthritis, multiple sites Morbid obesity due to excess calories Melanoma Left malleolar fracture RLS (restless legs syndrome) Thyroid nodule Cervical radiculopathy due to degenerative joint disease of spine LEWIS (nonalcoholic steatohepatitis) Type 2 diabetes mellitus without complication, with no history of insulin use Essential hypertension Dyslipidemia Family History Family History Father Colon cancer Skin cancer Prostate cancer Rectal cancer Mother Diabetes mellitus CAD (coronary artery disease) Surgical History Surgical History History of ankle surgery History of hysteroscopy History of arthroscopy of both knees History of prolapse of bladder Hx of fusion of cervical spine H/O cervical discectomy H/O melanoma excision History of bilateral tubal ligation History of tonsillectomy and adenoidectomy History of bilateral knee replacement Social History Social History Household Members: Spouse Housing: House Are you a primary respiratory care program director to a significant other at home: No Do you presently have visiting nurse or other home services: No Alcohol intake: never Patient Tobacco Use Status: Never used Tobacco e-Cigarette/Vaping Use: Never Used Second Hand Smoke Exposure: No Use of substances other than those prescribed or required for medical reasons: No Substance Use Type: Marijuana Have you been hit, kicked, punched, or otherwise hurt by someone within the past year? If so, by whom?: No Are you DNR?: No Advance Directives: No Advance Directives Information Provided: Yes Advance Directives on File: Yes Advance Directives Date on File: 07/08/24 service: No Current occupational status: retired Sexual orientation: Straight/Heterosexual Gender identity: Female Cognitive needs: No Hearing needs: No Vision needs: Yes Meds Allergies Allergy/AdvReac Type Severity Reaction Status Date / Time metformin AdvReac Diarrhea Verified 11/12/24 10:42 seasonal Allergy Unknown sneezing, Uncoded 06/22/24 11:46 watery itchy eyes Home Medications ?Medication ?Instructions ?Recorded ?Confirmed ?Last Taken ?Type mecobalamin (vitamin B12) 1,000 1,000 mcg PO DAILY 03/15/22 11/10/24 Unknown History mcg chewable tablet (B12 Active) cinnamon bark 500 mg capsule 1,000 mg PO DAILY 05/29/22 11/10/24 Unknown History (Cinnamon) turmeric 400 mg capsule 1,000 mg PO DAILY 05/29/22 11/10/24 11/05/24 History aspirin 81 mg tablet,delayed 81 mg PO DAILY 08/13/22 11/10/24 11/05/24 History release (Adult Low Dose Aspirin) ascorbic acid (vitamin C) 500 mg 500 mg PO DAILY 11/10/24 11/10/24 Unknown History tablet (Vitamin C) coenzyme Q10 400 mg capsule (Co 400 mg PO DAILY 11/10/24 11/10/24 Unknown History Q-10) magnesium chloride 71.5 mg 71.5 mg PO DAILY 11/10/24 11/10/24 Unknown History (magnesium chloride) tablet,delayed release (Slow-Mag) pumpkin seed extract-soy germ 300 cap PO 11/10/24 Unknown History mg capsule (Azo Bladder Control) Exam Height,Weight and Vital Signs: Height 5 ft 4 in Weight 120.202 kg Pertinent Lab Results Pertinent Lab Results: Laboratory Tests 06/17/24 06:59 Sodium 143 Potassium 4.2 Chloride 108 Carbon Dioxide 29 BUN 14 Creatinine 0.69 Narrative Narrative: ECHO 2022 Conclusions: - 1. Normal LV ejection fraction of 60-65% with moderate LVH with impaired relaxation filling pattern 2. Increased gradient across aortic valve most likely due to elevated stroke volume of or subaortic obstruction, there is no clear evidence of aortic stenosis. 3. Normal RV systolic pressure 4. No gross pericardial effusion Assessment and Plan Assessment Anesthesia Assessment: Chart Reviewed Documented by User: Shani Cortes MD 11/12/24 11:16 [facility] Active Problems Active Problems: All Active Problems Positive colorectal cancer screening using Cologuard test (Acute) Left bundle branch block (Acute) Aortic stenosis (Acute) ISABELLA (obstructive sleep apnea) (Acute) Macrocytosis without anemia (Acute) Anxiety and depression (Acute) Primary hypothyroidism (Acute) Insomnia (Acute) Osteopenia of left femoral neck (Acute) Adrenal mass, right (Acute) Mixed stress and urge urinary incontinence (Acute) Chronic venous insufficiency of lower extremity (Acute) Migraine (Acute) Osteoarthritis, multiple sites (Acute) Morbid obesity due to excess calories (Acute) RLS (restless legs syndrome) (Acute) Thyroid nodule (Acute) Cervical radiculopathy due to degenerative joint disease of spine (Acute) Type 2 diabetes mellitus without complication, with no history of insulin use (Acute) Essential hypertension (Acute) Dyslipidemia (Acute) Past Medical History Medical History Ambulates with cane Seasonal allergies Vaginal atrophy Urinary incontinence LBBB (left bundle branch block) Aortic stenosis Hypothyroidism Hx of edema History of skin cancer Anxiety and depression Type 2 diabetes mellitus without complication, without long-term current use of insulin Chronic fatigue Obesity Sleeps in sitting position due to orthopnea Excessive daytime sleepiness Primary hypothyroidism Insomnia Osteopenia of left femoral neck Adrenal mass, right Mixed stress and urge urinary incontinence Multinodular goiter (nontoxic) Chronic venous insufficiency of lower extremity Migraine Osteoarthritis, multiple sites Morbid obesity due to excess calories Melanoma Left malleolar fracture RLS (restless legs syndrome) Thyroid nodule Cervical radiculopathy due to degenerative joint disease of spine LEWIS (nonalcoholic steatohepatitis) Type 2 diabetes mellitus without complication, with no history of insulin use Essential hypertension Dyslipidemia Family History Family History Father Colon cancer Skin cancer Prostate cancer Rectal cancer Mother Diabetes mellitus CAD (coronary artery disease) Surgical History Surgical History History of ankle surgery History of hysteroscopy History of arthroscopy of both knees History of prolapse of bladder Hx of fusion of cervical spine H/O cervical discectomy H/O melanoma excision History of bilateral tubal ligation History of tonsillectomy and adenoidectomy History of bilateral knee replacement History of Problems with Anesthesia: No Social History Social History Household Members: Spouse Housing: House Are you a primary respiratory care program director to a significant other at home: No Do you presently have visiting nurse or other home services: No Alcohol intake: never Patient Tobacco Use Status: Never used Tobacco e-Cigarette/Vaping Use: Never Used Second Hand Smoke Exposure: No Use of substances other than those prescribed or required for medical reasons: No Substance Use Type: Marijuana Have you been hit, kicked, punched, or otherwise hurt by someone within the past year? If so, by whom?: No Are you DNR?: No Advance Directives: No Advance Directives Information Provided: Yes Advance Directives on File: Yes Advance Directives Date on File: 07/08/24 service: No Current occupational status: retired Sexual orientation: Straight/Heterosexual Gender identity: Female Cognitive needs: No Hearing needs: No Vision needs: Yes Meds Allergies Allergy/AdvReac Type Severity Reaction Status Date / Time metformin AdvReac Diarrhea Verified 11/12/24 10:42 seasonal Allergy Unknown sneezing, Uncoded 06/22/24 11:46 watery itchy eyes Home Medications ?Medication ?Instructions ?Recorded ?Confirmed ?Last Taken ?Type mecobalamin (vitamin B12) 1,000 1,000 mcg PO DAILY 03/15/22 11/10/24 Unknown History mcg chewable tablet (B12 Active) cinnamon bark 500 mg capsule 1,000 mg PO DAILY 05/29/22 11/10/24 Unknown History (Cinnamon) turmeric 400 mg capsule 1,000 mg PO DAILY 05/29/22 11/10/24 11/05/24 History aspirin 81 mg tablet,delayed 81 mg PO DAILY 08/13/22 11/10/24 11/05/24 History release (Adult Low Dose Aspirin) ascorbic acid (vitamin C) 500 mg 500 mg PO DAILY 11/10/24 11/10/24 Unknown History tablet (Vitamin C) coenzyme Q10 400 mg capsule (Co 400 mg PO DAILY 11/10/24 11/10/24 Unknown History Q-10) magnesium chloride 71.5 mg 71.5 mg PO DAILY 11/10/24 11/10/24 Unknown History (magnesium chloride) tablet,delayed release (Slow-Mag) pumpkin seed extract-soy germ 300 cap PO 11/10/24 Unknown History mg capsule (Azo Bladder Control) Exam Airway Mallampati Class: III TM Dist: >3cm Neck ROM: Limited Partial: Lower Loose/Missing/Broken Teeth: Yes and Lower Heart: RRR Lungs: CTA Assessment and Plan Assessment Anesthesia Assessment: Anesthesia Plan Discussed Final Anesthetic Review History of Problems with Anesthesia: No NPO: Yes ASA Class: III Final Preanesthetic Review: Meds/Allgs Chart Reviewed, Consent Obtained/Reviewed and Anes Risks/Benef Reviewed Patient Risk: Intermediate Procedure Risk: Low Anesthetic Plan Anesthetic Plan: MAC: Disposition: Standard PACU
[2024-11-12 10:46] VITALS: BMI 45.3
[2024-11-12 10:57] LABS: Glucose, Whole Blood 111 mg/dL (60-115)
[2024-11-12 11:11] VITALS: BP 139/71; PULSE 72; RESP 15; TEMP 35.8; O2SAT 98
[2024-11-12 12:20] VITALS: BP 114/58; PULSE 67; RESP 18; TEMP 36.9; O2SAT 98
--- NOTE | 2024-11-12 12:23 | PM.OP ---
Brief Operative Note Date of Service: 11/12/24 Pre-op diagnosis: + Cologuard Post-op diagnosis: other (Diverticulosis) Procedure: Colonoscopy to the cecum Surgeon: Antwon Ross MD Anesthesia: MAC Was an Grinder Set Up Operator Universal used for this Procedure?: No Estimated blood loss (mL): 0 Pathology: none sent Condition: stable Disposition: PACU
[2024-11-12 12:35] VITALS: BP 123/59; PULSE 63; RESP 18; TEMP 36.5; O2SAT 98
--- NOTE | 2024-11-12 13:03 | OP_ITS ---
DATE OF SERVICE: 11/12/2024 SURGEON: Antwon Ross MD INDICATIONS: The patient presents for evaluation of a positive Cologuard test, as well as family history of colon cancer. Full consent has been obtained from her for this, including risks of bleeding and perforation. PREOPERATIVE DIAGNOSIS: POSTOPERATIVE DIAGNOSIS: PROCEDURE PERFORMED: Colonoscopy to the cecum. ESTIMATED BLOOD LOSS: COMPLICATIONS: ANESTHESIA: Medication used; monitored anesthesia care. ASSISTANTS: SPECIMENS: PREOPERATIVE DIAGNOSES: Positive Cologuard and family history of colon cancer. POSTOPERATIVE DIAGNOSES: Positive Cologuard and family history of colon cancer, diverticulosis, and internal hemorrhoids. DESCRIPTION OF PROCEDURE: The patient was placed in the left lateral decubitus position. The digital rectal exam revealed no abnormalities. The Olympus videopediatric colonoscope was entered into the rectum and advanced into the cecum with the assistance of abdominal wall pressure. Once in the cecum, I did identify normal-appearing cecal pouch with appendiceal orifice and a normal-appearing ileocecal valve. There was transillumination of light deep in the right lower quadrant. The entire cecum and ileocecal valve appeared normal. The scope was slowly withdrawn assessing all mucosal surfaces carefully. Preparation was excellent. I did not visualize any sign of polyps, colitis, nor angiodysplasia. There was a mild amount of sigmoid diverticulosis. In the rectum, the scope was retroflexed visualizing internal hemorrhoids, but no other pathology. The rectal mucosa appeared normal. The scope was straightened and withdrawn from the patient. She tolerated the procedure well and was returned to recovery area in stable condition. IMPRESSION: 1. Diverticulosis. 2. Internal hemorrhoids. PLAN: Given the negative exam and her family history of her father having had colon cancer in his 80s, I would recommend a repeat colonoscopy for further screening in 7 years when she is 75 years old, assuming her health remains stable and would allow the procedure. She will otherwise see me on a p.r.n. basis. MD THERESE Cornejo/LUIS ANTONIO / [phone]
== END 2024-11-12 13:04 | disposition home or self-care (01) ==
PROVIDERS: PCP Internal Medicine; Visit Provider Internal Medicine
PROC: 0DJD8ZZ Inspection of Lower Intestinal Tract, Via Natural or Artificial Opening Endoscopic (ICD-10-PCS; CPT 45378; principal; 2024-11-12 11:00)
DX: R19.5 Other fecal abnormalities (principal); Z80.0 Family history of malignant neoplasm of digestive organs; K57.30 Diverticulosis of large intestine without perforation or abscess without bleeding; K64.8 Other hemorrhoids; I10 Essential (primary) hypertension; I44.7 Left bundle-branch block, unspecified; I35.0 Nonrheumatic aortic (valve) stenosis; E03.9 Hypothyroidism, unspecified; R60.0 Localized edema; Z79.85 Long-term (current) use of injectable non-insulin antidiabetic drugs; Z79.82 Long term (current) use of aspirin; Z79.899 Other long term (current) drug therapy; Z96.653 Presence of artificial knee joint, bilateral; Z98.890 Other specified postprocedural states
CPT/HCPCS: G0105; 82947; J2003; J2704

== ENCOUNTER 2024-12-21 06:40 | Outpatient (REF) | payer MEDICARE, SELFPAY ==
--- OUTSIDE RECORDS SUMMARY | 2024-12-21 06:42 | XMS_ITS ---
Author Organization [facility] Address [address] [place] [address] Care Team Providers Care Sheeter Waxer Operator Name Role Phone Andi GRIMALDO, Akanksha Primary Care Provider Antwon Rajput [facility] [phone] REASON FOR VISIT positive colon cancer screening using cologuard Problems Problem Type SNOMED Code ICD Code Onset Dates Problem Status W/U Status Risk Notes Problem Perforation and abscess of small intestine co-occurrent and due to diverticulitis (disorder) (769581714) Diverticulitis of small intestine with perforation and abscess without bleeding (K57.00) Active confirmed Encounters Encounter Location Date Provider Diagnosis [facility] [place] [address] [place] [address] [phone] 11/12/2024 Antwon Ross Colon cancer scree lillian [...] Progress Notes * KERWIN MATTHEW SDOB:[birth year] (68 yo F)Acc No.[id number]:11/12/2024 COLON WITH MAC Patient:?KERWIN MATTHEW Provider:?Antwon Ross MD :1955???Age:68 Y???Sex:Female D ate:11/12/2024 Address:[address] [place] [address] Pcp:Akanksha Escamilla MD Subjective: * Chief Complaints: * ???1. Positive colon cancer screening using cologuard. * Medical History:? Objective: * Vitals:? Assessment: * Assessment: 1.?Colon cancer screening - Z12.11 (Primary)???2.?Family history of colon cancer - Z80.0???3.?Heme positive stool - R19.5???4.?Diverticulitis of small intestine with perforation and abscess without bleeding - K57.00???5.?Other hemorrhoids - K64.8??? Plan: * Treatment: * Procedure Codes:?G0105 COLOR EC CANCR SCR; COLNSCPY HI RISK, 0529F INTRVL 3+YRS PTS CLNSCP DOCD, 0528F RCMND FLW-UP 10 YRS DOCD, Modifiers: 1P * * The named appointment provid er may or may not be the originator of this progress note, and it is not deemed complete until electronically signed by the appointment provider. Sign off status: Pending * Provider:?Antwon Ross MD Date:? 025 Generated for Marlyn cooley/Ernesto/eTransmitting on:?12/21/2024 06:42 AM EDT
--- OUTSIDE RECORDS SUMMARY | 2024-12-21 06:43 | XMS_ITS | Patient Health Record ---
Author Organization [facility] Address [address] [place] [phone] Care Team Providers Care Curriculum Assistant Name Role Phone Andi GRIMALDO, Akanksha Primary Care Provider Antwon Rajput [phone] Results Component Value Reference Range Notes Glucose, Whole Blood Reviewed date:11/14/2024 03:39:14 PM Interpretation: Performing Lab:[facility], [address] [place] [phone] Notes/Report: Glucose, Whole Blood 111 60-115 mg/dL METER # : [id number] Reason For Referral No Information Medications Medication SIG (Take, Route, Frequency, Duration) Notes Start Date End Date Status Ozempic (0.25 or 0.5 MG/DOSE) Active Salsalate 750 MG 2 tablets with food Orally Twice a day Active Gabapentin 800 MG 1 capsule Orally Onc e a day Active Uro-458 Active Atorvastatin Calcium 10 MG 1 tablet Oral ly Once a day Active Co Q 10 Active Levothyroxine Sodium 88 MCG 1 tablet in the morning on an empty stomach Orally Once a day Active Slow-Mag Active Lisinopril 10 MG 1 tablet Orally Once a day Active Magnesium 27 Active Cinnamon 500 MG 2 capsules Orally daily Active Vitamin D-3 Active Vitamin C 500 MG 1 tablet Orally Once a day Active Aspirin 81 Active Turmeric Curcumin 500 MG 2 Orally QG Active AZO Bladder Control/Go-Less Active Kellen Allergy 180 MG 1 tablet Swallow whole with water; do not take with fruit juices. Orally Once a day Active Immunizations Vaccine Route Administration Date Status Comme nts Influenza Unknown 08/31/2024 Administered Social History Tobacco Use: Social History Observation Description Date Details (start date - stop date) Never Smoker NA - NA Tobacco Use/Smoking Question Answer Notes Patient is a nonsmoker Alcohol Screen Question Answer Notes Did you have a drink containing alcohol in the p ast year? No Points 0 Interpretation Negative Section Notes: Nonsmoker; no sig alcohol Nonsmoker; no sig alcohol Problems Problem Type SNOMED Code ICD Code Onset Dates Problem Status W/U Status Risk Notes Problem 604503781 Encounter for screening for malignant neoplasm of colon (Z12.11) Active confirmed Problem Perforation and abscess of small intestine co-occurrent and due to diverticulitis (disorder) (671863362) Diverticulitis of small intestine with perforation and abscess without bleeding (K57.00) Active confirmed Problem 786061797 Preprocedural examination (Z01.818) Active confirmed Problem Abnormal feces (126624402) Positive colorectal cancer screening using Cologuard test (R19.5) Active confirmed Vital Signs Temperature 96.9 degrees Fahrenheit 09/28/2024 Blood pressure diastolic 01 mm Hg 09/28/2024 Height 66 in 09/28/2024 Blood pressure systolic 001 mm Hg 09/28/2024 Weight 263 lbs 09/28/2024 BMI 42.44 kg/m2 09/28/2024 Encounters Encounter Location Date Provider Diagnosis [facility] [address] [place] [id number] 11/12/2024 Antwon Ross Colon cancer screeni ng Z12.11 ; Family history of colon cancer Z80.0 ; Heme positive stool R19.5 ; Diverticulitis of small intestine with perforation and abscess without bleeding K57.00 and Other hemorrhoids K64.8 [facility] [address] [place] [address] 09/28/2024 Antwon Ross Positive colorectal cancer screening using Cologuard test R19.5 Assessments Encounter Date Diagnosis (ICD Code) Assessment Notes Treatment Notes Treatment Clinical Notes Section Notes 11/12/2024 Colon cancer screening (ICD-10 - Z12.11) 11/12/2024 Family history of colon cancer (ICD-10 - Z80.0) 09/28/2024 Positive colorectal cancer screening using Cologuard test (ICD-10 - R19.5) Stop aspirin, Salsalate, and Turmeric for 1 week before the colonoscopy Do not take Ozempic for at least 7 days before the colonoscopy Need clearance note from Dr. Rahman regarding the aortic stenosis Overall, Kerwin appears well from a GI standpoint. She is not having any particularly new nor worrisome GI complaints. However, given the recent positive Cologuard test, her family history of colorectal cancer in her father, and her last colonoscopy being over 7 years ago, I did recommend a colonoscopy for further evaluation. We did review the rationale for that in regard to colorectal cancer prevention and/or early detection. Full consent was obtained for this, including risks of bleeding and perforation. The procedure will be done with monitored anesthesia care. She was given the below instructions regarding adjustment of her medications for the procedure. Kerwin was comfortable with this plan. Thank you again for allowing me to participate in Kerwin's care. I shall continue to keep you advised of her progress. 11/12/2024 Heme positive stool (ICD-10 - R19.5) 11/12/2024 Diverticulitis of small intestine with perforation and abscess without bleeding (ICD-10 - K57.00) 11/12/2024 Other hemorrhoids (ICD-10 - K64.8) Plan Of Treatment Future Test Test Name Order Date COLONOSCOPY 04/10/2017 COLONOSCOPY 09/28/2024 Insurance Providers Payer Name Payer Address Payer Phone Subscriber Number Group Number Insured Name Patient Relationship to Insured Coverage Start Date Coverage End Date [facility] [address] [place], [place] [id number] KERWIN MATTHEW Self - patient is the insured Medical (General) History Medical History History ICD Code Denies NV,DM,CVA,Lung disease,renal dise ase HTN LE edema Hypothyroidism Negative screening colonosco py in 2005 except for diverticulosis and internal hemorrhoids Aortic stenosis--sees Dr. Rahman Left bundle branch block (LBBB) Negative colonoscopy in 2016 Surgical History Surgery Date(Month/Year) Spine surgery 07/2016--C6 to T1 left knee arthroscopy right knee arthroscopy left knee replacement 2013 right knee replacement 2013 tonsillectomy tubal ligation skin cancer removals Uterine ablation Ankle surgery
--- OUTSIDE RECORDS SUMMARY | 2024-12-21 06:43 | XMS_ITS ---
Author Organization [facility] Address [address] [place] [address] Care Team Providers Care Property Site Manager Name Role Phone Andi GRIMALDO, Akanksha Primary Care Provider Antwon Rajput [phone] REASON FOR VISIT Patient presents today for other fecal abnormalities Medications Medication SIG (Take, Route, Frequency, Duration) Notes Start Date End Date Status Magnesium 27 Active Vitamin D-3 Active Aspirin 81 Active AZO Bladder Control/Go-Less Active Kellen Allergy 180 MG 1 tablet Swallow whole with water; do not take with fruit juices. Orally Once a day Active Uro-458 Active Co Q 10 Active Slow-Mag Active Levothyroxine Sodium 88 MCG 1 tablet in the morning on an empty stomach Orally Once a day Active Lisinopril 10 MG 1 tablet Orally Once a day Active Cinnamon 500 MG 2 capsules Orally daily Active Vitamin C 500 MG 1 tablet Orally Once a day Active Turmeric Curcumin 500 MG 2 Orally QG Active Ozempic (0.25 or 0.5 MG/DOSE) Active Salsalate 750 MG 2 tablets with food Orally Twice a day Active Gabapentin 800 MG 1 capsule Orally Onc e a day Active Atorvastatin Calcium 10 MG 1 tablet Oral ly Once a day Active Social History Tobacco Use: Social History Observation Description Date Details (start date - stop date) Never Smoker NA - NA Tobacco Use/Smoking Question Answer Notes Patient is a nonsmoker Alcohol Screen Question Answer Notes Did you have a drink containing alcohol in the p ast year? No Points 0 Interpretation Negative Section Notes: Nonsmoker; no sig alcohol Problems Problem Type SNOMED Code ICD Code Onset Dates Problem Status W/U Status Risk Notes Problem Abnormal feces (246784637) Positive colorectal cancer screening using Cologuard test (R19.5) Active confirmed Vital Signs Temperature 96.9 degrees Fahrenheit 09/28/20 24 Blood pressure systolic 001 mm Hg 09/28/20 24 Blood pressure diastolic 01 mm Hg 024 Height 66 in 09/28/2024 Weight 263 lbs 09/28/2024 BMI 42.44 kg/m2 09/28/2024 Encounters Encounter Location Date Provider Diagnosis [facility] [address] [place] [address] 09/28/2024 Antwon Ross Positive colorectal cancer screening using Cologuard test R19.5 Assessments Encounter Date Diagnosis (ICD Code) Assessment Notes Treatment Notes Treatment Clinical Notes Section Notes 09/28/2024 Positive colorectal cancer screening using Cologuard [...] to keep you advised of her progress. Plan Of Treatment Treatment Notes Assessment Notes Positive colorectal cancer s creening using Cologuard test Stop aspirin, Salsalate, and Turmeric for 1 week before the colonoscopy Do not take Ozempic for at least 7 days before the colonoscopy Need clearance note from Dr. Rahman regarding the aortic stenosis Future Test Test Name Order Date COLONOSCOPY 09/28/2024 Next Appt Details Follow Up: prn, Reason: Progress Notes * TIFF KERWIN SDOB:[birth year] (68 yo F)Acc No.[id number]:09/28/2024 Progress Notes Patient:KERWIN BRANDON Provider:?Antwon Ross MD :[id number]???Age:68 Y???Sex:Female D ate:09/28/2024 Address:[address] [place] [address] Pcp:Akanksha Escamilla MD Subjective: * Chief Complaints: * ???Patient presents today fo r other fecal abnormalities * HPI: ???incontinence:? I saw Kerwin in the office today for evaluation of a positive Cologuard test and somewhat irregular bowel movements. ?I last saw Kerwin in 2017, at which time she underwent a negative followup screening colonoscopy. She describes her bowel movements have been fairly regular although she has noticed some increased frequency intermittently and somewhat softer bowel movements. However, she has not noticed any hematochezia nor melena. She enjoys a good appetite and denies any significant heartburn or dysphagia. She denies abdominal pain, jaundice, nor unintentional weight loss. Her family history is notable for her father having had colorectal cancer in his 80s. ?As you know, Kerwin did a recent Cologuard test through her insurance company and this came back as positive. * ROS:?General/Constitutional:?Change in appetite?denies.?Chills?denies.?Fatigue?denies.?Ophthalmologic:?Comments?all negative.?ENT:?Comments?all negative.?Respiratory:?hemoptysis?denies.?Cough?denies.?Cardiovascular:?Chest pain?denies.?Orthopnea?denies.?Gastrointestinal:?Comments?See HPI for details.?Genitourinary:?Hematuria?denies.?Dysuria?denies.?Musculoskeletal:?Patient complaining of?Generalized arthritis.?Weakness?denies.?Skin:?Itching?denies.?Rash?denies.?Neurologic:?Headache?denies.?Seizures?denies.?Psychiatric:?Comments?all negative.? * Medical History:? * Surgical History:?Spine surg arpan 07/2016--C6 to T1 left knee arthroscopy right knee arthroscopy left knee replacement 2014right knee replacement 2014tonsillectomy tubal ligation skin cancer removals Uterine ablation Ankle surgery * Hospitalization/Major Diagno stic Procedure:?No Hospitalization History. * Family History:?Father: dece ased, colon/rectal cancer dx in his early 80's, diagnosed with Colon cancer.?Mother: , diagnosed with Heart disease, HTN (hypertension).?Siblings: , diagnosed with Colon polyps.? NO family history of liver cancer. * Social History:?Tobacco Use:?Tobacco Use/Smoking?Patient is a?nonsmoker.?Drugs/Alcohol:?Alcohol Screen?Did you have a drink containing alcohol in the past year??No,?Points?0,?Interpretation?Negative.?Miscellaneous:?Marital status: . Occupation: unemployed/disability. ???Nonsmoker; no sig alcohol. * Medications:?TakingUro-458 C o Q 10 Slow-Mag Magnesium 27 Vitamin D-3 Aspirin 81 AZO Bladder Control/Go-Less Kellen Allergy 180 MG Tablet 1 tablet Swallow whole with water; do not take with fruit juices. Orally Once a dayOzempic (0.25 or 0.5 MG/DOSE) Salsalate 750 MG Tablet 2 tablets with food Orally Twice a dayGabapentin 800 MG Tablet 1 capsule Orally Once a dayAtorvastatin Calcium 10 MG Tablet 1 tablet Orally Once a dayLevothyroxine Sodium 88 MCG Tablet 1 tablet in the morning on an empty stomach Orally Once a dayLisinopril 10 MG Tablet 1 tablet Orally Once a dayCinnamon 500 MG Capsule 2 capsules Orally dailyVitamin C 500 MG Tablet Chewable 1 tablet Orally Once a dayTurmeric Curcumin 500 MG Capsule 2 Orally QGTaking Uro-458 Taking Co Q 10 Taking Slow-Mag Taking Magnesium 27 Taking Vitamin D-3 Taking Aspirin 81 Taking AZO Bladder Control/Go-Less Taking Kellen Allergy 180 MG Tablet 1 tablet Swallow whole with water; do not take with fruit juices. Orally Once a dayTaking Ozempic (0.25 or 0.5 MG/DOSE) Taking Salsalate 750 MG Tablet 2 tablets with food Orally Twice a dayTaking Gabapentin 800 MG Tablet 1 capsule Orally Once a dayTaking Atorvastatin Calcium 10 MG Tablet 1 tablet Orally Once a dayTaking Levothyroxine Sodium 88 MCG Tablet 1 tablet in the morning on an empty stomach Orally Once a dayTaking Lisinopril 10 MG Tablet 1 tablet Orally Once a dayTaking Cinnamon 500 MG Capsule 2 capsules Orally dailyTaking Vitamin C 500 MG Tablet Chewable 1 tablet Orally Once a dayTaking Turmeric Curcumin 500 MG Capsule 2 Orally QGDiscontinuedFurosemide 40 MG Tablet 1 tablet Orally Twice a dayNaproxen 500 MG Tablet Delayed Release 1 tablet Orally Twice a dayDiscontinued Furosemide 40 MG Tablet 1 tablet Orally Twice a dayDiscontinued Naproxen 500 MG Tablet Delayed Release 1 tablet Orally Twice a day Objective: * Vitals:?Wt: 263 lbs, Ht: 66 in, BMI: 42.44 Index, BP: 001/01 mm Hg, Temp: 96.9, Wt-k.29. * Examination: ???General Examination: ?GENERAL APPEARANCE:?pleasant, well nourished, well developed, in no acute distress.?EYES:?sclera non-icteric.?ORAL CAVITY:?mucosa moist.?NECK/THYROID:?no cervical lymphadenopathy, neck supple.?SKIN:?nonjaundiced, no spider angiomata.?HEART:?S1, S2 normal.?LUNGS:?clear to auscultation bilaterally.?ABDOMEN:?normal bowel sounds, no guarding or rigidity, no guarding or rigidity, no masses palpable, soft, nontender, nondistended.?EXTREMITIES:?no edema.?NEUROLOGIC:?alert and oriented.? Assessment: * Assessment: 1.?Positive colorectal cance r screening using Cologuard test - R19.5 (Primary)? Overall, Kerwin appears we ll from a GI standpoint. She is not [...] to keep you advised of her progress. Plan: * Treatment: Notes: Stop aspirin, Salsalate, and Turmeric for 1 week before the colonoscopy Do not take Ozempic for at least 7 days before the colonoscopy Need clearance note from Dr. Rahman regarding the aortic stenosis?? * Procedure Codes:?3017F COLOR ECTAL CA SCREEN DOC [id number] TOBACCO [id number] BP SCR NOT PRFRM REC REASON NOS * Preventive Medicine:? ??Counseling:?Care goal follow-up plan:?Above Normal BMI Follow-up?Giving encouragement to exercise,?BMI management provided?Yes.? ??Urinary Incontinence:?Urinary Incontinence?Assessment:?Present,?Plan of care documented:?Yes,?Type of plan of care:?Lifestyle interventions.? ??Screenings:?Fall Risk Screening?Fall Risk Assessment:?No falls in the past year,?Screening:?No falls in the past year,?Assessment:?Not performed, no reason specified,?Plan of Care:?Not documented, no reason specified.? * Follow Up:?prn * * Sign off status: Completed true * Provider:?Antwon Ross MD Date:? 024 Generated for Marlyn cooley/Ernesto/eTjuan josesmitting on:?12/21/2024 06:42 AM EDT History and Physical Notes * HPI (History of Present Illness) Category Sub-Category Detail Notes Category Not es incontinence I saw Kerwin in the office today for evaluation of a positive Cologuard test and somewhat irregular bowel movements. I last saw Kerwin in 2016, at which time she underwent a negative followup screening colonoscopy. She describes her bowel movements have been fairly regular although she has noticed some increased frequency intermittently and somewhat softer bowel movements. However, she has not noticed any hematochezia nor melena. She enjoys a good appetite and denies any significant heartburn or dysphagia. She denies abdominal pain, jaundice, nor unintentional weight loss. Her family history is notable for her father having had colorectal cancer in his 80s. As you know, Kerwin did a recent Cologuard test through her insurance company and this came back as positive. Examination Category Sub-Category Detail Notes Category Not es General Examination GENERAL APPEARANCE: pleasant , well nourished, well developed, in no acute distress HEAD: EYES: sclera non-icteric EARS: NOSE: THROAT: NECK/THYROID: no cervical lymphade nopathy, neck supple HEART: S1, S2 normal CHEST: LUNGS: clear to auscultatio n bilaterally ABDOMEN: normal bowel sounds, no guarding or rigidity, no guarding or rigidity, no masses palpable, soft, nontender, nondistended NEUROLOGIC: alert and oriented SKIN: nonjaundiced, no spi toya angiomata EXTREMITIES: no edema PERIPHERAL PULSES: BACK: BREASTS: MUSCULOSKELETAL: MALE GENITOURINARY: LYMPH NODES: RECTAL EXAM: FEMALE GENITOURINARY: ORAL CAVITY: mucosa moist
[2024-12-21 11:14] LABS: Estimated Average Glucose 140 mg/dL; Hemoglobin A1C 170.6607 umol/L; Hemoglobin A1c % 6.5 % (<6.0)
[2024-12-21 11:27] LABS: Alanine Aminotransferase 32 U/L (0-31); Anion Gap 13 (12-20); Aspartate Amino Transferase 36 U/L (5-31); Blood Urea Nitrogen 14 mg/dL (9-16); Calcium 9.4 mg/dL (8.4-10.2); Carbon Dioxide 27 mmol/L (22-29); Chloride 109 mmol/L (96-108); Cholesterol 139 mg/dL (<200); Estimated Glomerular Filt Rate > 60; Glucose Fasting 129 mg/dL (60-99); HDL Cholesterol 57 mg/dL (>40); LDL Cholesterol Calculated 60 mg/dL (<100); Potassium 4.5 mmol/L (3.3-5.1); Sodium 144 mmol/L (135-145); Triglycerides 112 mg/dL (<150)
[2024-12-21 11:44] LABS: Creatinine Urine 104.45 mg/dL; Microalbum/Creatinine Ratio Ur 62.2 ug/mg cr (<30)
[2024-12-21 11:45] LABS: Vitamin D 25-OH Total 47.3 ng/mL (>30)
== END 2024-12-21 06:41 | disposition home or self-care (01) ==
LOC: HO.HMGCLDS 06:40
PROVIDERS: PCP Internal Medicine; Visit Provider Internal Medicine
DX: E11.9 Type 2 diabetes mellitus without complications (principal); E78.5 Hyperlipidemia, unspecified; M85.852 Other specified disorders of bone density and structure, left thigh; I10 Essential (primary) hypertension
CPT/HCPCS: 36415; 80048; 80061; 82043; 82306; 82570; 83036; 84450; 84460

== ENCOUNTER 2024-12-30 10:34 | Outpatient (AMB) | payer MEDICARE, SELFPAY ==
--- NOTE | 2024-12-30 10:45 | A.OFFPC_ITS ---
Vital Signs 12/30/24 10:51 Height 5 ft 4 in Weight 264 lb BMI 45.3 BP 96/60 Blood Pressure Location Lt brachial Position Sitting Respiration 17 Pulse 85 Pulse Source Pulse Oximeter Temp 98.1 F Pulse Oximetry (%) 94 Oxygen Delivery Method Room Air Intake Visit Reasons: PE Intake Note: Pt is here today for her PE: Last mammogram 07/08/24, bone density scan 07/08/24, colonoscopy 07/21/17 Allergies metformin Adverse Reaction (Verified 12/30/24 11:28) Diarrhea seasonal Allergy (Unknown, Uncoded 12/30/24 11:28) sneezing, watery itchy eyes Medication List - Last Reconciled 12/30/24 by Akanksha Escamilla MD ascorbic acid (vitamin C) (Vitamin C) 500 mg PO DAILY aspirin (Adult Low Dose Aspirin) 81 mg PO DAILY atorvastatin 10 mg PO DAILY blood sugar diagnostic ([employer] Ultra Blue Test Strip) Check blood sugar twice a day before meals as directed cholecalciferol (vitamin D3) 50 mcg PO DAILY cinnamon bark (Cinnamon) 1,000 mg PO DAILY coenzyme Q10 (Co Q-10) 400 mg PO DAILY fexofenadine (Kellen Allergy) 180 mg PO DAILY gabapentin 800 mg PO TID levothyroxine 88 mcg PO QAM lisinopril 10 mg PO DAILY 90 days magnesium chloride (Slow-Mag) 71.5 mg PO DAILY mecobalamin (vitamin B12) (B12 Active) 1,000 mcg PO DAILY Ozempic (semaglutide) 0.5 mg (0.736 mL) subcut QWEEK 3 months NS pumpkin seed extract-soy germ 300 mg (Azo Bladder Control) caps PO salsalate 750 mg PO BID turmeric 1,000 mg PO DAILY Tobacco use date assessed: 12/30/24 Fall risk assessment: No Falls in past year Last assessed Fall Risk: 12/30/24 Dental Screening Dental Screen Date: 12/30/24 Did you have a dental visit in the last 12 months?: Yes Did you have a dental problem in the last 6 months where you did not have access to dental care?: No Was dental information given to patient?: Patient has dentist HPI PE HPI Details 69 year old lady with history of hyperli pidemia, hypothyroidism, diabetes mellitus with microalbuminuria, aortic stenosis, obstructive sleep apnea, obesity , osteoarthritis, and chronic venous insufficiency of lower extremities was migraine, here today for her physical exam. She is up-to-date with her breast cancer screening, with last mammogram done on 07/08/24, bone density scan 07/08/24 osteopenia left femoral neck and normal in left femur and lumbar spine, up-to-date with her screening colonoscopy done by Dr. Ross on 07/21/17 showing normal results, repeat due again in 2026 [facility] Medical History (Updated 01/09/25 @ 18:26 by Akanksha Escamilla MD) Depression with anxiety Hypothyroidism (acquired) Ambulates with cane Seasonal allergies Vaginal atrophy Urinary incontinence LBBB (left bundle branch block) Aortic stenosis Hypothyroidism Hx of edema History of skin cancer Anxiety and depression Type 2 diabetes mellitus without complication, without long-term current use of insulin Chronic fatigue Obesity Sleeps in sitting position due to orthopnea Excessive daytime sleepiness Primary hypothyroidism Insomnia Osteopenia of left femoral neck Adrenal mass, right Mixed stress and urge urinary incontinence Multinodular goiter (nontoxic) Chronic venous insufficiency of lower extremity Migraine Osteoarthritis, multiple sites Morbid obesity due to excess calories Melanoma Left malleolar fracture RLS (restless legs syndrome) Thyroid nodule Cervical radiculopathy due to degenerative joint disease of spine LEWIS (nonalcoholic steatohepatitis) Type 2 diabetes mellitus without complication, with no history of insulin use Essential hypertension Dyslipidemia Surgical History History of ankle surgery History of hysteroscopy History of arthroscopy of both knees History of prolapse of bladder Hx of fusion of cervical spine H/O cervical discectomy H/O melanoma excision History of bilateral tubal ligation History of tonsillectomy and adenoidectomy History of bilateral knee replacement Family History Father Colon cancer Skin cancer Prostate cancer Rectal cancer Mother Diabetes mellitus CAD (coronary artery disease) Social History Household Members: Spouse Housing: House Are you a primary assisted living care manager to a significant other at home: No Do you presently have visiting nurse or other home services: No Alcohol intake: never Patient Tobacco Use Status: Never used Tobacco e-Cigarette/Vaping Use: Never Used Second Hand Smoke Exposure: No Substance Use Type: Marijuana Advance Directives Date on File: 07/08/24 service: No Current occupational status: retired Sexual orientation: Straight/Heterosexual Gender identity: Female Cognitive needs: No Hearing needs: No Vision needs: Yes Questionnaire PHQ-9 Over the last 2 weeks, how often have you been bothered by any of the following problems? 1. Little interest or pleasure in doing things: more than half the days 2. Feeling down, depressed, or hopeless: more than half the days 3. Trouble falling or staying asleep, or sleeping too much: more than half the days 4. Feeling tired or having little energy: more than half the days 5. Poor appetite or overeating: more than half the days 6. Feeling bad about yourself - or that you are a failure or have let yourself or your family down: several days 7. Trouble concentrating on things, such as reading the newspaper or watching television: several days 8. Moving or speaking so slowly that other people could have noticed. Or the opposite - being so fidgety or restless that you have been moving around a lot more than usual: several days 9. Thoughts that you would be better off or of hurting yourself in some way: not at all Total score: 13 Depression Screening Interpretation: Positive Depression Screening Follow-up: Existing condition, In treatment, New Medication prescribed and Follow-up Visit Requested Depression Screening Done: Yes Source: Developed by Drs. Antwon Jones, Edie Zhang, Dandre Sharif and colleagues, with an educational bret from [employer]. Thrive Questionnaire Date Thrive assessed: 12/23/24 I am a: Patient What is your living situation today?: I have a steady place to live Within the past 12 months, did the food you bought not last and you didn't have the money to get more?: Never true Within the past 12 months, did you worry whether your food would run out before you got money to buy more?: Never true Do you have trouble paying for medicines?: No Do you have trouble getting transportation to medical appointments?: No Do you have trouble paying your heating and electricity bill?: No Do you have trouble taking care of your child, family member or friend?: No Do you have trouble with day-to-day activities such as bathing, preparing meals, shopping, managing finances, etc.?: No Are you currently unemployed and looking for a job?: No Are you interested in more education?: No Please select the resources that you would like help with: None Currently or been in a relationship where the following occur: Controlled Financially and Controlled Emotionally THRIVE Score: 2 AUDIT C Alcohol Use Questionnaire (AUDIT-C) 1. How often do you have a drink containing alcohol?: Never Total Score: 0 TOM-7 AMB Questionnaire TOM-7 Date TOM - 7 assessed: 12/30/24 Feeling nervous, anxious, or on edge: 1 = Several days Not being able to stop or control worryin = More than half the days Worrying too much about different things: 2 = More than half the days Trouble relaxin = More than half the days Being so restless that it is hard to sit still: 2 = More than half the days Becoming easily annoyed or irritable: 2 = More than half the days Feeling afraid as if something awful might happen: 2 = More than half the days Total TOM-7 score (0-4 normal; 5-9 mild; 10-14 moderate; 15-21 severe): 13 Source: Developed by Drs. Antwon Jones, Edie Zhang, Dandre Sharif and colleagues, with an educational bret from [employer]. TOM-7 Assessment Billing TOM-7 Assessment Tool: TOM-7 Assessment 33349 Review of Systems Const Denies fever(s), Denies headache(s) and Denies weakness Eyes Denies change in vision ENT Denies dizziness and Denies headache(s) Card Denies chest pain, Denies chest pain with activity, Denies syncope, Denies rapid heart rate, Denies pedal edema, Denies lightheadedness, Denies palpitations, Denies dyspnea and Denies dyspnea on exertion Resp Denies cough, Denies dyspnea and Denies dyspnea on exertion GI Denies hematochezia and Denies change in stool character Reports no additional complaints Musc Denies muscle cramps, Denies muscle weakness, Denies numbness, Denies radiating pain into limb and Denies tingling Skin/Breast Denies breast pain, Denies breast mass and Denies rash Neuro Denies Abnormal speech present, Denies dizziness, Denies syncope, Denies headache(s), Denies numbness, Denies tingling and Denies weakness Psych Reports as per HPI Endo Denies palpitations Hardy/Lymph Reports no additional complaints Aller/Immun Reports no additional complaints Physical exam (Primary Care) Vital Signs: Last Vital Signs Temp 98.1 F 12/30/24 10:51 Pulse 85 12/30/24 10:51 Resp 17 12/30/24 10:51 BP 96/60 12/30/24 10:51 Pulse Ox 94 12/30/24 10:51 Oxygen Delivery Method Room Air 12/30/24 10:51 BMI result Body Mass Index 45.3 BMI Assessment/Plan discussion: High BMI High, discussed plan: lifestyle, weight reduction, dietary and physical activity Tobacco/Smoking Status: Tobacco use Status Tobacco use date assessed 12/30/24 12/30/24 10:47 Patient Tobacco Use Status Never used Tobacco 12/30/24 10:47 e-Cigarette/Vaping Use Never Used 12/30/24 10:47 PHQ-9: PHQ-9 Score PHQ-9: Total score 13 01/09/25 18:12 Depression Screening Interpretation: Positive Depression Screening Follow-up: Existing condition, In treatment, New Medication prescribed and Follow-up Visit Requested Thrive Assessment: Date of Thrive Assessment Date Thrive assessed 12/23/24 12/30/24 10:47 Currently or been in a relationship where the following occur: Controlled Financially and Controlled Emotionally Advance Care Planning discussion: Completed/Scanned Date of discussion: 12/30/24 Who was present: patient Forms completed: Health Care Proxy Time spent: 16-45 minutes Actual minutes spent: 2 Const General: cooperative, comfortable and no acute distress Nutritional Appearance: obese morbidly obese Orientation/consciousness: patient oriented x3 Limitations: ambulation with cane HENMT Mouth: Normal oral and palatal mucosa present and moist mucous membranes Eyes General: appearance normal, both eyes and all related structures Neck Neck: Yes full ROM, Yes no lymphadenopathy and Yes supple Chest Breast/axilla palpation: normal palpation of the breasts Resp Effort & Inspection: normal respiratory effort, able to speak in complete sentences and symmetric chest movement Auscultation: clear to auscultation bilaterally Cardio Other: S1-S2 present regular and rhythm GI Palpation (GI): Soft to palpation, nontender, no guarding and no masses Auscultation: normal bowel sounds General: Yes no CVA tenderness and Yes deferred (declined exam) Back/Spine/Pelvis Back: no CVA tenderness and No back tenderness Skin General skin exam: no rashes or lesions noted Neuro General: patient oriented x3, moves all extremities, Normal light touch and pain sensation, no focal motor deficits, CN's II-XI intact bilaterally and normal sensation to monofilament Speech: No Abnormal speech present Extrem General: Yes full ROM and Yes no joint enlargement Psych Appearance: grossly normal and well kempt Mental Status: mental status grossly normal Speech and movement: Normal speech and movement present Affect: normal affect Thought process: Normal thought process present Thought content: Normal thought content present Results Reviewed Results Reviewed: Name: Alecia Eldridge Age/Sex: 68/F : 1955 Unit#: [id number] Attend Dr: Akanksha Escamilla MD Re12/21/24 Status: DEP REF Location: [facility] Disch: SPEC : [id number] SWAPNIL: 12/21/24 STATUS: COMP REQ : [id number] RECD: 12/21/[address]: Akanksha Escamilla MD COMP: 12/21/245 ENTERED: 12/21/[address]: ORDERED: Met Prof Fast, AST, ALT, Lipid Panel, Vitamin D 25-OH Test Result Flag Reference Sodium 144 135-145 mmol/L Potassium 4.5 3.3-5.1 mmol/L CL 109 H 96-108 mmol/L CO2 27 22-29 mmol/L Gap 13 12-20 BUN 14 9-16 mg/dL Creat 0.65 0.5-1.4 mg/dL eGFR > 60 Chronic Kidney Disease: Estimated GFR < 60 mL/min/1.73m2 Severe Kidney Disease: Estimated GFR < 15 mL/min/1.73m2 FBS 129 H 60-99 mg/dL A fasting glucose of 126 mg/dl or greater on more than one occasion is considered diagnostic of diabetes. CA 9.4 8.4-10.2 mg/dL AST (GOT) 36 H 5-31 U/L ALT (GPT) 32 H 0-31 U/L Triglyceride 112 <150 mg/dL Desirable Triglyceride: less than 150 mg/dL Borderline High Triglyceride 150-199 mg/dL High Triglyceride: 200-499 mg/dL Very High Triglyceride: greater than or equal to 5OO mg/dL Cholesterol 139 <200 mg/dL Desirable Cholesterol: less than 200 mg/dL Borderline High Cholesterol: 200-239 mg/dL High Cholesterol: greater than 239 mg/dL LDL Calculated 60 <100 mg/dL Desirable LDL: less than 100 mg/dL Near Optimal/Above Optimal LDL: 110-129 mg/dL Borderline High LDL: 130-159 mg/dL High LDL: 160-189 mg/dL Very High LDL: greater than or equal to 190 mg/dL HDL 57 >40 mg/dL Desirable HDL: greater than 40 mg/dL Note: This HDL assay may give artificially low results in patients with liver disease. Vitamin D 25-OH 47.3 >30 ng/mL Health Based Reference Values* < 20 ng/mL Deficient 20-30 ng/mL Insufficient > 30 ng/mL Sufficient *Timur PÉREZ. N Engl J Med. 2007;357:266-280 Laboratory Tests 12/21/24 06:51 Estimat Average Glucose 140 Hemoglobin A1c % 6.5 H Laboratory Tests 12/21/24 06:51 Urine Creatinine 104.45 Urine Microalbumin 65.0 Microalb/Creat Ratio 62.2 H Coding Level of Care Code Est Pt Prev Care >65y(61414) Diagnoses Annual visit for general adult medical examination with abnormal findings Z00.01 Type 2 diabetes mellitus without complication, with no history of insulin use E11.9 Essential hypertension I10 Dyslipidemia E78.5 Cervical radiculopathy due to degenerative joint disease of spine M47.22 Hypothyroidism (acquired) E03.9 Osteoarthritis, multiple sites M15.9 Chronic venous insufficiency of lower extremity I87.2 Morbid obesity due to excess calories E66.01 RLS (restless legs syndrome) G25.81 Thyroid nodule E04.1 Advanced directives, counseling/discussion Z71.89 Depression with anxiety F41.8 Additional Codes TOM-7 Assessment Billing - TOM-7 Assessment Tool: TOM-7 Assessment 74538 ([id number]) Vital Signs *Quality* - Advance Care Planning discussion: Completed/Scanned ([id number]) Vital Signs *Quality* - Time spent: 16-45 minutes ([id number]) Assessment & Plan Assessment & Plan (1) Annual visit for general adult medical examination with abnormal findings: Code(s): Z00.01 - Encounter for general adult medical examination with abnormal findings Plan: Recent fasting lab results reviewed with patient.. Recommended dental visit every 6 months and yearly eye exams. Take adequate calcium in diet and vitamin- D 3 at 2000 IU per cap once a day. . Continue with doing regular breast exams and yearly mammograms, up-to-date with screening mammogram, up-to-date with her bone density scan, due again in 2025, up-to-date with her screening colonoscopy. she is up-to-date with all her weight onoscopy. (2) Type 2 diabetes mellitus without complication, with no history of insulin use: Comment: Followed by Dr. Carolyn Stiles Code(s): E11.9 - Type 2 diabetes mellitus without complications Category: Medical Plan: Followed by endocrine clinic, (3) Essential hypertension: Code(s): I10 - Essential (primary) hypertension Category: Medical Plan: Blood pressure at goal of less than 130/80. Continue lisinopril 10 mg daily. Reinforced importance of following a low sodium diet, getting regular exercise, and lowering stress levels. (4) Dyslipidemia: Code(s): E78.5 - Hyperlipidemia, unspecified Category: Medical Plan: Reviewed recent fasting lipid profile with patient with levels within normal limits . Continue atorvastatin 10 mg daily , in addition to adherence to low-cholesterol diet and regular exercise, at least 30 minutes 3 to 4 times a week. Advised patient to make healthy food choices, eat more fruits, vegetable s, whole grains, wild caught fish and low-fat dairy. Limit amount of meat and fried or fatty food products, as well as processed foods and fast foods. (5) Cervical radiculopathy due to degenerative joint disease of spine: Code(s): M47.22 - Other spondylosis with radiculopathy, cervical region Category: Medical Plan: Currently on gabapentin, takes salsalate as needed (6) Hypothyroidism (acquired): Code(s): E03.9 - Hypothyroidism, unspecified Category: Medical Plan: Followed by Dr. Carolyn smith, currently on levothyroxine (7) Osteoarthritis, multiple sites: Code(s): M15.9 - Polyosteoarthritis, unspecified Category: Medical Plan: Takes salsalate as needed (8) Chronic venous insufficiency of lower extremity: Code(s): I87.2 - Venous insufficiency (chronic) (peripheral) Category: Medical Plan: Continue on aspirin 81 mg daily, elevate legs as much as possible. (9) Morbid obesity due to excess calories: Code(s): E66.01 - Morbid (severe) obesity due to excess calories Category: Medical Plan: Currently on Ozempic 0.5 mg injected subcutaneously once a week (10) RLS (restless legs syndrome): Code(s): G25.81 - Restless legs syndrome Category: Medical Plan: Takes gabapentin 100 mg 1 tablet 3 times a day (11) Thyroid nodule: Comment: Followed at [facility] by Dr. Carolyn Stiles Code(s): E04.1 - Nontoxic single thyroid nodule Category: Medical Plan: Followed by endocrine clinic (12) Advanced directives, counseling/discussion: Code(s): Z71.89 - Other specified counseling Plan: Initiated the conversation about Advanced Directives. Advanced Directives help patients prepare for current and future decisions about their medical treatment and place of care. Discussed with patient that it is a process where a patients current condition and prognosis are reviewed, their wishes for information regarding their illness are elicited, and likely medical dilemmas are presented and options discussed. Healthcare proxy form completed today, already complete MOLST form on previous visits. The form can be amended as needed, reviewed yearly and make changes as needed (13) Depression with anxiety: Code(s): F41.8 - Other specified anxiety disorders Category: Medical Plan: Started on sertraline 50 mg per tablet, advised to initially take half a tablet for the 1st week and then may increase it to full dose of 50 mg thereafter as needed for treatment of anxiety this and mood swings. See her back for a telehealth visit in a month Medications: New sertraline 50 mg PO DAILY 30 tabs 4RF
[2024-12-30 10:51] VITALS: BP 96/60; PULSE 85; RESP 17; TEMP 36.7; O2SAT 94; BMI 45.3
--- OUTSIDE RECORDS SUMMARY | 2024-12-30 11:42 | XMS_ITS ---
Author Organization [facility] Address [address] [place] [address] Care Team Providers Care Crossing Guard Name Role Phone Andi GRIMALDO, Akanksha Primary Care Provider Antwon Rajput [facility] [phone] REASON FOR VISIT positive colon cancer screening using cologuard Problems Problem Type SNOMED Code ICD Code Onset Dates Problem Status W/U Status Risk Notes Problem Perforation and abscess of small intestine co-occurrent and due to diverticulitis (disorder) ([id number]) Diverticulitis of small intestine with perforation and abscess without bleeding (K57.00) Active confirmed Encounters Encounter Location Date Provider Diagnosis [facility] [address] [place] [address] [id number] 11/12/2024 Antwon Ross Colon cancer scree lillian [...] KERWIN MATTHEW [birth year]OB:[birth year] (69 yo F)Acc No.[id number]:11/12/2024 COLON WITH MAC Patient:?KERWIN MATTHEW Provider:?Antwon Ross MD :1955???Age:68 Y???Sex:Female D ate:11/12/2024 Address:[address] [place] [address] Pcp:Akanksha Escamilla MD Subjective: * Chief Complaints: [...] MD Date:? 025 Generated for Marlyn cooley/Ernesto/eTransmitting on:?12/30/2024 11:42 AM EDT
--- OUTSIDE RECORDS SUMMARY | 2024-12-30 11:42 | XMS_ITS | Continuity of Care Document ---
Author Organization [facility] Address [address] [facility] [address] [place] [address] Phone [phone] Care Team Providers Care Bottle Labeler Name Role Phone Akanksha Escamilla Care Team Information Green Jobs Trainer [phone] Problems Active Problems Provider Date Hypothyroidism Carolyn [...] Forte M.D. Ons et: 04/24/2022 Cervical radiculopathy eLdy Arteaga Onset: 04/24/2022 Social History Type Date [...] SIG Qnty Indications Order ing Provider Date [id number] Tablets Take One Tablet By Mouth Three Times A Day Unknown Eqlqlfcka641gd Tablets Take One Tablet By Mouth Twice A Day as Needed For Pain Unknown Atorvastatin Xttlxnw13oj Tablets Take One Tablet By Mouth Every Day Unknown Levothyroxine Panwil59glx Tablets Take One Tablet By Mouth Every Morning Except Take 2 On Sundays Unknown Albuterol Sulfate LAQ152(90Base) mcg/Act Aerosol Jake Shook MD Vitamin N339esz (2000 Ut) Tablets 1 by mouth every day Carolyn Forte M.D. Rzsysagrch67an Tablets 1 by mouth every day 90tabs Carolyn Forte M.D. Aspirin Adult Low Vhet65mi Tablets DR 1 by mouth every day 100tabs Carolyn Forte M.D. Ozempic (0.25 Or 0.5 MG/Dose)2mg/3ML Solution Pen-Inject inject 0.5 mg weekly Akanksha Escamilla Vital Signs Date Vital Result Comment 10/08/2024 9:05am BP Systolic 138 mmHg BP Diastolic 60 mmHg Heart Rate 82 /min Height 65 inches 5'5 Weight 267.25 lb BMI (Body Mass Index) 44.5 kg/m2 Results Test Acquired Date Facility Test Result H/L Range Note TSH Rfx on Abnormal to Free T4 10/08/2024 [facility] TSH Rfx on Abnormal to Free T4 4.370 uIU/mL 0.450-4.5 00 Glucose Fingerstick 10/08/2024 Inhouse Glucose Fingerstick 164 Hemoglobin A1c 10/08/2024 Inhouse Hemoglobin A1c 6.2% TSH Rfx on Abnormal to Free T4 03/31/2024 [facility] TSH Rfx on Abnormal to Free T4 2.140 uIU/mL 0.450-4.5 00 Glucose Fingerstick 03/31/2024 Inhouse Glucose Fingerstick 152 Hemoglobin A1c 03/31/2024 Inhouse Hemoglobin A1c 6.2% TSH With Reflex To FT4 09/30/2023 [facility] TSH With Reflex To FT4 5.85 uIU/mL High (0.4-4.2) Urinary Microalbumin 09/30/2023 [facility] Micro-Albumin 26.0 mg/L High (<20) 1 Malb/Creat Ratio 46.2 MG/GM High (0-20) Urine Creat For Micro Albumin 56.5 mg/dL Free T4 09/30/2023 [facility] Free T4 1.01 ng/dL (0.70-1.8 0) Glucose Fingerstick 09/30/2023 Inhouse Glucose Fingerstick 133 Hemoglobin A1c 04/25/2023 Inhouse Hemoglobin A1c 6.2% Glucose Fingerstick 04/25/2023 Inhouse Glucose Fingerstick 187 Hemoglobin A1c 10/25/2022 Inhouse Hemoglobin A1c 5.9% Glucose Fingerstick 10/25/2022 Inhouse Glucose Fingerstick 201 Glucose Fingerstick 04/24/2022 Inhouse Glucose Fingerstick 155 1 The urine microalbum in test is designed to monitor renal function. When screening for Bence Cash proteinuria, urine electrophoresis is recommended. Procedures Date Code Description Status 10/08/2024 72539 Collection Of Venous Blood B y Venipuncture Completed 03/31/2024 46191 Collection Of Venous Blood B y Venipuncture Completed 09/30/2023 85298 Collection Of Venous Blood B y Venipuncture Completed Medical Devices Description No Information Available Encounters Type Date Location Provider Dx Diagnosis Office Visit 10/08/2024 9:00a Main Office Carolyn Forte M.D. 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 10/08/2024 E03.9 Hypothyroidism, unspecified Carolyn Forte M.D. 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 Plan of Treatment Future Appointment(s):* 04/07/2025 8:45 am - Carolyn Forte M.D. at Main [...]
--- OUTSIDE RECORDS SUMMARY | 2024-12-30 11:43 | XMS_ITS | Patient Health Record ---
Author Organization [facility] Address [address] [place] [address] Care Team Providers Care Apprentice Cosmetologist Name Role Phone Andi GRIMALDO, Akanksha Primary Care Provider Antwon Rajput [phone] Results Component Value Reference Range Notes Glucose, Whole Blood Reviewed date:11/14/2024 03:39:14 PM Interpretation: Performing Lab:[facility], [address] [place] [phone] Notes/Report: Glucose, Whole Blood 111 60-115 mg/dL METER # : [id number] Reason For Referral No Information Medications Medication [...] Problem Status W/U Status Risk Notes Problem [id number] Encounter for screening for malignant neoplasm of colon (Z12.11) Active confirmed Problem Perforation and abscess of small intestine co-occurrent and due to diverticulitis (disorder) (242051327) Diverticulitis of small intestine with perforation and abscess without bleeding (K57.00) Active confirmed Problem 755719427 Preprocedural examination (Z01.818) Active confirmed Problem Abnormal feces (104667119) Positive colorectal cancer screening using Cologuard test (R19.5) Active confirmed Vital Signs Temperature 96.9 degrees Fahrenheit 09/28/2024 Blood pressure diastolic 01 mm Hg 09/28/2024 Height 66 in 09/28/2024 Blood pressure systolic 001 mm Hg 09/28/2024 Weight 263 lbs 09/28/2024 BMI 42.44 kg/m2 09/28/2024 Encounters Encounter Location Date Provider Diagnosis [facility] Outpatient [address] [place] [id number] 11/12/2024 Antwon Ross Colon cancer screeni ng Z12.11 ; Family history of colon cancer Z80.0 ; Heme positive stool R19.5 ; Diverticulitis of small intestine with perforation and abscess without bleeding K57.00 and Other hemorrhoids K64.8 [facility] [address] [place] [address] 09/28/2024 Antwon Ross Positive colorectal cancer screening [...] Insured Coverage Start Date Coverage End Date [facility] [address] [place], [place] [id number] KERWIN MATTHEW Self - patient is the insured Medical (General) History Medical History History ICD Code Denies OR,DM,CVA,Lung disease,renal dise ase HTN LE edema Hypothyroidism [...]
--- OUTSIDE RECORDS SUMMARY | 2024-12-30 11:43 | XMS_ITS ---
Author Organization [facility] Address [address] [place] [address] Care Team Providers Care Appliance Service Technician Name Role Phone Andi GRIMALDO, Akanksha Primary Care Provider Antwon Rajput [phone] REASON FOR VISIT Patient presents today for [...] W/U Status Risk Notes Problem Abnormal feces (909007319) Positive colorectal cancer screening using Cologuard test (R19.5) Active confirmed Vital Signs Temperature 96.9 degrees Fahrenheit 09/28/20 24 Blood pressure systolic 001 mm Hg 09/28/20 24 Blood pressure diastolic 01 mm Hg 024 Height 66 in 09/28/2024 Weight 263 lbs 09/28/2024 BMI 42.44 kg/m2 09/28/2024 Encounters Encounter Location Date Provider Diagnosis [facility] [address] [place] [address] 09/28/2024 Antwon Ross Positive colorectal cancer screening [...] TIFF KERWIN SDOB:[birth year] (68 yo F)Acc No.[id number]:09/28/2024 Progress Notes Patient:KERWIN BRANDON Provider:?Antwon Ross MD :1955???Age:68 Y???Sex:Female D ate:09/28/2024 Address:[address] [place] [address] Pcp:Akanksha Escamilla MD Subjective: * Chief Complaints: [...] Procedure Codes:?3017F COLOR ECTAL CA SCREEN DOC [id number] TOBACCO NON-LEKZP2888 BP SCR NOT PRFRM REC REASON NOS [...] Date:? 024 Generated for Marlyn cooley/Ernesto/eTjuan josesmitting on:?12/30/2024 11:42 AM EDT History and Physical Notes * [...]
== END 2024-12-30 12:01 | disposition home or self-care (01) ==
LOC: HO.HMCC 10:35
PROVIDERS: PCP Internal Medicine; Visit Provider Internal Medicine
DX: Z00.01 Encounter for general adult medical examination with abnormal findings (principal); E11.9 Type 2 diabetes mellitus without complications; E66.01 Morbid (severe) obesity due to excess calories; Z68.42 Body mass index [BMI] 45.0-49.9, adult; I10 Essential (primary) hypertension; E78.5 Hyperlipidemia, unspecified; M47.22 Other spondylosis with radiculopathy, cervical region; E03.9 Hypothyroidism, unspecified; M15.9 Polyosteoarthritis, unspecified; I87.2 Venous insufficiency (chronic) (peripheral); G25.81 Restless legs syndrome; E04.1 Nontoxic single thyroid nodule

== ENCOUNTER → 2024-12-30 10:34 | Outpatient (BNVA) | payer MEDICARE, SELFPAY | PROVIDERS: PCP Internal Medicine; Visit Provider Internal Medicine | DX: Z00.01 Encounter for general adult medical examination with abnormal findings (principal); E11.9 Type 2 diabetes mellitus without complications; E78.5 Hyperlipidemia, unspecified; E03.9 Hypothyroidism, unspecified; G47.33 Obstructive sleep apnea (adult) (pediatric); I87.2 Venous insufficiency (chronic) (peripheral); I10 Essential (primary) hypertension; M47.22 Other spondylosis with radiculopathy, cervical region; M15.9 Polyosteoarthritis, unspecified; E66.01 Morbid (severe) obesity due to excess calories; G25.81 Restless legs syndrome; E04.1 Nontoxic single thyroid nodule; F41.8 Other specified anxiety disorders; Z71.89 Other specified counseling; Z68.42 Body mass index [BMI] 45.0-49.9, adult | CPT/HCPCS: 96127; 99397 ==

== ENCOUNTER 2025-01-28 12:49 | Outpatient (AMB) | payer MEDICARE, SELFPAY ==
--- NOTE | 2025-01-28 12:50 | A.OFFPC_ITS ---
Intake Visit Reasons: discuss medication Allergies metformin Adverse Reaction (Verified 01/28/25 12:53) Diarrhea seasonal Allergy (Unknown, Uncoded 01/28/25 12:53) sneezing, watery itchy eyes Medication List - Last Reconciled 01/28/25 by Akanksha Escamilla MD ascorbic acid (vitamin C) (Vitamin C) 500 mg PO DAILY aspirin (Adult Low Dose Aspirin) 81 mg PO DAILY atorvastatin 10 mg PO DAILY blood sugar diagnostic (Nomadesk Ultra Blue Test Strip) Check blood sugar twice a day before meals as directed buspirone 5 mg PO TID cholecalciferol (vitamin D3) 50 mcg PO DAILY cinnamon bark (Cinnamon) 1,000 mg PO DAILY coenzyme Q10 (Co Q-10) 400 mg PO DAILY fexofenadine (Kellen Allergy) 180 mg PO DAILY gabapentin 800 mg PO TID levothyroxine 88 mcg PO QAM lisinopril 10 mg PO DAILY 90 days magnesium chloride (Slow-Mag) 71.5 mg PO DAILY mecobalamin (vitamin B12) (B12 Active) 1,000 mcg PO DAILY Ozempic (semaglutide) 0.5 mg (0.736 mL) subcut QWEEK 3 months NS pumpkin seed extract-soy germ 300 mg (Azo Bladder Control) caps PO salsalate 750 mg PO BID turmeric 1,000 mg PO DAILY Tobacco use date assessed: 12/30/24 Dental Screening Dental Screen Date: 12/30/24 HPI discuss medication HPI Details 69-year-old lady here today for follow-u p on her anxiety and depression. She was initially prescribed sertraline but was unable to tolerate it due to the side effects. Done switched to BuSpar 5 mg per tablet taken 1 tablet 3 times a day , which she has just been on for the last 3 weeks. She states that anxiety and mood swings have been better controlled, less anxious, tolerating medication well. [facility] Medical History Depression with anxiety Hypothyroidism (acquired) Ambulates with cane Seasonal allergies Vaginal atrophy Urinary incontinence LBBB (left bundle branch block) Aortic stenosis Hypothyroidism Hx of edema History of skin cancer Anxiety and depression Type 2 diabetes mellitus without complication, without long-term current use of insulin Chronic fatigue Obesity Sleeps in sitting position due to orthopnea Excessive daytime sleepiness Primary hypothyroidism Insomnia Osteopenia of left femoral neck Adrenal mass, right Mixed stress and urge urinary incontinence Multinodular goiter (nontoxic) Chronic venous insufficiency of lower extremity Migraine Osteoarthritis, multiple sites Morbid obesity due to excess calories Melanoma Left malleolar fracture RLS (restless legs syndrome) Thyroid nodule Cervical radiculopathy due to degenerative joint disease of spine LEWIS (nonalcoholic steatohepatitis) Type 2 diabetes mellitus without complication, with no history of insulin use Essential hypertension Dyslipidemia Surgical History History of ankle surgery History of hysteroscopy History of arthroscopy of both knees History of prolapse of bladder Hx of fusion of cervical spine H/O cervical discectomy H/O melanoma excision History of bilateral tubal ligation History of tonsillectomy and adenoidectomy History of bilateral knee replacement Family History Father Colon cancer Skin cancer Prostate cancer Rectal cancer Mother Diabetes mellitus CAD (coronary artery disease) Social History Household Members: Spouse Housing: House Are you a primary care management assistant to a significant other at home: No Do you presently have visiting nurse or other home services: No Alcohol intake: never Patient Tobacco Use Status: Never used Tobacco e-Cigarette/Vaping Use: Never Used Second Hand Smoke Exposure: No Substance Use Type: Marijuana Advance Directives Date on File: 07/08/24 service: No Current occupational status: retired Sexual orientation: Straight/Heterosexual Gender identity: Female Cognitive needs: No Hearing needs: No Vision needs: Yes Questionnaire PHQ-9 Over the last 2 weeks, how often have you been bothered by any of the following problems? 1. Little interest or pleasure in doing things: not at all 2. Feeling down, depressed, or hopeless: not at all 3. Trouble falling or staying asleep, or sleeping too much: more than half the days 4. Feeling tired or having little energy: several days 5. Poor appetite or overeating: not at all 6. Feeling bad about yourself - or that you are a failure or have let yourself or your family down: not at all 7. Trouble concentrating on things, such as reading the newspaper or watching television: not at all 8. Moving or speaking so slowly that other people could have noticed. Or the opposite - being so fidgety or restless that you have been moving around a lot more than usual: not at all 9. Thoughts that you would be better off or of hurting yourself in some way: not at all Total score: 3 Depression Screening Interpretation: Positive (Improved on buspirone) Depression Screening Follow-up: Existing condition, In treatment and Follow-up Visit Requested Depression Screening Done: Yes Source: Developed by Drs. Antwon Jones, Dandre An and colleagues, with an educational bret from [employer]. Thrive Questionnaire Date Thrive assessed: 12/23/24 AUDIT C Alcohol Use Questionnaire (AUDIT-C) 1. How often do you have a drink containing alcohol?: Never Total Score: 0 TOM-7 AMB Questionnaire TOM-7 Date TOM - 7 assessed: 01/28/25 Feeling nervous, anxious, or on edge: 0 = Not at all Not being able to stop or control worryin = Not at all Worrying too much about different things: 0 = Not at all Trouble relaxin = Not at all Being so restless that it is hard to sit still: 0 = Not at all Becoming easily annoyed or irritable: 0 = Not at all Feeling afraid as if something awful might happen: 0 = Not at all Total TOM-7 score (0-4 normal; 5-9 mild; 10-14 moderate; 15-21 severe): 0 Source: Developed by Drs. Antwon Jones, Dandre An and colleagues, with an educational bret from [employer]. TOM-7 Assessment Billing TOM-7 Assessment Tool: TOM-7 Assessment 73169 Review of Systems Const All systems reviewed & are unremarkable except as noted in HPI and below Physical exam (Primary Care) Tobacco/Smoking Status: Tobacco use Status Tobacco use date assessed 12/30/24 01/28/25 12:51 Patient Tobacco Use Status Never used Tobacco 01/28/25 12:51 e-Cigarette/Vaping Use Never Used 01/28/25 12:51 Depression Screening Interpretation: Positive (Improved on buspirone) Depression Screening Follow-up: Existing condition, In treatment and Follow-up Visit Requested Thrive Assessment: Date of Thrive Assessment Date Thrive assessed 12/23/24 01/28/25 12:51 Telehealth Telehealth Telehealth Platform: [employer] Location of provider rendering services: practice address Location of patient: address on file Patient Identification confirmed using: Name, : Yes Telehealth method: video Patient verbally consented to treatment: Yes Patient verbally consented to billing insurance company: Yes Patient informed of any privacy concerns related to visit: Yes Minutes spent on Phone/Video with Pt.: 15 Coding Level of Care Code Tele Est Pt Level 4 (45862) Diagnoses Depression with anxiety F41.8 Insomnia due to other mental disorder F51.05; F99 Insomnia type: due to other mental disorder Additional Codes TOM-7 Assessment Billing - TOM-7 Assessment Tool: TOM-7 Assessment 23484 ([id number]) Assessment & Plan Assessment & Plan (1) Depression with anxiety: Code(s): F41.8 - Other specified anxiety disorders Category: Medical Plan: Continued on buspirone 5 mg per tablet to take 1 tablet 3 times a day. Rx sent to [facility], will see her back for follow-up in May 2025 (2) Insomnia: Code(s): G47.00 - Insomnia, unspecified Category: Medical Qualifiers: Insomnia type: due to other mental disorder Qualified Code(s): F51.05 - Insomnia due to other mental disorder; F99 - Mental disorder, not otherwise specified Plan: Advised to give buspirone time to work, call if after 2 weeks no relief in her sleeping habits Orders: Orders Basic Metabolic Panel Fasting 05/30/25 E03.9 - Hypothyroidism, unspecified, E11.9 - Type 2 diabetes mellitus without complications, E78.5 - Hyperlipidemia, unspecified, F41.8 - Other specified anxiety disorders, F51.05 - Insomnia due to other mental disorder, F99 - Mental disorder, not otherwise specified, G25.81 - Restless legs syndrome, I10 - Essential (primary) hypertension, M85.852 - Other specified disorders of bone density and structure, left thigh Alanine Aminotransferase 05/30/25 E03.9 - Hypothyroidism, unspecified, E11.9 - Type 2 diabetes mellitus without complications, E78.5 - Hyperlipidemia, unspecified, F41.8 - Other specified anxiety disorders, F51.05 - Insomnia due to other mental disorder, F99 - Mental disorder, not otherwise specified, G25.81 - Restless legs syndrome, I10 - Essential (primary) hypertension, M85.852 - Other specified disorders of bone density and structure, left thigh Aspartate Amino Transferase 05/30/25 E03.9 - Hypothyroidism, unspecified, E11.9 - Type 2 diabetes mellitus without complications, E78.5 - Hyperlipidemia, unspecified, F41.8 - Other specified anxiety disorders, F51.05 - Insomnia due to other mental disorder, F99 - Mental disorder, not otherwise specified, G25.81 - Restless legs syndrome, I10 - Essential (primary) hypertension, M85.852 - Other specified disorders of bone density and structure, left thigh Lipid Panel 05/30/25 E03.9 - Hypothyroidism, unspecified, E11.9 - Type 2 diabetes mellitus without complications, E78.5 - Hyperlipidemia, unspecified, F41.8 - Other specified anxiety disorders, F51.05 - Insomnia due to other mental disorder, F99 - Mental disorder, not otherwise specified, G25.81 - Restless legs syndrome, I10 - Essential (primary) hypertension, M85.852 - Other specified disorders of bone density and structure, left thigh Hemoglobin A1c 05/30/25 E03.9 - Hypothyroidism, unspecified, E11.9 - Type 2 diabetes mellitus without complications, E78.5 - Hyperlipidemia, unspecified, F41.8 - Other specified anxiety disorders, F51.05 - Insomnia due to other mental disorder, F99 - Mental disorder, not otherwise specified, G25.81 - Restless legs syndrome, I10 - Essential (primary) hypertension, M85.852 - Other specified disorders of bone density and structure, left thigh Thyroid Stimulating Hormone 05/30/25 E03.9 - Hypothyroidism, unspecified, E11.9 - Type 2 diabetes mellitus without complications, E78.5 - Hyperlipidemia, unspecified, F41.8 - Other specified anxiety disorders, F51.05 - Insomnia due to other mental disorder, F99 - Mental disorder, not otherwise specified, G25.81 - Restless legs syndrome, I10 - Essential (primary) hypertension, M85.852 - Other specified disorders of bone density and structure, left thigh Free T4 (Free Thyroxine) 05/30/25 E03.9 - Hypothyroidism, unspecified, E11.9 - Type 2 diabetes mellitus without complications, E78.5 - Hyperlipidemia, unspecified, F41.8 - Other specified anxiety disorders, F51.05 - Insomnia due to other mental disorder, F99 - Mental disorder, not otherwise specified, G25.81 - Restless legs syndrome, I10 - Essential (primary) hypertension, M85.852 - Other specified disorders of bone density and structure, left thigh Vitamin B12 and Folate 05/30/25 E03.9 - Hypothyroidism, unspecified, E11.9 - Type 2 diabetes mellitus without complications, E78.5 - Hyperlipidemia, unspecified, F41.8 - Other specified anxiety disorders, F51.05 - Insomnia due to other mental disorder, F99 - Mental disorder, not otherwise specified, G25.81 - Restless legs syndrome, I10 - Essential (primary) hypertension, M85.852 - Other specified disorders of bone density and structure, left thigh Vitamin D 25-OH Total 05/30/25 E03.9 - Hypothyroidism, unspecified, E11.9 - Type 2 diabetes mellitus without complications, E78.5 - Hyperlipidemia, unspecified, F41.8 - Other specified anxiety disorders, F51.05 - Insomnia due to other mental disorder, F99 - Mental disorder, not otherwise specified, G25.81 - Restless legs syndrome, I10 - Essential (primary) hypertension, M85.852 - Other specified disorders of bone density and structure, left thigh Medications: Changed From buspirone 5 mg PO TID 90 tabs 0RF F32.A - Depression, unspecified, F41.9 - Anxiety disorder, unspecified To buspirone 5 mg PO TID 270 tabs 1RF 3 months F32.A - Depression, unspecified, F41.9 - Anxiety disorder, unspecified
--- OUTSIDE RECORDS SUMMARY | 2025-01-28 13:14 | XMS_ITS ---
Author Organization [facility] Address [address] [place] [address] Care Team Providers Care Hotel Reservationist Name Role Phone Andi GRIMALDO, Akanksha Primary Care Provider Antwon Rajput [facility] [phone] REASON FOR VISIT positive colon cancer screening using cologuard Problems Problem Type SNOMED Code ICD Code Onset Dates Problem Status W/U Status Risk Notes Problem Perforation and abscess of small intestine co-occurrent and due to diverticulitis (disorder) (990332111) Diverticulitis of small intestine with perforation and abscess without bleeding (K57.00) Active confirmed Encounters Encounter Location Date Provider Diagnosis [facility] [place] [address] [place] [phone] 11/12/2024 Antwon Ross Colon cancer scree lillian [...] KERWIN MATTHEW SDOB:[birth year] (69 yo F)Acc No.[id number]:11/12/2024 COLON WITH MAC Patient:?KERWIN MATTHEW Provider:?Antwon Ross MD :1955???Age:68 Y???Sex:Female D ate:11/12/2024 Address:[address] [place] [address] Pcp:Akanksha Escamilla MD Subjective: * Chief Complaints: [...] MD Date:? 025 Generated for Marlyn cooley/Ernesto/eTransmitting on:?01/28/2025 01:14 PM EDT
--- OUTSIDE RECORDS SUMMARY | 2025-01-28 13:14 | XMS_ITS | Continuity of Care Document ---
Author Organization [facility] Address [address] [address] [place] [address] Phone [phone] Care Team Providers Care Crab Catcher Name Role Phone Akanksha Escamilla Care Team Information Insurance Case Manager [phone] Problems Active Problems Provider Date Hypothyroidism Carolyn [...] SIG Qnty Indications Order ing Provider Date Uhhjagxebk863bz Tablets Take One Tablet By Mouth Three Times A Day Unknown Vkwkjmntp759oy Tablets Take One Tablet By Mouth Twice A Day as Needed For Pain Unknown Atorvastatin Wqzcexx90hs Tablets Take One Tablet By Mouth Every Day Unknown Levothyroxine Vzizmu01afp Tablets Take One Tablet By Mouth Every Morning Except Take 2 On Sundays Unknown Albuterol Sulfate JNI550(90Base) mcg/Act Aerosol Jake Shook MD Vitamin S574lfu (2000 Ut) Tablets 1 by mouth every day Carolyn Forte M.D. Cioiogkboa25se Tablets 1 by mouth every day 90tabs Carolyn Forte M.D. Aspirin Adult Low Mrwy07ia Tablets DR 1 by mouth every day [...] 6.2% TSH With Reflex To FT4 09/30/2023 [facility] TSH With Reflex To FT4 5.85 uIU/mL High (0.4-4.2) Urinary Microalbumin 09/30/2023 [facility] Micro-Albumin 26.0 mg/L High (<20) 1 Malb/Creat Ratio 46.2 MG/GM High (0-20) Urine Creat For Micro Albumin 56.5 mg/dL Free T4 09/30/2023 [facility] Free T4 1.01 ng/dL (0.70-1.8 [...] recommended. Procedures Date Code Description Status 10/08/2024 01582 Collection Of Venous Blood B y Venipuncture Completed 03/31/2024 02387 Collection Of Venous Blood B y Venipuncture Completed 09/30/2023 74080 Collection Of Venous Blood B y Venipuncture [...]
--- OUTSIDE RECORDS SUMMARY | 2025-01-28 13:14 | XMS_ITS ---
Author Organization [facility] Address [address] [place] [address] Care Team Providers Care Pulp Drier Firer Name Role Phone Andi GRIMALDO, Akanksha Primary Care Provider Antwon Rajput [phone] REASON FOR VISIT Patient presents today for [...] Problem Status W/U Status Risk Notes Problem Positive colorectal cancer screening using Cologuard test (R19.5) Active confirmed Vital Signs Temperature 96.9 degrees Fahrenheit 09/28/20 24 Blood pressure systolic 001 mm Hg 09/28/20 24 Blood pressure diastolic 01 mm Hg 024 Height 66 in 09/28/2024 Weight 263 lbs 09/28/2024 BMI 42.44 kg/m2 09/28/2024 Encounters Encounter Location Date Provider Diagnosis [facility] [address] [place] [address] 09/28/2024 Antwon Ross Positive colorectal cancer screening [...] Follow Up: prn, Reason: Progress Notes * KERWIN MATTHEW SDOB:[birth year] (68 yo F)Acc No.[id number]:09/28/2024 Progress Notes Patient:?KERWIN MATTHEW Provider:?Antwon Ross MD :1955???Age:68 Y???Sex:Female D ate:09/28/2024 Address:[address] [place] [address] Pcp:Akanksha Escamilla MD Subjective: * Chief Complaints: [...] Procedure Codes:?3017F COLOR ECTAL CA SCREEN DOC [id number] TOBACCO NON-TUTDL4989 BP SCR NOT PRFRM REC REASON NOS [...] Ross MD Date:? 024 Generated for Marlyn cooley/Ernesto/eTransmitting on:?01/28/2025 01:14 PM EDT History and Physical Notes * HPI [...]
--- OUTSIDE RECORDS SUMMARY | 2025-01-28 13:15 | XMS_ITS | Patient Health Record ---
Author Organization [facility] Address [address] [place] [address] Care Team Providers Care Bmw Service Technician Name Role Phone Andi GRIMALDO, Akanksha Primary Care Provider Antwon Rajput [phone] Results Component Value Reference Range Notes Glucose, Whole Blood Reviewed date:11/14/2024 03:39:14 PM Interpretation: Performing Lab:[facility], [address] [place] [phone] Notes/Report: Glucose, Whole Blood 111 60-115 mg/dL METER # : [id number] Reason For Referral No Information Medications Medication [...] Problem Status W/U Status Risk Notes Problem [id number] Encounter for screening for malignant neoplasm of colon (Z12.11) Active confirmed Problem Perforation and abscess of small intestine co-occurrent and due to diverticulitis (disorder) (254604655) Diverticulitis of small intestine with perforation and abscess without bleeding (K57.00) Active confirmed Problem 100727839 Preprocedural examination (Z01.818) Active confirmed Problem Positive colorectal cancer screening using Cologuard test (R19.5) Active confirmed Vital Signs Temperature 96.9 degrees Fahrenheit 09/28/2024 Blood pressure diastolic 01 mm Hg 09/28/2024 Height 66 in 09/28/2024 Blood pressure systolic 001 mm Hg 09/28/2024 Weight 263 lbs 09/28/2024 BMI 42.44 kg/m2 09/28/2024 Encounters Encounter Location Date Provider Diagnosis [facility] [place] Out[place] [address] [place] [phone] 11/12/2024 Antwon Ross Colon cancer screeni ng Z12.11 ; Family history of colon cancer Z80.0 ; Heme positive stool R19.5 ; Diverticulitis of small intestine with perforation and abscess without bleeding K57.00 and Other hemorrhoids K64.8 [facility] [address] [place] [address] 09/28/2024 Antwon Ross Positive colorectal cancer screening [...] Insured Coverage Start Date Coverage End Date [facility] [address] [place], [place] [id number] KERWIN MATTHEW Self - patient is the insured Medical (General) History Medical History History ICD Code Denies MT,DM,CVA,Lung disease,renal dise ase HTN LE edema Hypothyroidism [...]
== END 2025-01-28 13:38 | disposition home or self-care (01) ==
LOC: HO.HMCC 12:49
PROVIDERS: PCP Internal Medicine; Visit Provider Internal Medicine
DX: F41.8 Other specified anxiety disorders (principal); F51.05 Insomnia due to other mental disorder; F99 Mental disorder, not otherwise specified

== ENCOUNTER → 2025-01-28 12:49 | Outpatient (BNVA) | payer MEDICARE, SELFPAY | PROVIDERS: PCP Internal Medicine; Visit Provider Internal Medicine | DX: F41.8 Other specified anxiety disorders (principal); F51.05 Insomnia due to other mental disorder; F32.A Depression, unspecified | CPT/HCPCS: 96127 ==

== ENCOUNTER 2025-05-31 06:05 | Outpatient (REF) | payer MEDICARE, SELFPAY ==
--- OUTSIDE RECORDS SUMMARY | 2024-11-12 07:00 | XMS_ITS ---
Author Organization [facility] Address [address] [place] [address] Care Team Providers Care Roving Teller Name Role Phone Andi GRIMALDO, Akanksha Primary Care Provider Antwon Rajput [facility] [phone] REASON FOR VISIT positive colon cancer screening using cologuard Problems Problem Type SNOMED Code ICD Code Onset Dates Problem Status W/U Status Risk Notes Problem Perforation and abscess of small intestine co-occurrent and due to diverticulitis (disorder) (997604290) Diverticulitis of small intestine with perforation and abscess without bleeding (K57.00) Active confirmed Encounters Encounter Location Date Provider Diagnosis [facility] Outpatient [address] [place] [address] [phone] 11/12/2024 Antwon Ross Colon cancer scree lillian [...] KERWIN MATTHEW SDOB:[birth year] (69 yo F)Acc No.[id number]:11/12/2024 COLON WITH MAC Patient: KERWIN RUSSELL Provider: Kendall Ross MD :1955 A ge:68 Y S ex:Female Date:11/12/2024 Address:[address] [place] [address] Pcp:Akanksha Escamilla MD Subjective: * Chief Complaints: [...] 0 11/12/2024 Generated for Marlyn cooley/Ernesto/eTransmitting on: 0 05/31/2025 06:06 AM EDT
--- OUTSIDE RECORDS SUMMARY | 2025-05-31 06:07 | XMS_ITS | Patient Health Record ---
Author Organization [facility] Address [address] [place] [address] Care Team Providers Care Patient Relations Coordinator Name Role Phone Andi GRIMALDO, Akanksha Primary Care Provider Antwon Rajput [phone] Results Component Value Reference Range Notes Glucose, Whole Blood Reviewed date:11/14/2024 03:39:14 PM Interpretation: Performing Lab:[facility], [address] [place] [phone] Notes/Report: Glucose, Whole Blood 111 60-115 mg/dL METER # : [id number] Reason For Referral No Information Medications Medication [...] Problem Status W/U Status Risk Notes Problem [id number] Encounter for screening for malignant neoplasm of colon (Z12.11) Active confirmed Problem Perforation and abscess of small intestine co-occurrent and due to diverticulitis (disorder) (992349001) Diverticulitis of small intestine with perforation and abscess without bleeding (K57.00) Active confirmed Problem 784769911 Preprocedural examination (Z01.818) Active confirmed Problem Abnormal feces (443382536) Positive colorectal cancer screening using Cologuard test (R19.5) Active confirmed Vital Signs Temperature 96.9 degrees Fahrenheit 09/28/2024 Blood pressure diastolic 01 mm Hg 09/28/2024 Height 66 in 09/28/2024 Blood pressure systolic 001 mm Hg 09/28/2024 Weight 263 lbs 09/28/2024 BMI 42.44 kg/m2 09/28/2024 Encounters Encounter Location Date Provider Diagnosis [facility] Outpatient [address] [place] [id number] 11/12/2024 Antwon Ross Colon cancer screeni ng Z12.11 ; Family history of colon cancer Z80.0 ; Heme positive stool R19.5 ; Diverticulitis of small intestine with perforation and abscess without bleeding K57.00 and Other hemorrhoids K64.8 [facility] [address] [place] [address] 09/28/2024 Antwon Ross Positive colorectal cancer screening [...] Insured Coverage Start Date Coverage End Date [facility] [address] [place], [place] [id number] KERWIN MATTHEW Self - patient is the insured Medical (General) History Medical History History ICD Code Denies VT,DM,CVA,Lung disease,renal dise ase HTN LE edema Hypothyroidism [...]
[2025-05-31 11:10] LABS: Hemoglobin A1C 117.5688 umol/L; Total Hemoglobin (HGBA1C) 3460.0561 umol/L
[2025-05-31 11:48] LABS: Folate 8.2 ng/mL (> or = 4.0); Vitamin B12 571 pg/mL (200-900)
[2025-05-31 12:38] LABS: Free T4 (Free Thyroxine) 1.07 ng/dL (0.71-1.85); Thyroid Stimulating Hormone 2.12 uIU/mL (0.32-4.0)
[2025-05-31 13:13] LABS: Alanine Aminotransferase 23 U/L (0-31); Anion Gap 13 (12-20); Aspartate Amino Transferase 36 U/L (5-31); Blood Urea Nitrogen 21 mg/dL (9-16); Calcium 9.3 mg/dL (8.4-10.2); Carbon Dioxide 25 mmol/L (22-29); Chloride 110 mmol/L (96-108); Cholesterol 121 mg/dL (<200); Estimated Glomerular Filt Rate > 60; HDL Cholesterol 51 mg/dL (>40); Potassium 4.6 mmol/L (3.3-5.1); Sodium 143 mmol/L (135-145); Triglycerides 63 mg/dL (<150)
== END 2025-05-31 06:06 | disposition home or self-care (01) ==
LOC: HO.HMGCLDS 06:05
PROVIDERS: PCP Internal Medicine; Visit Provider Internal Medicine
DX: F41.8 Other specified anxiety disorders (principal); E03.9 Hypothyroidism, unspecified; F51.05 Insomnia due to other mental disorder; F99 Mental disorder, not otherwise specified; M85.852 Other specified disorders of bone density and structure, left thigh; G25.81 Restless legs syndrome; E11.9 Type 2 diabetes mellitus without complications; I10 Essential (primary) hypertension; E78.5 Hyperlipidemia, unspecified
CPT/HCPCS: 36415; 80048; 80061; 82306; 82607; 82746; 83036; 84439; 84443; 84450; 84460

== ENCOUNTER 2025-06-08 08:04 | Outpatient (AMB) | payer MEDICARE, SELFPAY ==
--- OUTSIDE RECORDS SUMMARY | 2024-11-12 07:00 | XMS_ITS ---
Author Organization [facility] Address [address] [place] [address] Care Team Providers Care Touring Production Manager Name Role Phone Andi GRIMALDO, Akanksha Primary Care Provider Antwon Rajput [facility] [phone] REASON FOR VISIT positive colon cancer screening using cologuard Problems Problem Type SNOMED Code ICD Code Onset Dates Problem Status W/U Status Risk Notes Problem Perforation and abscess of small intestine co-occurrent and due to diverticulitis (disorder) (342506381) Diverticulitis of small intestine with perforation and abscess without bleeding (K57.00) Active confirmed Encounters Encounter Location Date Provider Diagnosis [facility] [place] [address] [place] [address] [phone] 11/12/2024 Antwon Ross Colon cancer scree lillian [...] KERWIN MATTHEW SDOB:[birth year] (69 yo F)Acc No.[id number]:11/12/2024 COLON WITH MAC Patient: KERWIN RUSSELL Provider: Kendall Ross MD :1955 A ge:68 Y S ex:Female Date:11/12/2024 Address:[address] [place] [address] Pcp:Akanksha Escamilla MD Subjective: * Chief Complaints: [...] 11/12/2024 Generated for Marlyn cooley/Ernesto/eTransmitting on: 0 06/08/2025 08:57 AM EDT
[2025-06-08 08:09] VITALS: BP 116/70; PULSE 65; RESP 16; TEMP 36.9; O2SAT 96; BMI 43.3
--- NOTE | 2025-06-08 08:09 | A.OFFPC_ITS ---
Vital Signs 06/08/25 08:09 Height 5 ft 4 in Weight 252 lb BMI 43.3 BP 116/70 Blood Pressure Location Rt brachial Position Sitting Respiration 16 Pulse 65 Temp 98.4 F Temp Source Oral Pulse Oximetry (%) 96 Oxygen Delivery Method Room Air Intake Visit Reasons: 6 month f/u med review Intake Note: Pt is here today for her 6mo. f/u Allergies metformin Adverse Reaction (Verified 06/08/25 08:26) Diarrhea seasonal Allergy (Unknown, Uncoded 06/08/25 08:26) sneezing, watery itchy eyes Medication List - Last Reconciled 06/08/25 by Akanksha Escamilla MD ascorbic acid (vitamin C) (Vitamin C) 500 mg PO DAILY aspirin (Adult Low Dose Aspirin) 81 mg PO DAILY atorvastatin 10 mg PO DAILY blood sugar diagnostic ([employer] Ultra Blue Test Strip) Check blood sugar twice a day before meals as directed buspirone 5 mg PO TID 3 months cholecalciferol (vitamin D3) 50 mcg PO DAILY cinnamon bark (Cinnamon) 1,000 mg PO DAILY coenzyme Q10 (Co Q-10) 400 mg PO DAILY fexofenadine (Kellen Allergy) 180 mg PO DAILY gabapentin 800 mg PO TID levothyroxine 88 mcg PO QAM lisinopril 10 mg PO DAILY 90 days magnesium chloride (Slow-Mag) 71.5 mg PO DAILY mecobalamin (vitamin B12) (B12 Active) 1,000 mcg PO DAILY Ozempic (semaglutide) 0.5 mg (0.736 mL) subcut QWEEK 3 months NS pumpkin seed extract-soy germ 300 mg (Azo Bladder Control) caps PO salsalate 750 mg PO BID turmeric 1,000 mg PO DAILY Tobacco use date assessed: 06/08/25 Fall risk assessment: No Falls in past year Last assessed Fall Risk: 06/08/25 Dental Screening Dental Screen Date: 12/30/24 HPI 6 month f/u med review HPI Details 69-year-old lady with history hypertensi on, hypothyroidism, type 2 diabetes mellitus, and dyslipidemia, here today for her follow-up visit. She had recent fasting labs done which showed hemoglobin A1c now at 5.3%, thyroid levels are within normal limits, on fasting lipids are within normal limits as well.. Blood pressure stable and controlled on present treatment, and has lost 12 lbs in 5 months. Jesse roseeen feeling well , no new complaints at present . She is followed at endocrine clinic or [facility], sees Dr. Carolyn Stiles [facility] Medical History (Updated 06/12/25 @ 19:02 by Akanksha Escamilla MD) Diabetes mellitus with microalbuminuria Hypothyroidism (acquired) Ambulates with cane Seasonal allergies Vaginal atrophy Urinary incontinence LBBB (left bundle branch block) Aortic stenosis Hypothyroidism Hx of edema History of skin cancer Anxiety and depression Type 2 diabetes mellitus without complication, without long-term current use of insulin Chronic fatigue Obesity Sleeps in sitting position due to orthopnea Excessive daytime sleepiness Insomnia Osteopenia of left femoral neck Adrenal mass, right Mixed stress and urge urinary incontinence Multinodular goiter (nontoxic) Chronic venous insufficiency of lower extremity Migraine Osteoarthritis, multiple sites Morbid obesity due to excess calories Melanoma Left malleolar fracture RLS (restless legs syndrome) Thyroid nodule Cervical radiculopathy due to degenerative joint disease of spine LEWIS (nonalcoholic steatohepatitis) Type 2 diabetes mellitus without complication, with no history of insulin use Essential hypertension Dyslipidemia Surgical History History of ankle surgery History of hysteroscopy History of arthroscopy of both knees History of prolapse of bladder Hx of fusion of cervical spine H/O cervical discectomy H/O melanoma excision History of bilateral tubal ligation History of tonsillectomy and adenoidectomy History of bilateral knee replacement Family History Father Colon cancer Skin cancer Prostate cancer Rectal cancer Mother Diabetes mellitus CAD (coronary artery disease) Social History Household Members: Spouse Housing: House Are you a primary career professional to a significant other at home: No Do you presently have visiting nurse or other home services: No Alcohol intake: never Patient Tobacco Use Status: Never used Tobacco e-Cigarette/Vaping Use: Never Used Second Hand Smoke Exposure: No Substance Use Type: Marijuana Advance Directives Date on File: 07/08/24 service: No Current occupational status: retired Sexual orientation: Straight/Heterosexual Gender identity: Female Cognitive needs: No Hearing needs: No Vision needs: Yes Questionnaire PHQ-9 Over the last 2 weeks, how often have you been bothered by any of the following problems? 1. Little interest or pleasure in doing things: not at all 2. Feeling down, depressed, or hopeless: not at all 3. Trouble falling or staying asleep, or sleeping too much: more than half the days 4. Feeling tired or having little energy: several days 5. Poor appetite or overeating: not at all 6. Feeling bad about yourself - or that you are a failure or have let yourself or your family down: not at all 7. Trouble concentrating on things, such as reading the newspaper or watching television: not at all 8. Moving or speaking so slowly that other people could have noticed. Or the opposite - being so fidgety or restless that you have been moving around a lot more than usual: not at all 9. Thoughts that you would be better off or of hurting yourself in some way: not at all Total score: 3 Depression Screening Interpretation: Positive (Improved on buspirone) Depression Screening Follow-up: Existing condition, In treatment and Follow-up Visit Requested Depression Screening Done: Yes Source: Developed by Drs. Antwon Jones, Edie Zhang, Dandre Sharif and colleagues, with an educational bret from [employer]. Thrive Questionnaire Date Thrive assessed: 12/23/24 I am a: Patient What is your living situation today?: I have a steady place to live Within the past 12 months, did the food you bought not last and you didn't have the money to get more?: Never true Within the past 12 months, did you worry whether your food would run out before you got money to buy more?: Never true Do you have trouble paying for medicines?: No Do you have trouble getting transportation to medical appointments?: No Do you have trouble paying your heating and electricity bill?: No Do you have trouble taking care of your child, family member or friend?: No Do you have trouble with day-to-day activities such as bathing, preparing meals, shopping, managing finances, etc.?: No Are you currently unemployed and looking for a job?: No Are you interested in more education?: No Please select the resources that you would like help with: None THRIVE Score: 0 AUDIT C Alcohol Use Questionnaire (AUDIT-C) 1. How often do you have a drink containing alcohol?: Never 3. How often do you have six or more drinks on one occasion?: Never Total Score: 0 TOM-7 AMB Questionnaire TOM-7 Date TOM - 7 assessed: 01/28/25 Feeling nervous, anxious, or on edge: 0 = Not at all Not being able to stop or control worryin = Not at all Worrying too much about different things: 0 = Not at all Trouble relaxin = Not at all Being so restless that it is hard to sit still: 0 = Not at all Becoming easily annoyed or irritable: 0 = Not at all Feeling afraid as if something awful might happen: 0 = Not at all Total TOM-7 score (0-4 normal; 5-9 mild; 10-14 moderate; 15-21 severe): 0 Source: Developed by Drs. Antwon Jones, Edie Zhang, Dandre Sharif and colleagues, with an educational bret from [employer]. Review of Systems Const Denies fever(s), Denies headache(s) and Denies weakness Eyes Denies change in vision ENT Denies dizziness and Denies headache(s) Card Denies chest pain, Denies chest pain with activity, Denies syncope, Denies rapid heart rate, Denies pedal edema, Denies lightheadedness, Denies palpitations, Denies dyspnea and Denies dyspnea on exertion Resp Denies cough, Denies dyspnea and Denies dyspnea on exertion GI Denies hematochezia and Denies change in stool character Reports no additional complaints Musc Denies muscle cramps, Denies muscle weakness, Denies numbness, Denies radiating pain into limb and Denies tingling Skin/Breast Denies breast pain and Denies breast mass Neuro Denies Abnormal speech present, Denies dizziness, Denies syncope, Denies headache(s), Denies numbness, Denies tingling and Denies weakness Psych Reports as per HPI Endo Denies palpitations Hardy/Lymph Reports no additional complaints Aller/Immun Reports no additional complaints Physical exam (Primary Care) Vital Signs: Last Vital Signs Temp 98.4 F 06/08/25 08:09 Pulse 65 06/08/25 08:09 Resp 16 06/08/25 08:09 BP 116/70 06/08/25 08:09 Pulse Ox 96 06/08/25 08:09 Oxygen Delivery Method Room Air 06/08/25 08:09 BMI result Body Mass Index 43.3 Tobacco/Smoking Status: Tobacco use Status Tobacco use date assessed 06/08/25 06/08/25 08:18 Patient Tobacco Use Status Never used Tobacco 06/08/25 08:09 e-Cigarette/Vaping Use Never Used 06/08/25 08:09 PHQ-9: PHQ-9 Score PHQ-9: Total score 3 06/08/25 15:42 Depression Screening Interpretation: Positive (Improved on buspirone) Depression Screening Follow-up: Existing condition, In treatment and Follow-up Visit Requested Thrive Assessment: Date of Thrive Assessment Date Thrive assessed 12/23/24 06/08/25 08:09 Const General: no acute distress Nutritional Appearance: obese morbidly obese Orientation/consciousness: patient oriented x3 Limitations: ambulation with cane HENMT Mouth: Normal oral and palatal mucosa present and moist mucous membranes Eyes General: appearance normal, both eyes and all related structures Neck Neck: Yes full ROM, Yes no lymphadenopathy and Yes supple Chest Breast/axilla palpation: normal palpation of the breasts Resp Effort & Inspection: normal respiratory effort, able to speak in complete sentences and symmetric chest movement Auscultation: clear to auscultation bilaterally Cardio Other: S1-S2 present regular and rhythm GI Palpation (GI): Soft to palpation, nontender, no guarding and no masses Auscultation: normal bowel sounds General: Yes no CVA tenderness and Yes deferred (declined exam) Back/Spine/Pelvis Back: no CVA tenderness and No back tenderness Skin General skin exam: no rashes or lesions noted Neuro General: patient oriented x3, moves all extremities, Normal light touch and pain sensation, no focal motor deficits, CN's II-XI intact bilaterally and normal sensation to monofilament Speech: No Abnormal speech present Extrem General: Yes full ROM and Yes no joint enlargement Psych Appearance: grossly normal and well kempt Mental Status: mental status grossly normal Speech and movement: Normal speech and movement present Affect: normal affect Thought process: Normal thought process present Thought content: Normal thought content present Results Reviewed Results Reviewed: Name: Alecia Eldridge Age/Sex: 69/F : 1955 Unit#: [id number] Attend Dr: Akanksha Escamilla MD Re05/31/25 Status: DEP REF Location: [facility] Disch: SPEC : [id number] SWAPNIL: 05/31/25 STATUS: COMP REQ : [id number] RECD: 05/31/25-[address]: Akanksha Escamilla MD COMP: 05/31/25 ENTERED: 05/31/25 [facility] DR: ORDERED: Met Prof Fast, AST, ALT, Lipid Panel, Vitamin D 25-OH, Free T4, TSH Test Result Flag Reference Sodium 143 135-145 mmol/L Potassium 4.6 3.3-5.1 mmol/L CL 110 H 96-108 mmol/L CO2 25 22-29 mmol/L Gap 13 12-20 BUN 21 H 9-16 mg/dL Creat 0.69 0.5-1.4 mg/dL eGFR > 60 Chronic Kidney Disease: Estimated GFR < 60 mL/min/1 .73m2 Severe Kidney Disease: Estimated GFR < 15 mL/min/1.73m2 FBS 123 H 60-99 mg/dL A fasting glucose from 100-125 mg/dl is considered impaired (pre-diabetes). CA 9.3 8.4-10.2 mg/dL AST (GOT) 36 H 5-31 U/L ALT (GPT) 23 0-31 U/L Triglyceride 63 <150 mg/dL Desirable Triglyceride: less than 150 mg/dL Borderline High Triglyceride 150-199 mg/dL High Triglyceride: 200-499 mg/dL Very High Triglyceride: greater than or equal to 5OO mg/dL Cholesterol 121 <200 mg/dL Desirable Cholesterol: less than 200 mg/dL Borderline High Cholesterol: 200-239 mg/dL High Cholesterol: greater than 239 mg/dL LDL Calculated 58 <100 mg/dL Desirable LDL: less than 100 mg/dL Near Optimal/Above Optimal LDL: 110-129 mg/dL Borderline High LDL: 130-159 mg/dL High LDL: 160-189 mg/dL Very High LDL: greater than or equal to 190 mg/dL HDL 51 >40 mg/dL Desirable HDL: greater than 40 mg/dL Note: This HDL assay may give artificially low results in patients with liver disease. Vitamin D 25-OH 51.4 >30 ng/mL Health Based Reference Values* < 20 ng/mL Deficient 20-30 ng/mL Insufficient > 30 ng/mL Sufficient *Timur PÉREZ. N Engl J Med. 2007;357:266-280 There is no well-established upper level of normal vi tamin D levels. Some laboratories use 50 ng/mL as an upper limit of normal. However, toxicity is patient-dependent and may occur at any level. Careful correlation with the patient's presentation is necessary and, if there is concern for vitamin D toxicity, treatment should be considered irrespective of the serum level. Care must be taken in interpreting Vitamin D results from different laboratories and methodologies. Published data demonstrated that results from patients undergoing hemodialysis may show a negative bias when tested with various automated 25-OH vitamin D assays when compared to LC-MS/MS. When testing samples from patients whose predominant form of Vitamin D is Vitamin D2, such as patients receiving Vitamin D2 supplementation, results that are subtherapeutic should be confirmed with another method such as LC-MS/MS. Free T4 1.07 0.71-1.85 ng/dL TSH 3rd Gen. 2.12 0.32-4.0 uIU/mL TSH 3rd Generation ([facility]) Laboratory Tests 05/31/25 06:20 Estimat Average Glucose 105 Hemoglobin A1c % 5.3 Laboratory Tests 12/21/24 06:51 Microalb/Creat Ratio 62.2 H Coding Level of Care Code Est Pt Level 4 (76814) Complex EM visit Add On G2211 Diagnoses Dyslipidemia E78.5 Essential hypertension I10 Chronic venous insufficiency of lower extremity I87.2 Hypothyroidism (acquired) E03.9 Type 2 diabetes mellitus without complication, with no history of insulin use E11.9 Diabetes mellitus with microalbuminuria E11.29; R80.9 Assessment & Plan Assessment & Plan (1) Dyslipidemia: Code(s): E78.5 - Hyperlipidemia, unspecified Category: Medical Plan: Recent fasting lipids are within normal limits, continued on atorvastatin 10 mg daily (2) Essential hypertension: Code(s): I10 - Essential (primary) hypertension Category: Medical Plan: Blood pressure at goal of less than 130/80. Continue with lisinopril 10 mg daily. Reinforced importance of following a low sodium diet, getting regular exercise, and lowering stress levels. (3) Chronic venous insufficiency of lower extremity: Code(s): I87.2 - Venous insufficiency (chronic) (peripheral) Category: Medical Plan: Continue weight loss, has lost approximately 12 lb already in the last months. (4) Hypothyroidism (acquired): Code(s): E03.9 - Hypothyroidism, unspecified Category: Medical Plan: Now levels are within normal limits, followed by [facility]ocrine [facility] at [facility] (5) Type 2 diabetes mellitus without complication, with no history of insulin use: Comment: Followed by Dr. Carolyn Stiles Code(s): E11.9 - Type 2 diabetes mellitus without complications Category: Medical Plan: Controlled on Ozempic 5 mg weekly, followed at endocrine clinic at [facility] by Dr. Carolyn stiles (6) Diabetes mellitus with microalbuminuria: Code(s): E11.29 - Type 2 diabetes mellitus with other diabetic kidney complication; R80.9 - Proteinuria, unspecified Category: Medical Plan: Old on Ozempic 5 mg daily, [facility], up-to-date with her diabetes retinopathy screening, sees Dr. Gallego Orders: Orders Hemoglobin A1c 12/28/25 E03.9 - Hypothyroidism, unspecified, E11.9 - Type 2 diabetes mellitus without complications, E78.5 - Hyperlipidemia, unspecified, F32.A - Depression, unspecified, F41.9 - Anxiety disorder, unspecified, I10 - Essential (primary) hypertension, I87.2 - Venous insufficiency (chronic) (peripheral), M85.852 - Other specified disorders of bone density and structure, left thigh Lipid Panel 12/28/25 E03.9 - Hypothyroidism, unspecified, E11.9 - Type 2 diabetes mellitus without complications, E78.5 - Hyperlipidemia, unspecified, F32.A - Depression, unspecified, F41.9 - Anxiety disorder, unspecified, I10 - Essential (primary) hypertension, I87.2 - Venous insufficiency (chronic) (peripheral), M85.852 - Other specified disorders of bone density and structure, left thigh Aspartate Amino Transferase 12/28/25 E03.9 - Hypothyroidism, unspecified, E11.9 - Type 2 diabetes mellitus without complications, E78.5 - Hyperlipidemia, unspecified, F32.A - Depression, unspecified, F41.9 - Anxiety disorder, unspecified, I10 - Essential (primary) hypertension, I87.2 - Venous insufficiency (chronic) (peripheral), M85.852 - Other specified disorders of bone density and structure, left thigh Alanine Aminotransferase 12/28/25 E03.9 - Hypothyroidism, unspecified, E11.9 - Type 2 diabetes mellitus without complications, E78.5 - Hyperlipidemia, unspecified, F32.A - Depression, unspecified, F41.9 - Anxiety disorder, unspecified, I10 - Essential (primary) hypertension, I87.2 - Venous insufficiency (chronic) (peripheral), M85.852 - Other specified disorders of bone density and structure, left thigh Microalbumin, Random (w Creat) 12/28/25 E03.9 - Hypothyroidism, unspecified, E11.9 - Type 2 diabetes mellitus without complications, E78.5 - Hyperlipidemia, unspecified, F32.A - Depression, unspecified, F41.9 - Anxiety disorder, unspecified, I10 - Essential (primary) hypertension, I87.2 - Venous insufficiency (chronic) (peripheral), M85.852 - Other specified disorders of bone density and structure, left thigh Basic Metabolic Panel Fasting 12/28/25 E03.9 - Hypothyroidism, unspecified, E11.9 - Type 2 diabetes mellitus without complications, E78.5 - Hyperlipidemia, unspecified, F32.A - Depression, unspecified, F41.9 - Anxiety disorder, unspecified, I10 - Essential (primary) hypertension, I87.2 - Venous insufficiency (chronic) (peripheral), M85.852 - Other specified disorders of bone density and structure, left thigh Hemoglobin and Hematocrit 12/28/25 E03.9 - Hypothyroidism, unspecified, E11.9 - Type 2 diabetes mellitus without complications, E78.5 - Hyperlipidemia, unspecified, F32.A - Depression, unspecified, F41.9 - Anxiety disorder, unspecified, I10 - Essential (primary) hypertension, I87.2 - Venous insufficiency (chronic) (peripheral), M85.852 - Other specified disorders of bone density and structure, left thigh Vitamin D 25-OH Total 12/28/25 E03.9 - Hypothyroidism, unspecified, E11.9 - Type 2 diabetes mellitus without complications, E78.5 - Hyperlipidemia, unspecified, F32.A - Depression, unspecified, F41.9 - Anxiety disorder, unspecified, I10 - Essential (primary) hypertension, I87.2 - Venous insufficiency (chronic) (peripheral), M85.852 - Other specified disorders of bone density and structure, left thigh
--- OUTSIDE RECORDS SUMMARY | 2025-06-08 08:57 | XMS_ITS | Patient Health Record ---
Author Organization [facility] Address [address] [place] [address] Care Team Providers Care Environmental Field Services Technician Name Role Phone Andi GRIMALDO, Akanksha Primary Care Provider Antwon Rajput [phone] Results Component Value Reference Range Notes Glucose, Whole Blood Reviewed date:11/14/2024 03:39:14 PM Interpretation: Performing Lab:[facility], [address] [place] [phone] Notes/Report: Glucose, Whole Blood 111 60-115 mg/dL METER # : [id number] Reason For Referral No Information Medications Medication [...] Problem Status W/U Status Risk Notes Problem [id number] Encounter for screening for malignant neoplasm of colon (Z12.11) Active confirmed Problem Perforation and abscess of small intestine co-occurrent and due to diverticulitis (disorder) (195638164) Diverticulitis of small intestine with perforation and abscess without bleeding (K57.00) Active confirmed Problem 490937924 Preprocedural examination (Z01.818) Active confirmed Problem Abnormal feces (435710511) Positive colorectal cancer screening using Cologuard test (R19.5) Active confirmed Vital Signs Temperature 96.9 degrees Fahrenheit 09/28/2024 Blood pressure diastolic 01 mm Hg 09/28/2024 Height 66 in 09/28/2024 Blood pressure systolic 001 mm Hg 09/28/2024 Weight 263 lbs 09/28/2024 BMI 42.44 kg/m2 09/28/2024 Encounters Encounter Location Date Provider Diagnosis [facility] Out[facility] [address] [place] [id number] 11/12/2024 Antwon Ross Colon cancer screeni ng Z12.11 ; Family history of colon cancer Z80.0 ; Heme positive stool R19.5 ; Diverticulitis of small intestine with perforation and abscess without bleeding K57.00 and Other hemorrhoids K64.8 [facility] [address] [place] [address] 09/28/2024 Antwon Ross Positive colorectal cancer screening [...] Insured Coverage Start Date Coverage End Date [facility] [address] [place], [place] [id number] KERWIN MATTHEW Self - patient is the insured Medical (General) History Medical History History ICD Code Denies ME,DM,CVA,Lung disease,renal dise ase HTN LE edema Hypothyroidism [...]
== END 2025-06-08 16:01 | disposition home or self-care (01) ==
LOC: HO.HMCC 08:05
PROVIDERS: PCP Internal Medicine; Visit Provider Internal Medicine
DX: E78.5 Hyperlipidemia, unspecified (principal); I10 Essential (primary) hypertension; I87.2 Venous insufficiency (chronic) (peripheral); E03.9 Hypothyroidism, unspecified; E11.29 Type 2 diabetes mellitus with other diabetic kidney complication; R80.9 Proteinuria, unspecified

== ENCOUNTER → 2025-06-08 08:04 | Outpatient (BNVA) | payer MEDICARE, SELFPAY | PROVIDERS: PCP Internal Medicine; Visit Provider Internal Medicine | DX: I10 Essential (primary) hypertension (principal); E03.9 Hypothyroidism, unspecified; E78.5 Hyperlipidemia, unspecified; I87.2 Venous insufficiency (chronic) (peripheral); E11.29 Type 2 diabetes mellitus with other diabetic kidney complication; R80.9 Proteinuria, unspecified | CPT/HCPCS: 96127; 99212 ==

== ENCOUNTER 2025-07-14 09:28 | Outpatient (REF) | payer MEDICARE, SELFPAY ==
--- OUTSIDE RECORDS SUMMARY | 2024-11-12 07:00 | XMS_ITS ---
Author Organization [facility] Address [address] [place] [address] Care Team Providers Care Test Design Engineer Name Role Phone Andi GRIMALDO, Akanksha Primary Care Provider Antwon Rajput [facility] [phone] REASON FOR VISIT positive colon cancer screening using cologuard Problems Problem Type SNOMED Code ICD Code Onset Dates Problem Status W/U Status Risk Notes Problem Perforation and abscess of small intestine co-occurrent and due to diverticulitis (disorder) (938014219) Diverticulitis of small intestine with perforation and abscess without bleeding (K57.00) Active confirmed Encounters Encounter Location Date Provider Diagnosis [facility] Outpatient [address] [place] [address] [phone] 11/12/2024 Antwon Ross Colon cancer scree lillian [...] Of Treatment No Information Progress Notes * EKRWIN MATTHEW SDOB:[birth year] (69 yo F)Acc No.[id number]:11/12/2024 COLON WITH MAC Patient: KERWIN RUSSELL Provider: Kendall Ross MD :1955 A ge:68 Y S ex:Female Date:11/12/2024 Address:[address] [place] [address] Pcp:Akanksha Escamilla MD Subjective: * Chief Complaints: * 1 . Positive colon cancer screening using cologuard. * Medical History: Objective: * Vitals: Assessment: * Assessment: 1. C olon cancer screening - Z12.11 (Primary) 2 . F amily history of colon cancer - Z80.0 3 . H ruthie positive stool - R19.5 4 . D iverticulitis of small intestine with perforation and abscess without bleeding - K57.00 5 . O ther hemorrhoids - K64.8 Plan: * Treatment: * Procedure Codes: G 0105 COLOREC CANCR SCR; COLNSCPY HI RISK, 0529F INTRVL 3+YRS PTS CLNSCP DOCD, 0528F RCMND FLW-UP 10 YRS DOCD, Modifiers: 1P * * The named appointment provid er may or may not be the originator of this progress note, and it is not deemed complete until electronically signed by the appointment provider. Sign off status: Pending * Provider: Kendall Ross MD Date: 0 11/12/2024 Generated for Marlyn cooley/Ernesto/eTransmitting on: 1 10:48 AM EDT
--- OUTSIDE RECORDS SUMMARY | 2025-07-14 10:49 | XMS_ITS | Patient Health Record ---
Author Organization [facility] Address [address] [place] [phone] Care Team Providers Care Warranty Coordinator Name Role Phone Andi GRIMALDO, Akanksha Primary Care Provider Antwon Rajput [phone] Results Component Value Reference Range Notes Glucose, Whole Blood Reviewed date:11/14/2024 03:39:14 PM Interpretation: Performing Lab:[facility], [address] [place] [id number] Notes/Report: Glucose, Whole Blood 111 60-115 mg/dL METER # : [id number] Reason For Referral No Information Medications Medication [...] Problem Status W/U Status Risk Notes Problem Screening for malignant neoplasm of colon (278956267) Encounter for screening for malignant neoplasm of colon (Z12.11) Active confirmed Problem Perforation and abscess of small intestine co-occurrent and due to diverticulitis (disorder) (420806633) Diverticulitis of small intestine with perforation and abscess without bleeding (K57.00) Active confirmed Problem Preprocedural examination (887310606473185) Preprocedural examination (Z01.818) Active confirmed Problem Abnormal feces (524220482) Positive colorectal cancer screening using Cologuard test (R19.5) Active confirmed Vital Signs Temperature 96.9 degrees Fahrenheit 09/28/2024 Blood pressure diastolic 01 mm Hg 09/28/2024 Height 66 in 09/28/2024 Blood pressure systolic 001 mm Hg 09/28/2024 Weight 263 lbs 09/28/2024 BMI 42.44 kg/m2 09/28/2024 Encounters Encounter Location Date Provider Diagnosis [facility] [place] [address] [id number] 11/12/2024 Antwon Ross Colon cancer screeni ng Z12.11 ; Family history of colon cancer Z80.0 ; Heme positive stool R19.5 ; Diverticulitis of small intestine with perforation and abscess without bleeding K57.00 and Other hemorrhoids K64.8 [facility] [address] [place] [address] 09/28/2024 Antwon Ross Positive colorectal cancer screening [...] Insured Coverage Start Date Coverage End Date [facility] [address] [place], [place] [id number] [phone] [id number] KERWIN MATTHEW Self - patient is the insured Medical (General) History Medical History History ICD Code Denies [place],DM,CVA,Lung disease,renal dise ase HTN LE edema Hypothyroidism [...]
== END 2025-07-14 09:29 | disposition home or self-care (01) ==
LOC: HO.MAMMO 09:28
PROVIDERS: PCP Internal Medicine; Visit Provider Internal Medicine
DX: Z12.31 Encounter for screening mammogram for malignant neoplasm of breast (principal)
CPT/HCPCS: 77063; 77067

== ENCOUNTER → 2025-07-14 09:45 | Outpatient (BNV) | payer MEDICARE, SELFPAY | PROVIDERS: PCP Internal Medicine; Visit Provider Radiology Body Imaging | DX: Z12.31 Encounter for screening mammogram for malignant neoplasm of breast (principal) | CPT/HCPCS: 77063; 77067 ==

== ENCOUNTER 2025-09-13 08:15 | Outpatient (AMB) | payer MEDICARE, SELFPAY ==
--- OUTSIDE RECORDS SUMMARY | 2024-11-12 06:00 | XMS_ITS ---
Author Organization [facility] Address [address] [place] [address] Care Team Providers Care M48 M60 Armor Crewman Name Role Phone Andi GRIMALDO, Akanksha Primary Care Provider Antwon Rajput [facility] [phone] REASON FOR VISIT positive colon cancer screening using cologuard Problems Problem Type SNOMED Code ICD Code Onset Dates Problem Status W/U Status Risk Notes Problem Perforation and abscess of small intestine co-occurrent and due to diverticulitis (disorder) (451825455) Diverticulitis of small intestine with perforation and abscess without bleeding (K57.00) Active confirmed Encounters Encounter Location Date Provider Diagnosis [facility] [place] [address] [place] [address] [phone] 11/12/2024 Antwon Ross Colon cancer scree lillian Z12.11 ; Family history of colon cancer Z80.0 ; Heme positive stool R19.5 ; Diverticulitis of small intestine with perforation and abscess without bleeding K57.00 and Other hemorrhoids K64.8 Assessments Encounter Date Diagnosis (ICD Code) Assessment Notes Treatment Notes Treatment Clinical Notes Section Notes 11/12/2024 Colon cancer screening (ICD-10 - Z12.11) 11/12/2024 Family history of colon cancer (ICD-10 - Z80.0) 11/12/2024 Heme positive stool (ICD-10 - R19.5) 11/12/2024 Diverticulitis of small intestine with perforation and abscess without bleeding (ICD-10 - K57.00) 11/12/2024 Other hemorrhoids (ICD-10 - K64.8) Plan Of Treatment No Information Progress Notes * KERWIN MATTHEW SDOB:[birth year] (69 yo F)Acc No.[id number]:11/12/2024 COLON WITH MAC Patient: KERWIN RUSSELL Provider: Kendall Ross MD :1955 A ge:68 Y S ex:Female Date:11/12/2024 Address:[address] [place] [address] Pcp:Akanksha Escamilla MD Subjective: * Chief Complaints: * P ositive colon cancer screening using cologuard Assessment: * Assessment: 1. C olon cancer screening - Z12.11 (Primary) 2 . F amily history of colon cancer - Z80.0 3 . H ruthie positive stool - R19.5 4 . D iverticulitis of small intestine with perforation and abscess without bleeding - K57.00 5 . O ther hemorrhoids - K64.8 Plan: * Procedure Codes: G 0105 COLOREC CANCR SCR; COLNSCPY HI [id number] INTRVL 3+YRS PTS CLNSCP [id number] RCMND FLW-UP 10 YRS DOCD, Modifiers: 1P Billing Information: * Procedure Codes: G0105 COLOREC CANCR SCR; COLNSCPY HI RISK. 0529F INTRVL 3+YRS PTS CLNSCP DOCD. 0528F RCMND FLW-UP 10 YRS DOCD. Modifiers: 1P * The named appointment provid er may or may not be the originator of this progress note, and it is not deemed complete until electronically signed by the appointment provider. Sign off status: Pending * Provider: Kendall Ross MD Date: 0 11/12/2024 Generated for Marlyn cooley/Ernesto/Ana Cristinaitting on: 1 11/14/2024 08:29 AM EST
--- OUTSIDE RECORDS SUMMARY | 2025-09-13 08:30 | XMS_ITS | Patient Health Record ---
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 Role Phone Andi GRIMALDO, Akanksha Primary Care Provider Antwon Rajput [phone] Results Component Value Reference Range Flag Notes Glucose, Whole Blood Reviewed date:11/14/2024 03:39:14 PM Interpretation: Performing Lab:[facility], [address] [place] [id number] Notes/Report: Glucose, Whole Blood 111 60-115 mg/dL [facility] #: [id number] Reason For Referral No Information Medications Medication SIG (Take, Route, Frequency, Duration) Notes Start Date End Date Status Ozempic (0.25 or 0.5 MG/DOSE) Active Salsalate 750 MG Tablet 2 tablets with f ood Orally Twice a day Active Gabapentin 800 MG Tablet 1 capsule Orall y Once a day Active Uro-458 Active Atorvastatin Calcium 10 MG Tablet 1 tablet Orally Once a day Active Co Q 10 Active Levothyroxine Sodium 88 MCG Tablet 1 tablet in the morning on an empty stomach Orally Once a day Active Slow-Mag Active Lisinopril 10 MG Tablet 1 tablet Orally Once a day Active Magnesium 27 Active Cinnamon 500 MG Capsule 2 capsules Orally daily Active Vitamin D-3 Active Vitamin C 500 MG Tablet Chewable 1 tablet Orally Once a day Active Aspirin 81 Active Turmeric Curcumin 500 MG Capsule 2 Orally QG Active AZO Bladder Control/Go-Less Active Kellen Allergy 180 MG Tablet 1 tablet Swallow whole with water; do not take with fruit juices. Orally Once a day Active Immunizations Vaccine Route Administration Date Status Comme nts Influenza Unknown 08/31/2024 Administered Social History Tobacco Use: Social History Observation Description Date Details (start date - stop date) Never Smoker NA - NA Social History Drugs/Alcohol: Social Info Question Answer Notes Alcohol Screen Did you have a drink containing alcohol in the past year? No Points 0 Interpretation Negative Tobacco Use: Social Info Question Answer Notes Tobacco Use/Smoking Patient is a nonsmoker Additional Details Category Social Info Options Details Miscellaneous: Marital status: Occupation: unemployed/disab ility Section Notes: Nonsmoker; no sig alcohol Nonsmoker; no sig alcohol Problems Problem Type SNOMED Code ICD Code Onset Dates Problem Status W/U Status Risk Notes Problem Screening for malignant neoplasm of colon (842413568) Encounter for screening for malignant neoplasm of colon (Z12.11) Active confirmed Problem Perforation and abscess of small intestine co-occurrent and due to diverticulitis (disorder) (274616499) Diverticulitis of small intestine with perforation and abscess without bleeding (K57.00) Active confirmed Problem Preprocedural examination (237455646324967) Preprocedural examination (Z01.818) Active confirmed Problem Abnormal feces (676437321) Positive colorectal cancer screening using Cologuard test (R19.5) Active confirmed Vital Signs Temperature 96.9 degrees Fahrenheit 09/28/2024 Blood pressure diastolic 01 mm Hg 09/28/2024 Height 66 in 09/28/2024 Blood pressure systolic 001 mm Hg 09/28/2024 Weight 263 lbs 09/28/2024 BMI 42.44 kg/m2 09/28/2024 Encounters Encounter Location Date Provider Diagnosis [facility] [place] [address] [place] [id number] 11/12/2024 Antwon Ross Colon cancer screeni ng Z12.11 ; Family history of colon cancer Z80.0 ; Heme positive stool R19.5 ; Diverticulitis of small intestine with perforation and abscess without bleeding K57.00 and Other hemorrhoids K64.8 [facility] [address] [place] [address] 09/28/2024 Antwon Ross Positive colorectal cancer screening [...] Insured Coverage Start Date Coverage End Date [facility] [address] [place], [place] [id number] KERWIN MATTHEW Self - patient is the insured Medical (General) History Medical History History ICD Code Denies [place],DM,CVA,Lung disease,renal dise ase HTN LE edema Hypothyroidism Negative screening colonosco py in 2005 except for diverticulosis and internal hemorrhoids Aortic stenosis--sees Dr. Rahman Left bundle branch block (LBBB) Negative colonoscopy in 2016 Surgical History Surgery Date(Month/Year) Spine surgery 07/2016--C6 to T1 left knee arthroscopy right knee arthroscopy left knee replacement 2014 right knee replacement 2014 tonsillectomy tubal ligation skin cancer removals Uterine ablation Ankle surgery
[2025-09-13 08:39] VITALS: BP 124/72; PULSE 63; BMI 41.5
--- NOTE | 2025-09-13 08:39 | MHC.OFFVIS ---
Vital Signs 09/13/25 08:39 Height 5 ft 4 in Weight 242 lb 1.081 oz BMI 41.5 BP 124/72 Blood Pressure Location Rt brachial Position Sitting Pulse 63 Pulse Source Monitor Intake Visit Reasons: 2 yrs followup w/ekg dx: lbbb Intake Note: 2 Year follow up w/ekg dx: lbbb Accompanied by: Self / Same As Patient Allergies metformin Adverse Reaction (Verified 09/13/25 08:43) Diarrhea seasonal Allergy (Unknown, Uncoded 06/08/25 08:26) sneezing, watery itchy eyes Medication List - Last Reconciled 09/13/25 by Thanh Rahman MD ascorbic acid (vitamin C) (Vitamin C) 500 mg PO DAILY aspirin (Adult Low Dose Aspirin) 81 mg PO DAILY atorvastatin 10 mg PO DAILY blood sugar diagnostic (Tiragiu Ultra Blue Test Strip) Check blood sugar twice a day before meals as directed buspirone 5 mg PO TID 3 months cholecalciferol (vitamin D3) 50 mcg PO DAILY cinnamon bark (Cinnamon) 1,000 mg PO DAILY coenzyme Q10 (Co Q-10) 400 mg PO DAILY fexofenadine (Kellen Allergy) 180 mg PO DAILY gabapentin 800 mg PO TID levothyroxine 88 mcg PO QAM lisinopril 10 mg PO DAILY 90 days magnesium chloride (Slow-Mag) 71.5 mg PO DAILY mecobalamin (vitamin B12) (B12 Active) 1,000 mcg PO DAILY Ozempic (semaglutide) 0.5 mg (0.736 mL) subcut QWEEK 3 months NS pumpkin seed extract-soy germ 300 mg (Azo Bladder Control) caps PO salsalate 750 mg PO BID turmeric 1,000 mg PO DAILY HPI Comments Details: Alecia comes for her 2 year follow-up for left bundle-branch block and hypotension. She is doing well. No recent cardiac symptoms to report. Denies any orthopnea, PND, leg edema. Blood pressure has been generally well controlled. She has no exertional chest pain. She does walk with a cane in his limited exercise activity due to arthritis and back issues but has no symptoms and manage his her own home and lives independently. Takes all her medications. No lightheadedness, syncope. No prolonged palpitation irregular heartbeat. [facility] Medical History Diabetes mellitus with microalbuminuria Hypothyroidism (acquired) Ambulates with cane Seasonal allergies Vaginal atrophy Urinary incontinence LBBB (left bundle branch block) Aortic stenosis Hypothyroidism Hx of edema History of skin cancer Anxiety and depression Type 2 diabetes mellitus without complication, without long-term current use of insulin Chronic fatigue Obesity Sleeps in sitting position due to orthopnea Excessive daytime sleepiness Insomnia Osteopenia of left femoral neck Adrenal mass, right Mixed stress and urge urinary incontinence Multinodular goiter (nontoxic) Chronic venous insufficiency of lower extremity Migraine Osteoarthritis, multiple sites Morbid obesity due to excess calories Melanoma Left malleolar fracture RLS (restless legs syndrome) Thyroid nodule Cervical radiculopathy due to degenerative joint disease of spine LEWIS (nonalcoholic steatohepatitis) Type 2 diabetes mellitus without complication, with no history of insulin use Essential hypertension Dyslipidemia Surgical History History of ankle surgery History of hysteroscopy History of arthroscopy of both knees History of prolapse of bladder Hx of fusion of cervical spine H/O cervical discectomy H/O melanoma excision History of bilateral tubal ligation History of tonsillectomy and adenoidectomy History of bilateral knee replacement Family History Father Colon cancer Skin cancer Prostate cancer Rectal cancer Mother Diabetes mellitus CAD (coronary artery disease) Social History Household Members: Spouse Housing: House Are you a primary patient care director to a significant other at home: No Do you presently have visiting nurse or other home services: No Alcohol intake: never Patient Tobacco Use Status: Never used Tobacco e-Cigarette/Vaping Use: Never Used Second Hand Smoke Exposure: No Substance Use Type: Marijuana Advance Directives Date on File: 07/08/24 service: No Current occupational status: retired Sexual orientation: Straight/Heterosexual Gender identity: Female Cognitive needs: No Hearing needs: No Vision needs: Yes Review of Systems Const Denies daytime sleepiness, Denies difficulty sleeping, Denies snoring, Denies stops breathing during sleep and Denies weakness Card Denies chest pain, Denies rapid heart rate, Denies irregular heart rhythm, Denies claudication, Denies leg edema, Denies lightheadedness, Denies palpitations, Denies dyspnea, Denies dyspnea on exertion, Denies orthopnea, Denies paroxysmal nocturnal dyspnea and Denies slow heart rate Resp Denies cough, Denies dyspnea, Denies dyspnea on exertion and Denies snoring GI Reports no additional complaints, Denies hematochezia, Denies change in stool character and Denies dyspepsia Musc Denies abnormal gait, Denies muscle weakness and Denies numbness Neuro Denies Abnormal speech present, Denies abnormal gait, Denies numbness and Denies weakness Endo Denies palpitations Physical Exam Vital Signs: Last Vital Signs Pulse 63 09/13/25 08:39 BP 124/72 09/13/25 08:39 BMI result Body Mass Index 41.5 Const General: cooperative, comfortable, no acute distress, alert and awake Nutritional Appearance: obese morbidly obese Orientation/consciousness: patient oriented x3 Limitations: ambulation with cane HEENT Head: Yes normocephalic and Yes atraumatic Neck Neck: Yes trachea midline, Yes supple and Yes no JVD Resp Effort & Inspection: normal respiratory effort Auscultation: clear to auscultation bilaterally Cardio Jugular venous distension: no JVD Palpation: normal PMI Rate: regular rate Rhythm: regular rhythm Heart sounds: S1 normal heart sound present, S2 normal heart sound present, no click, no gallops and Murmur heart sound present systolic early, decrescendo and crescendo GI Auscultation: normal bowel sounds Skin General skin exam: no rashes or lesions noted Neuro General: patient oriented x3 and no focal motor deficits Speech: No Abnormal speech present Extrem General: Yes no clubbing, cyanosis or edema Office Procedures EKG Details: EKG shows normal sinus rhythm with left bundle-branch block with left axis deviation, unchanged [id number], Complete Assessment & Plan Assessment & Plan (1) Hypertensive heart disease: Code(s): I11.9 - Hypertensive heart disease without heart failure Category: Medical Plan: Hypertensive heart disease with moderate left ventricular hypertrophy by last echocardiogram with no signs or symptoms of heart failure. Blood pressure is currently well optimized. Follow-up echocardiogram in near future. Aggressive control blood pressure is recommended. Given her calcific valve disease I think she would benefit from aspirin therapy as well as continue statin therapy. LDL is well optimized. Encouraged to maintain activity level and participate in weight loss program. Advised to monitor blood pressure at home maintain a log. Goal blood pressure less than 130/84. (2) Left bundle branch block: Code(s): I44.7 - Left bundle-branch block, unspecified Category: Medical Plan: Conduction system disease with left bundle-branch block. Unchanged with no new symptoms. No particular interventions required from that perspective. Continue monitor LV EF by echocardiogram as well in 6 patient is could developed cardiomyopathy process. (3) Aortic stenosis: Code(s): I35.0 - Nonrheumatic aortic (valve) stenosis Category: Medical Plan: Aortic stenosis if at all presents was minimal to mild with calcific aortic and mitral valve changes noted. Continue medical therapy as above. Follow-up echocardiogram as above. Will follow up in the clinic in 2 years time, sooner PRN. Thank you for allowing me to partake in her care Orders: Orders CA echo transthoracic complete Today I11.9 - Hypertensive heart disease without heart failure Coding Level of Care Code Est Pt Level 4 (33605) Diagnoses Hypertensive heart disease I11.9 Left bundle branch block I44.7 Aortic stenosis I35.0 CPT Codes EKG - CPT: 79746-[id number], Complete ([id number])
== END 2025-09-13 09:07 | disposition home or self-care (01) ==
PROVIDERS: PCP Internal Medicine; Visit Provider Internal Medicine Cardiovascular Disease
DX: I11.9 Hypertensive heart disease without heart failure (principal); I44.7 Left bundle-branch block, unspecified; I35.0 Nonrheumatic aortic (valve) stenosis
CPT/HCPCS: 93010; 99214

== ENCOUNTER → 2025-09-13 08:15 | Outpatient (BNVA) | payer MEDICARE, SELFPAY | PROVIDERS: PCP Internal Medicine; Visit Provider Internal Medicine Cardiovascular Disease | DX: I11.9 Hypertensive heart disease without heart failure (principal); I44.7 Left bundle-branch block, unspecified; I35.0 Nonrheumatic aortic (valve) stenosis; Z79.82 Long term (current) use of aspirin; Z79.899 Other long term (current) drug therapy | CPT/HCPCS: 93005; 99212 ==